=== PATIENT | male | born 1995 | race Caucasian/White ===

== ENCOUNTER 2019-09-28 17:19 | Observation (INO) | payer OTHER ==
[2019-09-28 17:29] VITALS: RESP 18
[2019-09-28] MEDS ORDERED: NALOXONE 0.4 MG/ML 1 ML VIAL IV PRN (18:02)
[2019-09-28] MEDS ORDERED: LORazepam 2 MG/ML INJ IV PRN (18:02)
--- NOTE | 2019-09-28 18:02 | ED ---
General Adult HPI - General Chief complaint: Nausea/Vomiting/Diarrhea Stated complaint: vomiting Time Seen by Provider: 09/28/19 17:30 Source: patient, EMS, RN notes reviewed, old records reviewed (Reviewed report from [facility]) Mode of arrival: EMS Limitations: no limitations - History of Present Illness Initial comments: Patient is a pleasant 23-year-old male presenting to the emergency Department as a transfer from [facility]. Patient has history of cyclic vomiting and states this is approximately his 12 time. Symptoms started this morning. Patient has vomited multiple times. Mild abdominal discomfort. patient diarrhea. No fevers. No bleeding. Patient admits to occasional marijuana use. Patient has been counseled on this. Patient has yet to see a a gastrointestinal specialist. - Related Data Allergies Allergy/AdvReac Type Severity Reaction Status Date / Time No Known Allergies Allergy Verified 09/28/19 17:25 Review of Systems ROS Statement: Those systems with pertinent positive or pertinent negative responses have been documented in the HPI. ROS Other: All systems not noted in ROS Statement are negative. Constitutional: Denies: fever Eyes: Denies: eye pain ENT: Denies: ear pain Respiratory: Denies: cough Cardiovascular: Denies: chest pain Endocrine: Denies: fatigue Gastrointestinal: Reports: nausea, vomiting. Denies: diarrhea, constipation Genitourinary: Denies: dysuria Musculoskeletal: Denies: back pain Skin: Denies: rash Neurological: Denies: weakness Past Medical History Past Medical History: No Reported History History of Any Multi-Drug Resistant Organisms: None Reported Past Surgical History: No Surgical Hx Reported Past Psychological History: No Psychological Hx Reported Smoking Status: Current every day smoker Past Alcohol Use History: None Reported Past Drug Use History: Marijuana General Exam Limitations: no limitations General appearance: alert, in no apparent distress Head exam: Present: normocephalic Eye exam: Present: normal appearance ENT exam: Present: normal oropharynx Neck exam: Present: normal inspection Respiratory exam: Present: normal lung sounds bilaterally Cardiovascular Exam: Present: regular rate, normal rhythm GI/Abdominal exam: Present: soft. Absent: distended, tenderness Extremities exam: Present: normal inspection Neurological exam: Present: alert Psychiatric exam: Present: normal affect, normal mood Skin exam: Present: normal color Course Vital Signs 09/28/19 17:26 Temperature 98.9 F Pulse Rate 61 Respiratory 18 Rate Blood Pressure 130/80 O2 Sat by Pulse 98 Oximetry Medical Decision Making - Medical Decision Making Chart reviewed. Case discussed with Dr. Bustillos, who will admit covering for hos pital call. Disposition Clinical Impression: Cyclical vomiting Disposition: ADMITTED IP TO THIS HOSP Is patient prescribed a controlled substance at d/c from ED?: No Referrals: None,Stated [Primary Care Provider] - 1-2 days Decision Time: 18:01
[2019-09-28] MEDS: SODIUM CHLORIDE 0.9% 1,000 ML IV SCH (20:21)
[2019-09-28] MEDS: PANTOPRAZOLE 40 MG/10 ML VIAL IV SCH (20:21)
[2019-09-28] MEDS ORDERED: ONDANSETRON 4 MG/2 ML VIAL IVP PRN (20:30)
--- NOTE | 2019-09-28 20:35 | P.HPIM ---
History of Present Illness H&P Date: 09/28/19 Chief Complaint: Nausea vomiting abdominal pain The patient is a 23-year-old male with a reported past medical history of cyclic vomiting syndrome, marijuana abuse disorder who was transferred here from [facility] after presented earlier today with chief complaint of sudden onset nausea vomiting abdominal cramps which reported severe without any significant radiation. The patient denies any diarrhea or constipation, but reports subjective fevers and chills. The patient reports that his symptoms are worsened by eating and drinking and only thing that helps is to be nothing by mouth. Apparently the patient has had multiple episodes with similar presentation and was referred to gastroenterology but hasn't been able to be seen by a GI doctor hence on presentation today the referred here for GI consultation. The patient was evaluated in the ED in [place] labs were done at the mouth is include a white count of 19 with left shift serum bicarb was 20, BUN/creatinine was 17 and 0.6 KUB was within normal limits. Patient was given Phenergan, GI cocktail, IV fluids and transferred here for GI consultation Review of Systems Pertinent pauses per HPI all other review of system is otherwise negative Past Medical History Past Medical History: No Reported History History of Any Multi-Drug Resistant Organisms: None Reported Past Surgical History: No Surgical Hx Reported Past Psychological History: No Psychological Hx Reported Smoking Status: Current every day smoker Past Alcohol Use History: None Reported Past Drug Use History: Marijuana Medications and Allergies Home Medications Medication Instructions Recorded Confirmed Type No Known Home Medications 09/28/19 09/28/19 History Allergies Allergy/AdvReac Type Severity Reaction Status Date / Time No Known Allergies Allergy Verified 09/28/19 18:23 Physical Exam Vitals: Vital Signs Temp Pulse Resp BP Pulse Ox 09/28/19 19:54 59 L 18 126/54 96 09/28/19 17:26 98.9 F 61 18 130/80 98 Intake and Output 09/28/19 09/28/19 09/28/19 06:59 14:59 22:59 Other: Weight 92.533 kg Constitutional: No acute distress, conversant, pleasant Eyes: Anicteric sclerae, moist conjunctiva, no lid-lag, PERRLA ENMT: NC/AT,Oropharynx clear, no erythema, exudates Neck:Supple, FROM, no masses, or JVD, No carotid bruits; No thyromegaly Lungs: Clear to auscultation, Clear to percussion, Normal respiratory effort, no accessory muscle use Cardiovascular: Heart regular in rate and rhythm, No murmurs, gallops, or rubs no peripheral edema Abdominal: Soft Nontender, nom distended, no guarding, no rebound or rigidity, Normoactive bowel sounds No hepatomegaly, No splenomegaly, No palpable mass No abdominal wall hernia noted Skin: Normal temperature, tone, texture, turgor, No induration No subcutaneous nodules, No rash, lesions, No ulcers Extremities:No digital cyanosis No clubbing, Pedal pulses intact and symmetrical Radial pulses intact and symmetrical Normal gait and station, No calf tenderness Psychiatric: Alert and oriented to person, place and time, Appropriate affect Intact judgement Neuro: Muscles Strength 5/5 in all 4 extremities, Sensation to light touch grossly present throughout, Cranial nerves II-XII grossly intact. No focal sensory deficits Assessment and Plan Assessment: Intractable nausea vomiting Abdominal pain History of cyclical vomiting syndrome Leukocytosis Plan: The patient is placed in observation status anticipated less than 2 midnight stay with intractable nausea vomiting and abdominal pain The patient with a history of cyclical vomiting syndrome with poor follow-up with GI was transferred here for GI consultation. The patient does not have any significant electrolyte abnormalities but does have a pronounced leukocytosis possibly acute phase stress response, he is afebrile. We'll continue supportive therapy with antiemetics, Zofran and IV fluids along with Bentyl with plans for GI consultation. Continue to follow the patient's clinical course CODE STATUS: Full code Anticipated discharge place: Home Discussed plan of care with: Patient Greater than 60 minutes was spent in evaluation of this patient
--- NOTE | 2019-09-28 21:11 | XR ---
EXAMINATION TYPE: XR chest 2V DATE OF EXAM: 09/28/2019 COMPARISON: Today HISTORY: Leukocytosis. Vomiting. TECHNIQUE: FINDINGS: Heart and mediastinum are normal. Lungs are clear. Diaphragm is normal. Bony thorax appears normal. IMPRESSION: Normal chest. No change.
[2019-09-28] MEDS: METOCLOPRAMIDE 5 MG/ML 2 ML VIAL IVP SCH (23:40)
[2019-09-28] MEDS: DICYCLOMINE 10 MG CAP PO SCH (23:40)
[2019-09-29] MEDS: SODIUM CHLORIDE 0.9% 1,000 ML IV SCH ×2 (02:23→11:23)
[2019-09-29] MEDS: METOCLOPRAMIDE 5 MG/ML 2 ML VIAL IVP SCH (05:32)
[2019-09-29 06:08] VITALS: BP 114/67; PULSE 52; TEMP 98.3
[2019-09-29] MEDS: DICYCLOMINE 10 MG CAP PO SCH (08:59)
[2019-09-29] MEDS: PANTOPRAZOLE 40 MG/10 ML VIAL IV SCH (08:59)
--- NOTE | 2019-09-29 10:36 | P.DS ---
Providers Date of admission: 09/28/19 18:02 Expected date of discharge: 09/29/19 Attending physician: Gil Barrientos MD Consults: 09/28/19 18:02 Consult Physician Urgent Consulting Provider: Kim Llanes Consult Reason/Comments: Cyclic vomiting Do you want consulting provider notified?: Yes Primary care physician: Stated None Hospital Course: The patient is a 23-year-old male with a reported past medical history of cyclic vomiting syndrome, marijuana abuse disorder who was transferred here from [facility] after presented earlier today with chief complaint of sudden onset nausea vomiting abdominal cramps which reported severe without any significant radiation. The patient was evaluated in the ED in [place] labs were done at the mouth is include a white count of 19 with left shift serum bicarb was 20, BUN/creatinine was 17 and 0.6 KUB was within normal limits. Patient was given Phenergan, GI cocktail, IV fluids and transferred here for GI consultation. Patient was initially started on normal saline at 125 mL per hour. He was given Protonix IV. He was given Zofran as needed for nausea and vomiting. His symptoms resolved the day after admission. Patient was seen and examined. No acute events overnight. Patient reports no further abdominal pain. No nausea or vomiting. No fever or chills. He does report anxiety and history of panic attacks at least twice a week. Patient smokes marijuana since age of 7. General: [non toxic], [no distress], [appears at stated age] Derm: [warm], [dry] Head: [atraumatic], [normocephalic], [symmetric] Eyes: [EOMI], [no lid lag], [anicteric sclera] Mouth: [no lip lesion], [mucus membranes moist] Cardiovascular: [S1S2 reg], [no murmur], [positive posterior tibial pulse bilateral], Lungs: [CTA bilateral], [no rhonchi, no rales] , [no accessory muscle use] Abdominal: [soft], [ nontender to palpation], [no guarding], [no appreciable organomegaly] Ext: [no gross muscle atrophy], [no edema], [no contractures] Neuro: [no focal neuro deficits] Psych: [Alert], [oriented], [appropriate affect] Intractable nausea and vomiting Abdominal pain History of cyclical vomiting syndrome Leukocytosis Patient symptoms have resolved. His nausea and vomiting is likely related to cyclical vomiting syndrome which is exacerbated by marijuana use. Patient was advised against marijuana use. Patient was advised that he would benefit from treatment of anxiety and panic attacks as this could be the cause of his cyclical vomiting. We'll discharge patient today to follow-up with his PCP within 3 days. Prescription for Zofran will be given on discharge. Patient verbalized understanding of the plan. Patient Condition at Discharge: Stable Plan - Discharge Summary New Discharge Prescriptions: New Ondansetron Odt [Zofran Odt] 4 mg PO Q8HR PRN #30 tab PRN Reason: Nausea And Vomiting Discharge Medication List Ondansetron Odt [Zofran Odt] 4 mg PO Q8HR PRN #30 tab 09/29/19 [Rx] Follow up Appointment(s)/Referral(s): None,Stated [Primary Care Provider] - 1-2 days Activity/Diet/Wound Care/Special Instructions: Diet: Low fiber Follow-up with PCP within 3 days of discharge. Discharge Disposition: HOME SELF-CARE
== END 2019-09-29 11:25 | disposition home or self-care (01) ==
LOC: EC 17:19 → 6NMEDSUR 18:02
PROVIDERS: ADMIT Family Medicine; ATTEND Family Medicine
DX: R11.15 Cyclical vomiting syndrome unrelated to migraine (principal); F12.10 Cannabis abuse, uncomplicated; R10.9 Unspecified abdominal pain; D72.829 Elevated white blood cell count, unspecified; F17.200 Nicotine dependence, unspecified, uncomplicated
CPT/HCPCS: 96376; 96361 ×2; 96374; 96375; 99285; 71046; G0378 ×2; J2765 ×2; C9113 ×2

== ENCOUNTER 2019-11-21 01:50 | Observation (INO) | payer OTHER ==
[2019-11-21] MEDS ORDERED: SODIUM CHLORIDE 0.9% 1,000 ML IV STA ×2 (01:55)
[2019-11-21] MEDS ORDERED: SODIUM CHLORIDE 0.9% 500 ML 500 ML IV STA (01:55)
[2019-11-21] MEDS ORDERED: ONDANSETRON 4 MG/2 ML VIAL IVP STA (01:55)
[2019-11-21] MEDS ORDERED: PANTOPRAZOLE 40 MG/10 ML VIAL IVP STA (01:55)
--- NOTE | 2019-11-21 01:56 | ED ---
Nausea/Vomiting/Diarrhea HPI - General Chief complaint: Nausea/Vomiting/Diarrhea Stated complaint: vomiting Time Seen by Provider: 11/21/19 01:53 Source: patient, EMS, RN notes reviewed, old records reviewed Mode of arrival: EMS Limitations: no limitations - History of Present Illness MD complaint: nausea, vomiting, diarrhea -: days(s) Description of Vomiting: food contents Description of Diarrhea: mucous Associated Abdominal Pain: Yes Location: diffuse Radiation: none Severity: severe Severity scale (1-10): 8 Quality: cramping, aching Consistency: constant Improves with: none Worsens with: vomiting Context: sick contacts Associated Symptoms: myalgias, loss of appetite, nausea/vomiting, weakness - Related Data Previous Rx's Medication Instructions Recorded Ondansetron [Zofran] 4 mg PO Q12HR PRN #8 tab 11/21/19 Pantoprazole Sodium [Protonix] 40 mg PO DAILY #30 tablet. 11/21/19 Allergies Allergy/AdvReac Type Severity Reaction Status Date / Time No Known Allergies Allergy Verified 09/28/19 18:23 Review of Systems ROS Statement: Those systems with pertinent positive or pertinent negative responses have been documented in the HPI. ROS Other: All systems not noted in ROS Statement are negative. Past Medical History Past Medical History: No Reported History History of Any Multi-Drug Resistant Organisms: None Reported Past Surgical History: No Surgical Hx Reported Past Psychological History: No Psychological Hx Reported Smoking Status: Current every day smoker Past Alcohol Use History: None Reported Past Drug Use History: Marijuana - Past Family History Father Family Medical History: Diabetes Mellitus Additional Family Medical History / Comment(s): . Alcoholism. Mother History Unknown: Yes Additional Family Medical History / Comment(s): Hypoglycemia General Exam Limitations: no limitations General appearance: alert, in no apparent distress Head exam: Present: atraumatic, normocephalic, normal inspection Eye exam: Present: normal appearance, PERRL, EOMI. Absent: scleral icterus, conjunctival injection, periorbital swelling ENT exam: Present: normal exam, mucous membranes moist Neck exam: Present: normal inspection. Absent: tenderness, meningismus, lymphadenopathy Respiratory exam: Present: normal lung sounds bilaterally. Absent: respiratory distress, wheezes, rales, rhonchi, stridor Cardiovascular Exam: Present: regular rate, normal rhythm, normal heart sounds. Absent: systolic murmur, diastolic murmur, rubs, gallop, clicks GI/Abdominal exam: Present: soft, normal bowel sounds. Absent: distended, tenderness, guarding, rebound, rigid Extremities exam: Present: normal inspection, full ROM, normal capillary refill. Absent: tenderness, pedal edema, joint swelling, calf tenderness Back exam: Present: normal inspection Neurological exam: Present: alert, oriented X3, CN II-XII intact Psychiatric exam: Present: normal affect, normal mood Skin exam: Present: warm, dry, intact, normal color. Absent: rash Course Vital Signs 11/21/19 11/21/19 11/21/19 01:51 03:10 03:59 Temperature 98.7 F 98.6 F Pulse Rate 67 62 Pulse Rate [ 67 Pulse Oximetery ] Respiratory 18 16 18 Rate Blood Pressure 154/82 112/57 Blood Pressure 106/65 [Left Arm Supine] O2 Sat by Pulse 98 97 95 Oximetry Medical Decision Making - Lab Data Result diagrams: 11/21/19 02:26 11/21/19 02:26 Lab Results 11/21/19 11/21/19 11/21/19 Range/Units 02:26 02:26 02:26 WBC 15.1 H (3.8-10.6) k/uL RBC 5.17 (4.30-5.90) m/uL Hgb 16.8 (13.0-17.5) gm/dL Hct 48.5 (39.0-53.0) % MCV 93.7 (80.0-100.0) fL MCH 32.5 (25.0-35.0) pg MCHC 34.7 (31.0-37.0) g/dL RDW 12.7 (11.5-15.5) % Plt Count 278 (150-450) k/uL Neutrophils % 90 % Lymphocytes % 6 % Monocytes % 3 % Eosinophils % 1 % Basophils % 0 % Neutrophils # 13.6 H (1.3-7.7) k/uL Lymphocytes # 0.8 L (1.0-4.8) k/uL Monocytes # 0.4 (0-1.0) k/uL Eosinophils # 0.1 (0-0.7) k/uL Basophils # 0.0 (0-0.2) k/uL Sodium 139 (137-145) mmol/L Potassium 3.9 (3.5-5.1) mmol/L Chloride 103 (98-107) mmol/L Carbon Dioxide 22 (22-30) mmol/L Anion Gap 14 mmol/L BUN 19 (9-20) mg/dL Creatinine 0.63 L (0.66-1.25) mg/dL Est GFR (CKD-EPI)AfAm >90 (>60 ml/min/1.73 sqM) Est GFR (CKD-EPI)NonAf >90 (>60 ml/min/1.73 sqM) Glucose 145 H (74-99) mg/dL Plasma Lactic Acid Rodger 1.5 (0.7-2.0) mmol/L Calcium 10.6 H (8.4-10.2) mg/dL Phosphorus 3.2 (2.5-4.5) mg/dL Magnesium 1.8 (1.6-2.3) mg/dL Total Bilirubin 1.1 (0.2-1.3) mg/dL AST 24 (17-59) U/L ALT 30 (4-49) U/L Alkaline Phosphatase 45 (38-126) U/L Creatine Kinase 163 (55-170) U/L Total Protein 8.7 H (6.3-8.2) g/dL Albumin 5.4 H (3.5-5.0) g/dL Disposition Clinical Impression: Dehydration, Cyclical vomiting, Intractable nausea and vomiting Disposition: ADMITTED IP TO THIS [facility] Condition: Good Is patient prescribed a controlled substance at d/c from ED?: No
[2019-11-21] MEDS ORDERED: DIAZEPAM 5 MG/ML 2 ML INJ IVP STA (01:58)
[2019-11-21 02:37] LABS: Basophils % (A) 0 %; Eosinophils # (A) 0.1 k/uL (0-0.7); Eosinophils % (A) 1 %; HCT 48.5 % (39.0-53.0); HGB 16.8 gm/dL (13.0-17.5); Lymphocytes # (A) 0.8 k/uL (1.0-4.8); Lymphocytes % (A) 6 %; MCH 32.5 pg (25.0-35.0); MCHC 34.7 g/dL (31.0-37.0); MCV 93.7 fL (80.0-100.0); Mean Platelet Volume 7.7; Monocytes # (A) 0.4 k/uL (0-1.0); Monocytes % (A) 3 %; Neutrophils # (A) 13.6 k/uL (1.3-7.7); Neutrophils % (A) 90 %; Platelet Count 278 k/uL (150-450); RBC 5.17 m/uL (4.30-5.90); RDW 12.7 % (11.5-15.5); WBC 15.1 k/uL (3.8-10.6)
[2019-11-21 02:47] LABS: ALT 30 U/L (4-49); AST 24 U/L (17-59); African American GFR (CKD) >90 (>60 ml/min/1.73 sqM); Albumin 5.4 g/dL (3.5-5.0); Alkaline Phosphatase 45 U/L (38-126); Anion Gap 14 mmol/L; Blood Urea Nitrogen 19 mg/dL (9-20); Calcium 10.6 mg/dL (8.4-10.2); Carbon Dioxide 22 mmol/L (22-30); Chloride 103 mmol/L (98-107); Creatine Kinase 163 U/L (55-170); Glucose 145 mg/dL (74-99); Magnesium 1.8 mg/dL (1.6-2.3); Non-African American GFR(CKD) >90 (>60 ml/min/1.73 sqM); Phosphorus 3.2 mg/dL (2.5-4.5); Potassium 3.9 mmol/L (3.5-5.1); Sodium 139 mmol/L (137-145); Total Bilirubin 1.1 mg/dL (0.2-1.3); Total Protein 8.7 g/dL (6.3-8.2)
[2019-11-21] MEDS ORDERED: ONDANSETRON 4 MG/2 ML VIAL IVP PRN (03:33)
[2019-11-21] MEDS ORDERED: DIAZEPAM 5 MG/ML 2 ML INJ IVP PRN (03:33)
[2019-11-21 05:15] LABS: Appearance,Urine Clear (Clear); Bilirubin,Urine Negative (Negative); Blood,Urine Negative (Negative); Color,Urine Yellow; Glucose,Urine (UA) Negative (Negative); Hyaline Casts,Urine 1 /lpf (0-2); Ketones,Urine 3+ (Negative); Leukocyte Esterase,Urine Negative (Negative); Mucus,Urine Many /hpf; Nitrite,Urine Negative (Negative); Protein,Urine 1+ (Negative); RBC,Urine 4 /hpf (0-5); Specific Gravity,Urine 1.028 (1.001-1.035); Squamous Epithelial Cell,Urine <1 /hpf (0-4); Urobilinogen,Urine <2.0 mg/dL (<2.0); WBC,Urine 8 /hpf (0-5)
[2019-11-21] MEDS ORDERED: PANTOPRAZOLE 40 MG/10 ML VIAL IVP SCH (09:00)
[2019-11-21 11:51] VITALS: BP 147/73; PULSE 64; RESP 17; TEMP 98.2
--- NOTE | 2019-11-21 21:14 | HP ---
HISTORY AND PHYSICAL This is a combination history and physical and discharge summary. HISTORY AND PHYSICAL/DISCHARGE SUMMARY: CHIEF COMPLAINT: Abdominal pain and vomiting. HISTORY OF PRESENT ILLNESS: This 24-year-old gentleman with past medical history of multiple medical problems including history of cyclical vomiting with multiple hospital admissions, history of anxiety, PTSD, history of nicotine dependence, being followed by primary physician apparently in [facility], was complaining of significant vomiting. The patient also had some abdominal discomfort. Patient came to [facility] and was admitted for further evaluation and treatment. The patient also had elevated white count. Otherwise, there is no history of fever, rigors, chills at this time. No chest pain, palpitations. After receiving treatment, patient is feeling slightly better. PAST MEDICAL HISTORY: History of cyclical vomiting. History of anxiety, PTSD, history of THC. MEDICATIONS: Prior to admission include: 1. Protonix 40 mg daily. 2. Zofran. ALLERGIES: None. FAMILY HISTORY: History of diabetes mellitus and alcoholics in the family. SOCIAL HISTORY: History of smoking. History of THC. REVIEW OF SYSTEMS: ENT: No diminished vision. No diminished hearing. CARDIOVASCULAR: No angina or palpitations. RESPIRATIONS: As mentioned earlier. GASTROINTESTINAL: As mentioned earlier. no dysuria. NERVOUS SYSTEM: No numbness or weakness. ALLERGY/IMMUNOLOGY: No asthma or hayfever. MUSCULOSKELETAL as mentioned earlier. HEMATOLOGY/ONCOLOGY: No history of anemia. ENDOCRINE: No history of diabetes or hypothyroidism. CONSTITUTIONAL: As mentioned earlier. DERMATOLOGY: Negative. RHEUMATOLOGY: Negative. PSYCHIATRIC: As mentioned earlier. PHYSICAL EXAMINATION: Alert and oriented times three. Pulse 64. Blood pressure 147/73. Respirations 17. Temperature 98.2, pulse ox 98% on room air. HEENT: Conjunctivae normal. NECK: No JVD. CARDIOVASCULAR: S1, S2 muffled. RESPIRATORY: Breath sounds diminished in the bases. A few scattered rhonchi and crackles. ABDOMEN: Soft, nontender. No mass palpable. LEGS: No edema. No swelling. NERVOUS SYSTEM: Higher functions as mentioned earlier. Moves all four limbs. No focal motor or sensory deficits. LYMPHATICS: No lymph nodes palpable in the neck, axillae or groin. SKIN: No ulcer. No rash and no bleeding. JOINTS: No active deforming arthropathy. LABS: WBC 15.1, glucose 145, calcium is 10.6. ASSESSMENT: 1. Cyclical vomiting syndrome with severe nausea, vomiting, accelerated dehydration, present on admission. 2. Increased WBC possibly reactive. 3. Increased random blood sugar. 4. Increased calcium. 5. History of anxiety, PTSD. 6. History of nicotine dependence. 7. History of THC. RECOMMENDATIONS AND DISCUSSION: In this 24-year-old gentleman who presented with multiple complex medical issues, we will monitor the patient closely, continue the current medications, management and symptomatic treatment. I recommend an upper endoscopy by Dr. Goss if the symptoms persist. Otherwise, recommend to stop THC and will recommend to continue the home medications. The patient is extremely keen on going home. The patient is willing to follow up with primary physician as well as Gastroenterology. The patient will be discharged if the patient is able to tolerate food with the following advice and medications: DISCHARGE ADVICE AND MEDICATIONS: 1. Diet is soft, bland as tolerated. 2. Medications: 3. Protonix 40 mg daily. 4. Zofran 4 mg p.o. b.i.d. p.r.n. MMCHELSEA / EVETTEN: [id number] /
== END 2019-11-21 12:31 | disposition home or self-care (01) ==
LOC: EC 01:50 → 5NMEDONC 03:35
PROVIDERS: ADMIT Hospitalist; ATTEND Hospitalist
DX: R11.15 Cyclical vomiting syndrome unrelated to migraine (principal); E86.0 Dehydration; D72.829 Elevated white blood cell count, unspecified; R73.09 Other abnormal glucose; E83.50 Unspecified disorder of calcium metabolism; R63.0 Anorexia; M79.10 Myalgia, unspecified site; F12.90 Cannabis use, unspecified, uncomplicated; F43.10 Post-traumatic stress disorder, unspecified; F41.9 Anxiety disorder, unspecified; F17.200 Nicotine dependence, unspecified, uncomplicated; Z83.3 Family history of diabetes mellitus; Z81.1 Family history of alcohol abuse and dependence
CPT/HCPCS: 96376; 96361; 96374; 96375; 99285; 36415; 80053; 82550; 83605; 83735; 84100; 85025; 81001; G0378; J3360; J2405; C9113

== ENCOUNTER 2019-12-10 12:56 | Emergency (ER) | payer OTHER ==
[2019-12-10] MEDS ORDERED: SODIUM CHLORIDE 0.9% 2,000 ML IV STA (12:58)
[2019-12-10] MEDS ORDERED: diphenhydrAMINE 50 MG/ML 1 ML VIAL IVP STA (12:58)
[2019-12-10] MEDS ORDERED: ONDANSETRON 4 MG/2 ML VIAL IVP STA (12:58)
[2019-12-10] MEDS ORDERED: PROMETHAZINE INJ 25 MG in SODIUM CHLORIDE 0.9% 50 ML IVPB STA (13:00)
[2019-12-10 13:06] VITALS: BP 127/83; PULSE 64; RESP 18; TEMP 98
--- NOTE | 2019-12-10 13:31 | ED ---
General Adult HPI - General Chief complaint: Anxiety Stated complaint: Vomiting, Anxiety Time Seen by Provider: 12/10/19 12:57 Source: patient, EMS, RN notes reviewed Mode of arrival: EMS Limitations: no limitations - History of Present Illness Initial comments: This is a 24-year-old male presents emergency Department chief complaint of nausea vomiting. Patient has a history of cyclic vomiting syndrome. Patient states that he recently moved to the area. He is to be seen primarily at [facility] and [facility]. Patient has been admitted in the past. Patient states he takes Zofran and Protonix he is out of his Zofran. He has no point of severe localized abdominal pain states is diffuse in nature. He states he just has not felt well over the last couple days. He states he stressed out at home secondary to his stomach virus, stress from his kids. Patient denies being suicidal or homicidal. Denies any chest pain or shortness of breath. - Related Data Previous Rx's Medication Instructions Recorded Ondansetron [Zofran] 4 mg PO Q12HR PRN #8 tab 11/21/19 Pantoprazole Sodium [Protonix] 40 mg PO DAILY #30 tablet. 11/21/19 Promethazine [Phenergan] 25 mg PO Q6HR PRN #15 tablet 12/10/19 Allergies Allergy/AdvReac Type Severity Reaction Status Date / Time No Known Allergies Allergy Verified 09/28/19 18:23 Review of Systems ROS Statement: Those systems with pertinent positive or pertinent negative responses have been documented in the HPI. ROS Other: All systems not noted in ROS Statement are negative. Past Medical History Past Medical History: No Reported History Additional Past Medical History / Comment(s): Cyclic vomiting syndrome History of Any Multi-Drug Resistant Organisms: None Reported Past Surgical History: No Surgical Hx Reported Additional Past Surgical History / Comment(s): Stitches, plantar wart removed Past Anesthesia/Blood Transfusion Reactions: No Reported Reaction Past Psychological History: No Psychological Hx Reported Smoking Status: Current every day smoker Past Alcohol Use History: None Reported Past Drug Use History: Marijuana - Past Family History Father Family Medical History: Diabetes Mellitus Additional Family Medical History / Comment(s): . Alcoholism. Mother History Unknown: Yes Additional Family Medical History / Comment(s): Hypoglycemia General Exam Limitations: no limitations General appearance: alert, in no apparent distress Head exam: Present: atraumatic, normocephalic, normal inspection Eye exam: Present: normal appearance, PERRL, EOMI. Absent: scleral icterus, conjunctival injection, periorbital swelling ENT exam: Present: normal exam, normal oropharynx, mucous membranes moist, TM's normal bilaterally Neck exam: Present: normal inspection, full ROM. Absent: tenderness, meningismus, lymphadenopathy Respiratory exam: Present: normal lung sounds bilaterally. Absent: respiratory distress, wheezes, rales, rhonchi, stridor Cardiovascular Exam: Present: regular rate, normal rhythm, normal heart sounds. Absent: systolic murmur, diastolic murmur, rubs, gallop, clicks GI/Abdominal exam: Present: soft, tenderness (Minimal diffuse), normal bowel sounds. Absent: distended, guarding, rebound, rigid Neurological exam: Present: alert, oriented X3, CN II-XII intact Skin exam: Present: warm, dry, intact, normal color. Absent: rash Course Vital Signs 12/10/19 13:00 Temperature 98.0 F Pulse Rate 64 Respiratory 18 Rate Blood Pressure 127/83 O2 Sat by Pulse 98 Oximetry - Reevaluation(s) Reevaluation #1: 12/10/19 13:51 Patient reevaluated states it is feeling much improved at this time. Medical Decision Making - Medical Decision Making Patient presented for cyclic vomiting syndrome. I do feel this is most likely related to his marijuana use in which he's been told to discontinue. Patient is reviewed no significant findings. Patient will be discharged stable condition with GI follow-up, antiemetics. - Lab Data Result diagrams: 12/10/19 13:14 12/10/19 13:14 Lab Results 12/10/19 12/10/19 Range/Units 13:14 13:14 WBC 11.5 H (3.8-10.6) k/uL RBC 5.00 (4.30-5.90) m/uL Hgb 16.6 (13.0-17.5) gm/dL Hct 48.0 (39.0-53.0) % MCV 96.0 (80.0-100.0) fL MCH 33.2 (25.0-35.0) pg MCHC 34.5 (31.0-37.0) g/dL RDW 12.1 (11.5-15.5) % Plt Count 233 (150-450) k/uL Neutrophils % 87 % Lymphocytes % 9 % Monocytes % 3 % Eosinophils % 0 % Basophils % 0 % Neutrophils # 10.1 H (1.3-7.7) k/uL Lymphocytes # 1.0 (1.0-4.8) k/uL Monocytes # 0.3 (0-1.0) k/uL Eosinophils # 0.0 (0-0.7) k/uL Basophils # 0.1 (0-0.2) k/uL Sodium 139 (137-145) mmol/L Potassium 4.0 (3.5-5.1) mmol/L Chloride 106 (98-107) mmol/L Carbon Dioxide 21 L (22-30) mmol/L Anion Gap 12 mmol/L BUN 16 (9-20) mg/dL Creatinine 0.69 (0.66-1.25) mg/dL Est GFR (CKD-EPI)AfAm >90 (>60 ml/min/1.73 sqM) Est GFR (CKD-EPI)NonAf >90 (>60 ml/min/1.73 sqM) Glucose 106 H (74-99) mg/dL Calcium 9.6 (8.4-10.2) mg/dL Total Bilirubin 1.3 (0.2-1.3) mg/dL AST 22 (17-59) U/L ALT 18 (4-49) U/L Alkaline Phosphatase 42 (38-126) U/L Total Protein 7.8 (6.3-8.2) g/dL Albumin 4.8 (3.5-5.0) g/dL Amylase 47 (30-110) U/L Lipase 71 (23-300) U/L Disposition Clinical Impression: Cyclical vomiting Disposition: HOME SELF-CARE Condition: Stable Instructions (If sedation given, give patient instructions): Cyclic Vomiting Syndrome (ED) Additional Instructions: Please return to the Emergency Department if symptoms worsen or any other concerns. Prescriptions: Promethazine [Phenergan] 25 mg PO Q6HR PRN #15 tablet PRN Reason: Nausea Is patient prescribed a controlled substance at d/c from ED?: No Referrals: None,Stated [Primary Care Provider] - 1-2 days Time of Disposition: 13:53
[2019-12-10 13:38] LABS: Basophils # (A) 0.1 k/uL (0-0.2); Basophils % (A) 0 %; Eosinophils % (A) 0 %; HGB 16.6 gm/dL (13.0-17.5); Lymphocytes % (A) 9 %; MCH 33.2 pg (25.0-35.0); MCHC 34.5 g/dL (31.0-37.0); Mean Platelet Volume 7.4; Monocytes # (A) 0.3 k/uL (0-1.0); Monocytes % (A) 3 %; Neutrophils # (A) 10.1 k/uL (1.3-7.7); Neutrophils % (A) 87 %; Platelet Count 233 k/uL (150-450); RDW 12.1 % (11.5-15.5); WBC 11.5 k/uL (3.8-10.6)
[2019-12-10 13:50] LABS: ALT 18 U/L (4-49); AST 22 U/L (17-59); African American GFR (CKD) >90 (>60 ml/min/1.73 sqM); Albumin 4.8 g/dL (3.5-5.0); Alkaline Phosphatase 42 U/L (38-126); Amylase 47 U/L (30-110); Anion Gap 12 mmol/L; Blood Urea Nitrogen 16 mg/dL (9-20); Calcium 9.6 mg/dL (8.4-10.2); Carbon Dioxide 21 mmol/L (22-30); Chloride 106 mmol/L (98-107); Glucose 106 mg/dL (74-99); Non-African American GFR(CKD) >90 (>60 ml/min/1.73 sqM); Sodium 139 mmol/L (137-145); Total Bilirubin 1.3 mg/dL (0.2-1.3); Total Protein 7.8 g/dL (6.3-8.2)
== END 2019-12-10 14:39 | disposition home or self-care (01) ==
LOC: EC 12:56
DX: R11.15 Cyclical vomiting syndrome unrelated to migraine (principal); F17.200 Nicotine dependence, unspecified, uncomplicated
CPT/HCPCS: 99284; 96365; 96375 ×2; 96361; 36415; 80053; 82150; 83690; 85025; J1200; J2550; J2405

== ENCOUNTER 2019-12-24 12:05 | Observation (INO) | payer OTHER ==
[2019-12-24] MEDS ORDERED: SODIUM CHLORIDE 0.9% 1,000 ML IV STA ×2 (12:19→14:00)
[2019-12-24] MEDS ORDERED: diphenhydrAMINE 50 MG/ML 1 ML VIAL IVP STA (12:19)
[2019-12-24] MEDS ORDERED: PANTOPRAZOLE 40 MG/10 ML VIAL IVP STA (12:19)
--- NOTE | 2019-12-24 12:24 | ED ---
Nausea/Vomiting/Diarrhea HPI - General Chief complaint: Nausea/Vomiting/Diarrhea Stated complaint: Vomiting Time Seen by Provider: 12/24/19 12:07 Source: patient Mode of arrival: EMS Limitations: no limitations - History of Present Illness Initial comments: Patient is a 24-year-old male presenting to the emergency Department, via EMS, with complaints of vomiting that started this morning. Patient has a history of cyclic vomiting syndrome. He was in here approximately 2 weeks ago for same complaint. Patient states he does have Zofran, Protonix, Pepcid at home however he was unable to keep these medicines down. Patient states he did follow up wi GI. Patient received 4 mg of Zofran in the EMS prior to arrival. Patient does admit to generalized abdominal cramping, no specific abdominal pain. He denies any chest pain, short of breath, fever. Patient states he is having chills. Patient denies any diarrhea. Patient does admit to smoking marijuana although he does not believe this is the cause of his vomiting. He has no other complaints at this time. - Related Data Home Medications Medication Instructions Recorded Confirmed Famotidine 20 mg PO HS 12/24/19 12/24/19 Ondansetron [Zofran ODT] 8 mg PO Q12H PRN 12/24/19 12/24/19 Pantoprazole Sodium [Protonix] 40 mg PO BID 12/24/19 12/24/19 Allergies Allergy/AdvReac Type Severity Reaction Status Date / Time No Known Allergies Allergy Verified 12/24/19 15:34 Review of Systems ROS Statement: Those systems with pertinent positive or pertinent negative responses have been documented in the HPI. ROS Other: All systems not noted in ROS Statement are negative. Past Medical History Past Medical History: No Reported History Additional Past Medical History / Comment(s): Cyclic vomiting syndrome History of Any Multi-Drug Resistant Organisms: None Reported Past Surgical History: No Surgical Hx Reported Additional Past Surgical History / Comment(s): Stitches, plantar wart removed Past Anesthesia/Blood Transfusion Reactions: No Reported Reaction Past Psychological History: No Psychological Hx Reported Smoking Status: Current every day smoker Past Alcohol Use History: None Reported Past Drug Use History: Marijuana - Past Family History Father Family Medical History: Diabetes Mellitus Additional Family Medical History / Comment(s): . Alcoholism. Mother History Unknown: Yes Additional Family Medical History / Comment(s): Hypoglycemia General Exam - General Exam Comments Initial Comments: GENERAL: Patient appears fatigued, in no acute distress. HEAD: Atraumatic, normocephalic. EYES: Pupils equal round and reactive to light, extraocular movements intact, sclera anicteric, conjunctiva are normal. ENT: TMs normal, nares patent, oropharynx clear without exudates. Moist mucous membranes. NECK: Normal range of motion, supple without lymphadenopathy or JVD. LUNGS: Breath sounds clear to auscultation bilaterally and equal. No wheezes rales or rhonchi. HEART: Regular rate and rhythm without murmurs, rubs or gallops. ABDOMEN: Generalized abdominal discomfort/cramping, no specific abdominal pain . Soft, normoactive bowel sounds. No guarding, no rebound. No masses appreciated. : Deferred EXTREMITIES: Normal range of motion, no pitting or edema. No clubbing or cyanosis. NEUROLOGICAL: Normal speech, normal gait. PSYCH: Normal mood, normal affect. SKIN: Warm, Dry, normal turgor, no rashes or lesions noted. Limitations: no limitations Course Vital Signs 12/24/19 12/24/19 12/24/19 12:07 13:14 14:00 Temperature 98.0 F Pulse Rate 55 L 82 98 Respiratory 20 20 20 Rate Blood Pressure 136/85 114/65 158/67 O2 Sat by Pulse 100 99 99 Oximetry 12/24/19 14:56 Temperature Pulse Rate 92 Respiratory 20 Rate Blood Pressure 108/65 O2 Sat by Pulse 99 Oximetry Medical Decision Making - Medical Decision Making Patient is a 24-year-old male here for vomiting, he has history of cyclic vomiting syndrome. Patient has been uncomfortable and dry heaving in the ER. Patient received 4 mg of Zofran and the EMS prior to arrival. Lab work reveals like leukocytosis 18.7, most likely reactive in nature. No other acute abnormalities and lab work. Patient was given fluids, Protonix, Benadryl, Zofran, Reglan, Ativan. He still is of vomiting and feeling weak and uncomf ortable. Patient also appears to be having anxiety while in the ER and with discussion of being discharged. Patient will be admitted for intractable nausea and vomiting. Patient was discussed with Dr. Ortega who accepts the patient. H&H is agreement with this plan of care. Case discussed with Dr. Ochoa. - Lab Data Result diagrams: 12/24/19 12:29 12/24/19 12:29 Lab Results 12/24/19 12/24/19 Range/Units 12:29 12:29 WBC 18.7 H (3.8-10.6) k/uL RBC 5.08 (4.30-5.90) m/uL Hgb 16.0 (13.0-17.5) gm/dL Hct 48.9 (39.0-53.0) % MCV 96.3 (80.0-100.0) fL MCH 31.5 (25.0-35.0) pg MCHC 32.7 (31.0-37.0) g/dL RDW 12.2 (11.5-15.5) % Plt Count 253 (150-450) k/uL Neutrophils % 86 % Lymphocytes % 9 % Monocytes % 3 % Eosinophils % 0 % Basophils % 0 % Neutrophils # 16.1 H (1.3-7.7) k/uL Lymphocytes # 1.7 (1.0-4.8) k/uL Monocytes # 0.6 (0-1.0) k/uL Eosinophils # 0.1 (0-0.7) k/uL Basophils # 0.0 (0-0.2) k/uL Sodium 139 (137-145) mmol/L Potassium 4.1 (3.5-5.1) mmol/L Chloride 107 (98-107) mmol/L Carbon Dioxide 20 L (22-30) mmol/L Anion Gap 12 mmol/L BUN 15 (9-20) mg/dL Creatinine 0.61 L (0.66-1.25) mg/dL Est GFR (CKD-EPI)AfAm >90 (>60 ml/min/1.73 sqM) Est GFR (CKD-EPI)NonAf >90 (>60 ml/min/1.73 sqM) Glucose 161 H (74-99) mg/dL Calcium 9.5 (8.4-10.2) mg/dL Total Bilirubin 0.6 (0.2-1.3) mg/dL AST 31 (17-59) U/L ALT 30 (4-49) U/L Alkaline Phosphatase 45 (38-126) U/L Total Protein 7.6 (6.3-8.2) g/dL Albumin 4.7 (3.5-5.0) g/dL Disposition Clinical Impression: Intractable nausea and vomiting Disposition: ADMITTED IP TO THIS HOSP Condition: Stable Is patient prescribed a controlled substance at d/c from ED?: No Decision Date: 12/24/19 Decision Time: 14:55
[2019-12-24 12:47] LABS: Basophils % (A) 0 %; Eosinophils # (A) 0.1 k/uL (0-0.7); Eosinophils % (A) 0 %; HCT 48.9 % (39.0-53.0); Lymphocytes # (A) 1.7 k/uL (1.0-4.8); Lymphocytes % (A) 9 %; MCH 31.5 pg (25.0-35.0); MCHC 32.7 g/dL (31.0-37.0); MCV 96.3 fL (80.0-100.0); Mean Platelet Volume 7.9; Monocytes # (A) 0.6 k/uL (0-1.0); Monocytes % (A) 3 %; Neutrophils # (A) 16.1 k/uL (1.3-7.7); Neutrophils % (A) 86 %; Platelet Count 253 k/uL (150-450); RBC 5.08 m/uL (4.30-5.90); RDW 12.2 % (11.5-15.5); WBC 18.7 k/uL (3.8-10.6)
[2019-12-24 12:59] LABS: ALT 30 U/L (4-49); AST 31 U/L (17-59); African American GFR (CKD) >90 (>60 ml/min/1.73 sqM); Albumin 4.7 g/dL (3.5-5.0); Alkaline Phosphatase 45 U/L (38-126); Anion Gap 12 mmol/L; Blood Urea Nitrogen 15 mg/dL (9-20); Calcium 9.5 mg/dL (8.4-10.2); Carbon Dioxide 20 mmol/L (22-30); Chloride 107 mmol/L (98-107); Glucose 161 mg/dL (74-99); Non-African American GFR(CKD) >90 (>60 ml/min/1.73 sqM); Potassium 4.1 mmol/L (3.5-5.1); Sodium 139 mmol/L (137-145); Total Bilirubin 0.6 mg/dL (0.2-1.3); Total Protein 7.6 g/dL (6.3-8.2)
[2019-12-24] MEDS ORDERED: METOCLOPRAMIDE 5 MG/ML 2 ML VIAL IVP STA (13:15)
[2019-12-24] MEDS ORDERED: LORazepam 2 MG/ML INJ IV STA (14:41)
[2019-12-24] MEDS ORDERED: ONDANSETRON 4 MG/2 ML VIAL IVP PRN ×2 (14:53→17:48)
[2019-12-24] MEDS ORDERED: NALOXONE 0.4 MG/ML 1 ML VIAL IV PRN (14:53)
[2019-12-24] MEDS ORDERED: DEXTROSE 5%-0.9% NACL 1,000 ML IV SCH (18:00)
--- NOTE | 2019-12-24 18:46 | P.HPIM ---
History of Present Illness This is a pleasant 24 years old male with past medical history of cyclic vomiting since last years with frequent hospitalizing within that time., And this hospital he was admitted about 2 weeks ago when he was DC'd from the emergency room and one more time about one month ago when he was admitted to the hospital for the same reason (vomiting and leukocytosis) was treated symptomatically and discharged in one day. Patient states yesterday his vomiting was nonstop so he decided to come to the hospital, he has some mild epigastric discomfort associated with mild tenderness on deep palpation only. Patient denies fever, no change in mental status, his bowel movements is more constipated due to his low oral intake Patient is in distress due to repeated vomiting bouts, not controlled with several antiemetics like Zofran, Reglan, Ativan and Benadryl and also he got more than 2 L of normal saline in the emergency room and he was admitted for hydration and control of symptoms On admission he is afebrile, blood pressure stable, labs showed leukocytosis of 18 K but no overt signs of infection, mostly reactive due to his symptoms We will increase Zofran to 8 mg every 8 hours and start scheduled Reglan , As well as IV hydration Glucose is noticed to be elevated 161, we'll check hemoglobin A1c throughout diabetes and gastric paresis Review of Systems CONSTITUTIONAL: No fever, no malaise, no fatigue. HEENT: No recent visual problems or hearing problems. Denied any sore throat. CARDIOVASCULAR: No orthopnea, PND, no palpitations, no syncope. PULMONARY: No shortness of breath, no cough, no hemoptysis. GASTROINTESTINAL: No diarrhea, Normoactive bowel sounds. NEUROLOGICAL: No headaches, no weakness, no numbness. HEMATOLOGICAL: Denies any bleeding or petechiae. GENITOURINARY: Denies any burning micturition, frequency, or urgency. MUSCULOSKELETAL/RHEUMATOLOGICAL: Denies any joint pain, swelling, or any muscle pain. ENDOCRINE: Denies any polyuria or polydipsia. 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 Smoking Status: Current every day smoker Past Alcohol Use History: None Reported Past Drug Use History: Marijuana Additional Drug Use History / Comment(s): Maijuana: 1.5 grams-3 grams daily. Normally less than 4 grams daily. - Past Family History Father Family Medical History: Diabetes Mellitus Additional Family Medical History / Comment(s): . Alcoholism. Mother History Unknown: Yes Additional Family Medical History / Comment(s): Hypoglycemia Medications and Allergies Home Medications Medication Instructions Recorded Confirmed Type Famotidine 20 mg PO HS 12/24/19 12/24/19 History Ondansetron [Zofran ODT] 8 mg PO Q12H PRN 12/24/19 12/24/19 History Pantoprazole Sodium [Protonix] 40 mg PO BID 12/24/19 12/24/19 History Allergies Allergy/AdvReac Type Severity Reaction Status Date / Time No Known Allergies Allergy Verified 12/24/19 15:34 Physical Exam Vitals: Vital Signs Temp Pulse Pulse Resp BP BP Pulse Ox 12/24/19 16:00 97.9 F 59 L 17 113/56 95 12/24/19 15:30 98.0 F 81 20 123/88 97 12/24/19 14:56 92 20 108/65 99 12/24/19 14:00 98 20 158/67 99 12/24/19 13:14 82 20 114/65 99 12/24/19 12:07 98.0 F 55 L 20 136/85 100 Intake and Output 12/24/19 12/24/19 12/24/19 06:59 14:59 22:59 Other: Voiding Method Toilet Weight 97.976 kg 97.976 kg -GENERAL: The patient is alert and oriented x3, in distress due to repeated vomiting. Well developed, well nourished. HEENT: Pupils are round and equally reacting to light. EOMI. No scleral icterus. No conjunctival pallor. Normocephalic, atraumatic. No pharyngeal erythema. No thyromegaly. CARDIOVASCULAR: S1 and S2 present. No murmurs, rubs, or gallops. PULMONARY: Chest is clear to auscultation, no wheezing or crackles. -ABDOMEN: Soft, mild epigastric tenderness on deep palpation with no rebound tenderness or guarding , nondistended, normoactive bowel sounds. No palpable organomegaly. MUSCULOSKELETAL: No joint swelling or deformity. EXTREMITIES: No cyanosis, clubbing, or pedal edema. NEUROLOGICAL: Gross neurological examination did not reveal any focal deficits. SKIN: No rashes. No petechiae Results CBC & Chem 7: 12/24/19 12:29 12/24/19 12:29 Labs: Abnormal Lab Results - Last 24 Hours (Table) 12/24/19 12/24/19 Range/Units 12:29 12:29 WBC 18.7 H (3.8-10.6) k/uL Neutrophils # 16.1 H (1.3-7.7) k/uL Carbon Dioxide 20 L (22-30) mmol/L Creatinine 0.61 L (0.66-1.25) mg/dL Glucose 161 H (74-99) mg/dL Thrombosis Risk Factor Assmnt - Choose All That Apply Any of the Below Risk Factors Present?: No Assessment and Plan Assessment: -Cyclic vomiting with multiple hospitalization for the same, could be related to marijuana cyclic vomiting, other less likely causes are viral infection with gastroenteritis, fluid presenting, food intolerance or irritable bowel syndrome, gastric paresis secondary to diabetes -Leukocytosis, mostly reactive -High glucose, check hemoglobin A1c and rule out diabetes mellitus -substance abuse including marijuana Plan: This is a pleasant 24 years old male who presents with cyclic vomiting. Continue with Zofran 8 mg as needed, Reglan scheduled dose, continue with D5 normal saline, follow-up leukocyte count, check hemoglobin A1c. Patient is counseled about quitting marijuana Labs and medication were reviewed.. Continue same treatment. Continue with symptomatic treatment. Resume home medication. Monitor lytes and vitals. DVT and GI prophylaxis. Further recommendations of the clinical course of the patient DVT prophylaxis: Subcutaneous heparin GI Prophylaxis: Pepcid
[2019-12-24] MEDS: METOCLOPRAMIDE 5 MG/ML 2 ML VIAL IVP SCH (20:06)
[2019-12-24] MEDS ORDERED: FAMOTIDINE 20 MG/2 ML VIAL IV SCH (21:00)
[2019-12-24] MEDS ORDERED: HEPARIN SODIUM,PORCINE 5,000 UNIT/ML 1 ML VIAL SQ SCH (21:00)
[2019-12-25] MEDS: METOCLOPRAMIDE 5 MG/ML 2 ML VIAL IVP SCH ×2 (00:18→05:42)
[2019-12-25 07:57] LABS: Basophils % (A) 0 %; Eosinophils # (A) 0.1 k/uL (0-0.7); Eosinophils % (A) 1 %; HCT 46.2 % (39.0-53.0); HGB 14.7 gm/dL (13.0-17.5); Lymphocytes # (A) 1.9 k/uL (1.0-4.8); Lymphocytes % (A) 17 %; MCH 31.7 pg (25.0-35.0); MCHC 31.9 g/dL (31.0-37.0); MCV 99.3 fL (80.0-100.0); Mean Platelet Volume 7.8; Monocytes # (A) 0.6 k/uL (0-1.0); Monocytes % (A) 6 %; Neutrophils # (A) 8.2 k/uL (1.3-7.7); Neutrophils % (A) 75 %; Platelet Count 221 k/uL (150-450); RBC 4.65 m/uL (4.30-5.90); RDW 12.5 % (11.5-15.5); WBC 10.9 k/uL (3.8-10.6)
[2019-12-25 09:09] VITALS: BP 125/87; PULSE 67; RESP 16; TEMP 98.1
--- NOTE | 2019-12-25 09:56 | P.DS ---
Providers Date of admission: 12/24/19 14:53 Attending physician: Brannon Ortega MD Primary care physician: Stated None Hospital Course: Patient signed leaving AMA. I got a call from the bedside nurse this morning the patient wants to be discharged otherwise he will leave AMA probably because he's feeling better. I came to see the patient within half an hour, however patient was already signed leaving AMA Based upon my evaluation patient has capacity to make medical decision Please refer to yesterday H&P note for more details Patient Condition at Discharge: Stable Plan - Discharge Summary Discharge Rx Participant: No New Discharge Prescriptions: No Action Ondansetron [Zofran ODT] 8 mg PO Q12H PRN PRN Reason: Nausea Famotidine 20 mg PO HS Pantoprazole Sodium [Protonix] 40 mg PO BID Discharge Medication List Famotidine 20 mg PO HS 12/24/19 [History] Ondansetron [Zofran ODT] 8 mg PO Q12H PRN 12/24/19 [History] Pantoprazole Sodium [Protonix] 40 mg PO BID 12/24/19 [History] Follow up Appointment(s)/Referral(s): None,Stated [Primary Care Provider] - 1-2 days Discharge Disposition: Left Against Medical Advice
[2019-12-25 19:57] LABS: Hemoglobin A1C 5.8 % (4.0-6.0)
== END 2019-12-25 09:17 | disposition left against medical advice (07) ==
LOC: EC 12:05 → 4SSUR 14:53
PROVIDERS: ADMIT Internal Medicine; ATTEND Internal Medicine
DX: R11.15 Cyclical vomiting syndrome unrelated to migraine (principal); R73.09 Other abnormal glucose; F12.10 Cannabis abuse, uncomplicated; K59.00 Constipation, unspecified; F17.200 Nicotine dependence, unspecified, uncomplicated; Z79.899 Other long term (current) drug therapy; Z53.29 Procedure and treatment not carried out because of patient's decision for other reasons; Z98.890 Other specified postprocedural states; Z87.2 Personal history of diseases of the skin and subcutaneous tissue; Z83.3 Family history of diabetes mellitus; Z81.1 Family history of alcohol abuse and dependence; Z84.89 Family history of other specified conditions
CPT/HCPCS: 96376 ×2; 96372; 96375 ×2; 96361; 96374; 99285; 36415; 80053; 85025 ×2; 83036; 87635; G0378 ×2; J2060; J1200; J1644; J2765 ×2; C9113

== ENCOUNTER 2020-01-04 13:46 | Emergency (ER) | payer OTHER ==
[2020-01-04] MEDS ORDERED: DICYCLOMINE 10 MG/ML 2 ML AMP IM STA (14:18)
[2020-01-04] MEDS ORDERED: SODIUM CHLORIDE 0.9% 1,000 ML IV STA (14:18)
[2020-01-04] MEDS ORDERED: LORazepam 2 MG/ML INJ IV STA (14:19)
[2020-01-04] MEDS ORDERED: PANTOPRAZOLE 40 MG/10 ML VIAL IVP STA (14:19)
[2020-01-04] MEDS ORDERED: HYDROmorphone 0.5 MG/0.5 ML SYRINGE IVP STA (14:20)
--- NOTE | 2020-01-04 14:23 | ED ---
General Adult HPI - General Chief complaint: Nausea/Vomiting/Diarrhea Stated complaint: Vomiting Time Seen by Provider: 01/04/20 13:55 Source: patient, EMS Mode of arrival: EMS Limitations: no limitations - History of Present Illness Initial comments: Patient is 24-year-old male with history of cyclic vomiting syndrome presenting to emergency Department with a chief complaint of nausea vomiting and abdominal pain. States the symptoms began this morning with multiple episodes of nonbilious and nonbloody vomiting. He states he is only dry heaving right now because there is nothing in his stomach. States there is diffuse abdominal cramping secondary to the vomiting. Does report smoking marijuana. Denies any chest pain or shortness of breath. States he has been to the ED multiple times with the similar symptoms. - Related Data Home Medications Medication Instructions Recorded Confirmed Famotidine 20 mg PO HS 12/24/19 01/04/20 Ondansetron [Zofran ODT] 8 mg PO Q12H PRN 12/24/19 01/04/20 Pantoprazole Sodium [Protonix] 40 mg PO BID 12/24/19 01/04/20 Previous Rx's Medication Instructions Recorded Ondansetron Odt [Zofran Odt] 4 mg PO Q8HR PRN #20 tab 01/04/20 Allergies Allergy/AdvReac Type Severity Reaction Status Date / Time No Known Allergies Allergy Verified 01/04/20 14:12 Review of Systems ROS Statement: Those systems with pertinent positive or pertinent negative responses have been documented in the HPI. ROS Other: All systems not noted in ROS Statement are negative. Past Medical History Past Medical History: No Reported History Additional Past Medical History / Comment(s): Cyclic vomiting syndrome History of Any Multi-Drug Resistant Organisms: None Reported Past Surgical History: No Surgical Hx Reported Additional Past Surgical History / Comment(s): Stitches, plantar wart removed Past Anesthesia/Blood Transfusion Reactions: No Reported Reaction Past Psychological History: No Psychological Hx Reported Smoking Status: Current every day smoker Past Alcohol Use History: None Reported Past Drug Use History: Marijuana - Past Family History Father Family Medical History: Diabetes Mellitus Additional Family Medical History / Comment(s): . Alcoholism. Mother History Unknown: Yes Additional Family Medical History / Comment(s): Hypoglycemia General Exam Limitations: no limitations General appearance: alert, in no apparent distress Head exam: Present: atraumatic, normocephalic, normal inspection Eye exam: Present: normal appearance, PERRL, EOMI Pupils: Present: normal accommodation ENT exam: Present: normal exam, normal oropharynx, mucous membranes dry Neck exam: Present: normal inspection, full ROM Respiratory exam: Present: normal lung sounds bilaterally. Absent: respiratory distress, wheezes Cardiovascular Exam: Present: regular rate, normal rhythm, normal heart sounds GI/Abdominal exam: Present: soft, tenderness (Epigastric). Absent: distended Extremities exam: Present: normal inspection, full ROM Back exam: Present: normal inspection, full ROM Neurological exam: Present: alert, oriented X3 Psychiatric exam: Present: normal affect, normal mood Skin exam: Present: warm, dry, intact, normal color Course Vital Signs 01/04/20 01/04/20 01/04/20 14:06 15:11 16:15 Temperature 98.9 F 98.3 F Pulse Rate 65 80 88 Respiratory 20 18 20 Rate Blood Pressure 123/56 121/65 151/68 O2 Sat by Pulse 99 99 98 Oximetry Medical Decision Making - Medical Decision Making Patient is a 24-year-old male with history of cyclic vomiting syndrome presenting to the emergency department with a chief complaint abdominal pain nausea vomiting. On exam patient has epigastric tenderness and continues to vomit while in the ED. Patient was given Zofran in the ambulance. Patient was given Ativan fluids and antiemetics and analgesia in the ED. Reevaluation patient reports improvement of symptoms and the vomiting and nausea since resolved. Advised to follow-up with his primary care. Also advised the patient to stop using marijuana considering that it will trigger his symptoms. Return parameters thoroughly discussed with patient is understanding and agreeable. Case discussed with physician. - Lab Data Result diagrams: 01/04/20 14:45 01/04/20 14:45 Lab Results 01/04/20 01/04/20 Range/Units 14:45 14:45 WBC 17.2 H (3.8-10.6) k/uL RBC 5.07 (4.30-5.90) m/uL Hgb 16.0 (13.0-17.5) gm/dL Hct 48.3 (39.0-53.0) % MCV 95.3 (80.0-100.0) fL MCH 31.5 (25.0-35.0) pg MCHC 33.1 (31.0-37.0) g/dL RDW 12.4 (11.5-15.5) % Plt Count 262 (150-450) k/uL Neutrophils % 93 % Lymphocytes % 4 % Monocytes % 2 % Eosinophils % 0 % Basophils % 0 % Neutrophils # 15.9 H (1.3-7.7) k/uL Lymphocytes # 0.8 L (1.0-4.8) k/uL Monocytes # 0.4 (0-1.0) k/uL Eosinophils # 0.0 (0-0.7) k/uL Basophils # 0.0 (0-0.2) k/uL Sodium 138 (137-145) mmol/L Potassium 4.0 (3.5-5.1) mmol/L Chloride 105 (98-107) mmol/L Carbon Dioxide 21 L (22-30) mmol/L Anion Gap 12 mmol/L BUN 20 (9-20) mg/dL Creatinine 0.62 L (0.66-1.25) mg/dL Est GFR (CKD-EPI)AfAm >90 (>60 ml/min/1.73 sqM) Est GFR (CKD-EPI)NonAf >90 (>60 ml/min/1.73 sqM) Glucose 164 H (74-99) mg/dL Calcium 9.7 (8.4-10.2) mg/dL Total Bilirubin 0.9 (0.2-1.3) mg/dL AST 25 (17-59) U/L ALT 23 (4-49) U/L Alkaline Phosphatase 41 (38-126) U/L Total Protein 8.2 (6.3-8.2) g/dL Albumin 5.1 H (3.5-5.0) g/dL Amylase 57 (30-110) U/L Lipase 31 (23-300) U/L Disposition Clinical Impression: Nausea & vomiting, Abdominal pain Disposition: HOME SELF-CARE Condition: Good Instructions (If sedation given, give patient instructions): Abdominal Pain (ED) Additional Instructions: Take prescribed medication as directed. Follow up with her primary care. Return to emergency department if symptoms worsen. Prescriptions: Ondansetron Odt [Zofran Odt] 4 mg PO Q8HR PRN #20 tab PRN Reason: Nausea Is patient prescribed a controlled substance at d/c from ED?: No Referrals: None,Stated [Primary Care Provider] - 1-2 days Time of Disposition: 15:51
[2020-01-04] MEDS ORDERED: METOCLOPRAMIDE 5 MG/ML 2 ML VIAL IVP STA (14:30)
[2020-01-04] MEDS ORDERED: diphenhydrAMINE 50 MG/ML 1 ML VIAL IVP STA (14:30)
[2020-01-04 14:56] LABS: Basophils % (A) 0 %; Eosinophils % (A) 0 %; HCT 48.3 % (39.0-53.0); Lymphocytes # (A) 0.8 k/uL (1.0-4.8); Lymphocytes % (A) 4 %; MCH 31.5 pg (25.0-35.0); MCHC 33.1 g/dL (31.0-37.0); MCV 95.3 fL (80.0-100.0); Mean Platelet Volume 8.2; Monocytes # (A) 0.4 k/uL (0-1.0); Monocytes % (A) 2 %; Neutrophils # (A) 15.9 k/uL (1.3-7.7); Neutrophils % (A) 93 %; Platelet Count 262 k/uL (150-450); RBC 5.07 m/uL (4.30-5.90); RDW 12.4 % (11.5-15.5); WBC 17.2 k/uL (3.8-10.6)
[2020-01-04 15:05] LABS: ALT 23 U/L (4-49); AST 25 U/L (17-59); African American GFR (CKD) >90 (>60 ml/min/1.73 sqM); Albumin 5.1 g/dL (3.5-5.0); Alkaline Phosphatase 41 U/L (38-126); Amylase 57 U/L (30-110); Anion Gap 12 mmol/L; Blood Urea Nitrogen 20 mg/dL (9-20); Calcium 9.7 mg/dL (8.4-10.2); Carbon Dioxide 21 mmol/L (22-30); Chloride 105 mmol/L (98-107); Glucose 164 mg/dL (74-99); Non-African American GFR(CKD) >90 (>60 ml/min/1.73 sqM); Sodium 138 mmol/L (137-145); Total Bilirubin 0.9 mg/dL (0.2-1.3); Total Protein 8.2 g/dL (6.3-8.2)
[2020-01-04 16:48] VITALS: BP 151/68; PULSE 88; RESP 20; TEMP 98.3
== END 2020-01-04 16:15 | disposition home or self-care (01) ==
LOC: EC 13:46
DX: R11.2 Nausea with vomiting, unspecified (principal); R10.9 Unspecified abdominal pain; F12.90 Cannabis use, unspecified, uncomplicated; F17.200 Nicotine dependence, unspecified, uncomplicated; Z79.899 Other long term (current) drug therapy; Z87.19 Personal history of other diseases of the digestive system
CPT/HCPCS: 36415; 80053; 82150; 83690; 85025; 99284; 96374; 96375 ×4; 96372; 96361; J2060; J1200; J0500; J2765; C9113; J1170

== ENCOUNTER 2020-01-06 08:20 | Emergency (ER) | payer OTHER ==
[2020-01-06 08:35] VITALS: RESP 20; TEMP 98.5
[2020-01-06] MEDS ORDERED: LORazepam 2 MG/ML INJ IV STA ×2 (08:48→11:50)
[2020-01-06] MEDS ORDERED: diphenhydrAMINE 50 MG/ML 1 ML VIAL IVP STA ×2 (08:48→11:00)
[2020-01-06] MEDS ORDERED: PROMETHAZINE INJ 25 MG in SODIUM CHLORIDE 0.9% 50 ML IVPB STA (08:48)
[2020-01-06] MEDS ORDERED: SODIUM CHLORIDE 0.9% 2,000 ML IV STA (08:48)
[2020-01-06] MEDS ORDERED: FAMOTIDINE 20 MG/2 ML VIAL IV STA (08:49)
[2020-01-06 09:43] LABS: Basophils % (A) 0 %; Eosinophils # (A) 0.1 k/uL (0-0.7); Eosinophils % (A) 0 %; HCT 47.4 % (39.0-53.0); HGB 15.7 gm/dL (13.0-17.5); Lymphocytes # (A) 1.8 k/uL (1.0-4.8); Lymphocytes % (A) 10 %; MCH 31.4 pg (25.0-35.0); MCV 94.9 fL (80.0-100.0); Mean Platelet Volume 7.9; Monocytes # (A) 0.7 k/uL (0-1.0); Monocytes % (A) 4 %; Neutrophils # (A) 15.4 k/uL (1.3-7.7); Neutrophils % (A) 85 %; Platelet Count 253 k/uL (150-450); RDW 12.4 % (11.5-15.5)
--- NOTE | 2020-01-06 09:46 | ED ---
Nausea/Vomiting/Diarrhea HPI - General Chief complaint: Nausea/Vomiting/Diarrhea Stated complaint: Abd pain, nausea Time Seen by Provider: 01/06/20 08:29 Source: patient, EMS, RN notes reviewed Mode of arrival: EMS Limitations: no limitations - History of Present Illness Initial comments: This a 24-year-old male presents emergency department to complaint of nausea vomiting. States it started yesterday. Patient states that it's he has this recurrent issue related to cyclic vomiting syndrome. He does admit to daily marijuana use. Patient states that he is scheduled for an EGD but has not had this completed. He's had hospitalizations for this. Patient said no relief with home medications. Patient denies any fevers or chills no localized abdo tami pain no chest pain or shortness breath. Patient offers no other complaints. - Related Data Home Medications Medication Instructions Recorded Confirmed Famotidine 20 mg PO HS 12/24/19 01/04/20 Ondansetron [Zofran ODT] 8 mg PO Q12H PRN 12/24/19 01/04/20 Pantoprazole Sodium [Protonix] 40 mg PO BID 12/24/19 01/04/20 Previous Rx's Medication Instructions Recorded Ondansetron Odt [Zofran Odt] 4 mg PO Q8HR PRN #20 tab 01/04/20 Promethazine Suppository 25 mg RECTAL QID #10 supp 01/06/20 [Phenergan] Allergies Allergy/AdvReac Type Severity Reaction Status Date / Time No Known Allergies Allergy Verified 01/04/20 14:12 Review of Systems ROS Statement: Those systems with pertinent positive or pertinent negative responses have been documented in the HPI. ROS Other: All systems not noted in ROS Statement are negative. Past Medical History Past Medical History: No Reported History Additional Past Medical History / Comment(s): Cyclic vomiting syndrome History of Any Multi-Drug Resistant Organisms: None Reported Past Surgical History: No Surgical Hx Reported Additional Past Surgical History / Comment(s): Stitches, plantar wart removed Past Anesthesia/Blood Transfusion Reactions: No Reported Reaction Past Psychological History: No Psychological Hx Reported Smoking Status: Current every day smoker Past Alcohol Use History: None Reported Past Drug Use History: Marijuana - Past Family History Father Family Medical History: Diabetes Mellitus Additional Family Medical History / Comment(s): . Alcoholism. Mother History Unknown: Yes Additional Family Medical History / Comment(s): Hypoglycemia General Exam Limitations: no limitations General appearance: alert, in no apparent distress Head exam: Present: atraumatic, normocephalic, normal inspection Eye exam: Present: normal appearance, PERRL, EOMI. Absent: scleral icterus, conjunctival injection, periorbital swelling ENT exam: Present: normal exam, normal oropharynx, mucous membranes moist Neck exam: Present: normal inspection, full ROM. Absent: tenderness, meningismus, lymphadenopathy Respiratory exam: Present: normal lung sounds bilaterally. Absent: respiratory distress, wheezes, rales, rhonchi, stridor Cardiovascular Exam: Present: regular rate, normal rhythm, normal heart sounds. Absent: systolic murmur, diastolic murmur, rubs, gallop, clicks GI/Abdominal exam: Present: soft, tenderness (Mild diffuse), normal bowel sounds. Absent: distended, guarding, rebound, rigid Back exam: Absent: CVA tenderness (R), CVA tenderness (L) Neurological exam: Present: alert, oriented X3, CN II-XII intact Skin exam: Present: warm, dry, intact, normal color. Absent: rash Course Vital Signs 01/06/20 01/06/20 01/06/20 08:26 08:34 09:34 Temperature 98.5 F Pulse Rate 65 66 Respiratory 20 20 20 Rate Blood Pressure 129/71 129/71 O2 Sat by Pulse 100 100 Oximetry 01/06/20 01/06/20 10:00 11:00 Temperature Pulse Rate 62 Respiratory 20 20 Rate Blood Pressure 138/98 O2 Sat by Pulse 100 100 Oximetry - Reevaluation(s) Reevaluation #1: 01/06/20 11:49 Patient's updated on results. Patient states that he does not want to discontinue marijuana use. Patient is given antiemetics he had a few bouts of emesis emergency department. Patient was able to tolerate GI cocktail. Patient will be discharged. Medical Decision Making - Medical Decision Making Patient is a 24-year-old male presents emergency department for nausea vomiting patient has history of cyclic vomiting most likely related to marijuana use. Patient states that he will not discontinue marijuana use. Patient was given antiemetics will be discharged in stable condition. - Lab Data Result diagrams: 01/06/20 09:29 01/06/20 09:29 Lab Results 01/06/20 01/06/20 01/06/20 Range/Units 09: 09:29 10:13 WBC 18.0 H (3.8-10.6) k/uL RBC 5.00 (4.30-5.90) m/uL Hgb 15.7 (13.0-17.5) gm/dL Hct 47.4 (39.0-53.0) % MCV 94.9 (80.0-100.0) fL MCH 31.4 (25.0-35.0) pg MCHC 33.0 (31.0-37.0) g/dL RDW 12.4 (11.5-15.5) % Plt Count 253 (150-450) k/uL Neutrophils % 85 % Lymphocytes % 10 % Monocytes % 4 % Eosinophils % 0 % Basophils % 0 % Neutrophils # 15.4 H (1.3-7.7) k/uL Lymphocytes # 1.8 (1.0-4.8) k/uL Monocytes # 0.7 (0-1.0) k/uL Eosinophils # 0.1 (0-0.7) k/uL Basophils # 0.0 (0-0.2) k/uL Sodium 137 (137-145) mmol/L Potassium 3.7 (3.5-5.1) mmol/L Chloride 105 (98-107) mmol/L Carbon Dioxide 22 (22-30) mmol/L Anion Gap 10 mmol/L BUN 16 (9-20) mg/dL Creatinine 0.67 (0.66-1.25) mg/dL Est GFR (CKD-EPI)AfAm >90 (>60 ml/min/1.73 sqM) Est GFR (CKD-EPI)NonAf >90 (>60 ml/min/1.73 sqM) Glucose 145 H (74-99) mg/dL Calcium 9.3 (8.4-10.2) mg/dL Total Bilirubin 1.7 H (0.2-1.3) mg/dL AST 30 (17-59) U/L ALT 24 (4-49) U/L Alkaline Phosphatase 39 (38-126) U/L Total Protein 7.9 (6.3-8.2) g/dL Albumin 4.9 (3.5-5.0) g/dL Lipase 67 (23-300) U/L Urine Opiates Screen Not Detected (NotDetected) Ur Oxycodone Screen Not Detected (NotDetected) Urine Methadone Screen Not Detected (NotDetected) Ur Propoxyphene Screen Not Detected (NotDetected) Ur Barbiturates Screen Not Detected (NotDetected) U Tricyclic Antidepress Not Detected (NotDetected) Ur Phencyclidine Scrn Not Detected (NotDetected) Ur Amphetamines Screen Not Detected (NotDetected) U Methamphetamines Scrn Not Detected (NotDetected) U Benzodiazepines Scrn Not Detected (NotDetected) Urine Cocaine Screen Not Detected (NotDetected) U Marijuana (THC) Screen Detected H (NotDetected) Disposition Clinical Impression: Cyclical vomiting, Marijuana use Disposition: HOME SELF-CARE Condition: Stable Instructions (If sedation given, give patient instructions): Acute Nausea and Vomiting (ED) Additional Instructions: Please return to the Emergency Department if symptoms worsen or any other concerns. Prescriptions: Promethazine Suppository [Phenergan] 25 mg RECTAL QID #10 supp Is patient prescribed a controlled substance at d/c from ED?: No Referrals: None,Stated [Primary Care Provider] - 1-2 days Kim Llanes MD [STAFF PHYSICIAN] - 1-2 days Time of Disposition: 11:51
[2020-01-06 09:52] LABS: ALT 24 U/L (4-49); AST 30 U/L (17-59); African American GFR (CKD) >90 (>60 ml/min/1.73 sqM); Albumin 4.9 g/dL (3.5-5.0); Alkaline Phosphatase 39 U/L (38-126); Anion Gap 10 mmol/L; Blood Urea Nitrogen 16 mg/dL (9-20); Calcium 9.3 mg/dL (8.4-10.2); Carbon Dioxide 22 mmol/L (22-30); Chloride 105 mmol/L (98-107); Glucose 145 mg/dL (74-99); Non-African American GFR(CKD) >90 (>60 ml/min/1.73 sqM); Potassium 3.7 mmol/L (3.5-5.1); Sodium 137 mmol/L (137-145); Total Bilirubin 1.7 mg/dL (0.2-1.3); Total Protein 7.9 g/dL (6.3-8.2)
[2020-01-06] MEDS ORDERED: MAG HYDROX/AL HYDROX/SIMETH 30 ML, HYOSCYAMINE ELIXIR 10 ML, LIDOCAINE VISCOUS 2% 10 ML PO STA ×3 (11:00)
[2020-01-06 11:16] LABS: Amorphous Sediment,Urine Rare /hpf; Appearance,Urine Cloudy (Clear); Bilirubin,Urine Negative (Negative); Blood,Urine Negative (Negative); Calcium Oxalate Crystals,Urine Rare /hpf; Color,Urine Light Yellow; Glucose,Urine (UA) Negative (Negative); Ketones,Urine 2+ (Negative); Leukocyte Esterase,Urine Negative (Negative); Mucus,Urine Rare /hpf; Nitrite,Urine Negative (Negative); PH, Urine 7.5 (5.0-8.0); Protein,Urine Negative (Negative); RBC,Urine <1 /hpf (0-5); Specific Gravity,Urine 1.014 (1.001-1.035); Urobilinogen,Urine <2.0 mg/dL (<2.0); WBC,Urine 1 /hpf (0-5)
[2020-01-06 11:33] LABS: Amphetamine Screen,Urine Not Detected (NotDetected); Barbiturate Screen,Urine Not Detected (NotDetected); Benzodiazepines Screen,Urine Not Detected (NotDetected); Cocaine Screen,Urine Not Detected (NotDetected); Methadone Screen, Urine Not Detected (NotDetected); Opiate Screen,Urine Not Detected (NotDetected); Oxycodone Screen, Urine Not Detected (NotDetected); Phencyclidine Screen,Urine Not Detected (NotDetected); Tricyclic Antidepressant,Urine Not Detected (NotDetected); Urn Cannabinoid Scrn Detected (NotDetected)
[2020-01-06] MEDS ORDERED: METOCLOPRAMIDE 5 MG/ML 2 ML VIAL IVP STA (11:50)
[2020-01-06 12:37] VITALS: BP 127/84; PULSE 71
== END 2020-01-06 12:56 | disposition home or self-care (01) ==
LOC: EC 08:20
DX: R11.15 Cyclical vomiting syndrome unrelated to migraine (principal); F12.90 Cannabis use, unspecified, uncomplicated; F17.200 Nicotine dependence, unspecified, uncomplicated; Z79.899 Other long term (current) drug therapy
CPT/HCPCS: 36415; 80053; 80306; 81001; 83690; 85025; 96361; 96365; 96375; 96376; 99284

== ENCOUNTER 2020-02-27 00:49 | Emergency (ER) | payer OTHER ==
[2020-02-27] MEDS ORDERED: SODIUM CHLORIDE 0.9% 1,000 ML IV STA (01:04)
[2020-02-27] MEDS ORDERED: HYDROmorphone 1 MG/ML 1 ML SYRINGE IVP STA (01:04)
[2020-02-27] MEDS ORDERED: LORazepam 2 MG/ML INJ IV STA (01:04)
[2020-02-27] MEDS ORDERED: SODIUM CHLORIDE 0.9% 500 ML 500 ML IV STA (01:04)
[2020-02-27] MEDS ORDERED: FAMOTIDINE 20 MG/2 ML VIAL IV STA (01:04)
[2020-02-27] MEDS ORDERED: ONDANSETRON 4 MG/2 ML VIAL IVP STA (01:04)
[2020-02-27 01:17] LABS: Basophils % (A) 0 %; Eosinophils # (A) 0.1 k/uL (0-0.7); Eosinophils % (A) 1 %; HCT 45.3 % (39.0-53.0); HGB 15.1 gm/dL (13.0-17.5); Lymphocytes # (A) 0.8 k/uL (1.0-4.8); Lymphocytes % (A) 5 %; MCH 31.3 pg (25.0-35.0); MCHC 33.3 g/dL (31.0-37.0); MCV 93.9 fL (80.0-100.0); Mean Platelet Volume 8.2; Monocytes # (A) 0.6 k/uL (0-1.0); Monocytes % (A) 4 %; Neutrophils # (A) 13.7 k/uL (1.3-7.7); Neutrophils % (A) 90 %; Platelet Count 245 k/uL (150-450); RBC 4.82 m/uL (4.30-5.90); RDW 12.2 % (11.5-15.5); WBC 15.2 k/uL (3.8-10.6)
[2020-02-27 01:26] LABS: ALT 17 U/L (4-49); AST 25 U/L (17-59); African American GFR (CKD) >90 (>60 ml/min/1.73 sqM); Albumin 5.5 g/dL (3.5-5.0); Alkaline Phosphatase 37 U/L (38-126); Amylase 60 U/L (30-110); Anion Gap 17 mmol/L; Blood Urea Nitrogen 16 mg/dL (9-20); Calcium 10.2 mg/dL (8.4-10.2); Carbon Dioxide 21 mmol/L (22-30); Chloride 99 mmol/L (98-107); Glucose 134 mg/dL (74-99); Non-African American GFR(CKD) >90 (>60 ml/min/1.73 sqM); Sodium 137 mmol/L (137-145); Total Bilirubin 1.4 mg/dL (0.2-1.3); Total Protein 8.5 g/dL (6.3-8.2)
[2020-02-27 01:32] VITALS: RESP 18
[2020-02-27] MEDS ORDERED: SODIUM CHLORIDE 0.9% 500 ML 500 ML IV ONE (02:06)
--- NOTE | 2020-02-27 02:27 | ED ---
General Adult HPI - General Chief complaint: Abdominal Pain Stated complaint: Vomiting Time Seen by Provider: 02/27/20 00:52 Source: patient, EMS Mode of arrival: EMS Limitations: no limitations - History of Present Illness Initial comments: 24 year-old male patient with past medical history significant for cyclic vomiting syndrome presents to the emergency department today for evaluation of upper abdominal pain and vomiting. Patient states he has been vomiting since 6:00 yesterday morning. States he has been unable to keep down any food or fluids. He denies any fever or chills. Denies any previous abdominal surgery. She does admit to smoking marijuana. He states that he has had cyclic vomiting syndrome for the last 2 years. He refuses to quit smoking marijuana. He is unable to take medications at home due to the vomiting. Patient denies any recent rash, cough, shortness of breath, chest pain, diarrhea, constipation, back pain, numbness, tingling, dizziness, weakness, hematuria, dysuria, urinary urgency, urinary frequency, headache, visual changes, or any other complaints. - Related Data Home Medications Medication Instructions Recorded Confirmed Famotidine 20 mg PO HS 12/24/19 01/04/20 Ondansetron [Zofran ODT] 8 mg PO Q12H PRN 12/24/19 01/04/20 Pantoprazole Sodium [Protonix] 40 mg PO BID 12/24/19 01/04/20 Previous Rx's Medication Instructions Recorded Ondansetron Odt [Zofran Odt] 4 mg PO Q8HR PRN #20 tab 01/04/20 Promethazine Suppository 25 mg RECTAL QID #10 supp 01/06/20 [Phenergan] Allergies Allergy/AdvReac Type Severity Reaction Status Date / Time No Known Allergies Allergy Verified 01/04/20 14:12 Review of Systems ROS Statement: Those systems with pertinent positive or pertinent negative responses have been documented in the HPI. ROS Other: All systems not noted in ROS Statement are negative. Past Medical History Past Medical History: No Reported History Additional Past Medical History / Comment(s): Cyclic vomiting syndrome History of Any Multi-Drug Resistant Organisms: None Reported Past Surgical History: No Surgical Hx Reported Additional Past Surgical History / Comment(s): Stitches, plantar wart removed Past Anesthesia/Blood Transfusion Reactions: No Reported Reaction Past Psychological History: No Psychological Hx Reported Past Alcohol Use History: None Reported Past Drug Use History: Marijuana - Past Family History Father Family Medical History: Diabetes Mellitus Additional Family Medical History / Comment(s): . Alcoholism. Mother History Unknown: Yes Additional Family Medical History / Comment(s): Hypoglycemia General Exam Limitations: no limitations General appearance: alert, in no apparent distress, other (This is a well- developed, well-nourished adult male patient in no acute distress. Vital signs upon presentation are temperature 99.2F, pulse 87, respirations 22, blood pressure 114/80, pulse ox 97% on room air.) Eye exam: Present: normal appearance, PERRL, EOMI. Absent: scleral icterus, conjunctival injection, periorbital swelling ENT exam: Present: normal exam, normal oropharynx, mucous membranes moist Respiratory exam: Present: normal lung sounds bilaterally. Absent: respiratory distress, wheezes, rales, rhonchi, stridor Cardiovascular Exam: Present: regular rate, normal rhythm, normal heart sounds. Absent: systolic murmur, diastolic murmur, rubs, gallop, clicks GI/Abdominal exam: Present: soft, tenderness (Midepigastric tenderness), normal bowel sounds. Absent: distended, guarding, rebound, rigid Neurological exam: Present: alert, oriented X3, CN II-XII intact Psychiatric exam: Present: normal affect, normal mood Skin exam: Present: warm, dry, intact, normal color. Absent: rash Course Vital Signs 02/27/20 02/27/20 00:50 01:31 Temperature 99.2 F 98.4 F Pulse Rate 87 83 Respiratory 22 18 Rate Blood Pressure 114/88 120/75 O2 Sat by Pulse 97 97 Oximetry Medical Decision Making - Medical Decision Making 24 year-old male patient with history of cyclic vomiting presents to the emergency department today for evaluation of upper abdominal pain and vomiting throughout the day today. Physical examination did reveal midepigastric tenderness. Patient does admit to smoking marijuana on a daily basis, we discussed this is a possible cause of his cyclic vomiting syndrome he states that he will not stop smoking. Labs reviewed and reveal elevated white blood cell, likely reactive from vomiting. He was given IV fluids, nausea medication, GI cocktail. He has not had any further episodes of vomiting in the emergency department so he will be discharged home to follow-up with his primary care p hysician for recheck in 1-2 days. Return parameters were discussed in detail. He verbalizes understanding and agrees this plan. - Lab Data Result diagrams: 02/27/20 01:09 02/27/20 01:09 Lab Results 02/27/20 02/27/20 02/27/20 Range/Units 01:09 01:09 01:09 WBC 15.2 H (3.8-10.6) k/uL RBC 4.82 (4.30-5.90) m/uL Hgb 15.1 (13.0-17.5) gm/dL Hct 45.3 (39.0-53.0) % MCV 93.9 (80.0-100.0) fL MCH 31.3 (25.0-35.0) pg MCHC 33.3 (31.0-37.0) g/dL RDW 12.2 (11.5-15.5) % Plt Count 245 (150-450) k/uL Neutrophils % 90 % Lymphocytes % 5 % Monocytes % 4 % Eosinophils % 1 % Basophils % 0 % Neutrophils # 13.7 H (1.3-7.7) k/uL Lymphocytes # 0.8 L (1.0-4.8) k/uL Monocytes # 0.6 (0-1.0) k/uL Eosinophils # 0.1 (0-0.7) k/uL Basophils # 0.0 (0-0.2) k/uL Sodium 137 (137-145) mmol/L Potassium 4.0 (3.5-5.1) mmol/L Chloride 99 (98-107) mmol/L Carbon Dioxide 21 L (22-30) mmol/L Anion Gap 17 mmol/L BUN 16 (9-20) mg/dL Creatinine 0.74 (0.66-1.25) mg/dL Est GFR (CKD-EPI)AfAm >90 (>60 ml/min/1.73 sqM) Est GFR (CKD-EPI)NonAf >90 (>60 ml/min/1.73 sqM) Glucose 134 H (74-99) mg/dL Plasma Lactic Acid Rodger 2.2 H* (0.7-2.0) mmol/L Calcium 10.2 (8.4-10.2) mg/dL Total Bilirubin 1.4 H (0.2-1.3) mg/dL AST 25 (17-59) U/L ALT 17 (4-49) U/L Alkaline Phosphatase 37 L (38-126) U/L Total Protein 8.5 H (6.3-8.2) g/dL Albumin 5.5 H (3.5-5.0) g/dL Amylase 60 (30-110) U/L Lipase 32 (23-300) U/L Urine Color Urine Appearance (Clear) Urine pH (5.0-8.0) Ur Specific Wallace (1.001-1.035) Urine Protein (Negative) Urine Glucose (UA) (Negative) Urine Ketones (Negative) Urine Blood (Negative) Urine Nitrite (Negative) Urine Bilirubin (Negative) Urine Urobilinogen (<2.0) mg/dL Ur Leukocyte Esterase (Negative) Urine RBC (0-5) /hpf Urine WBC (0-5) /hpf Ur Squamous Epith Cells (0-4) /hpf Hyaline Casts (0-2) /lpf Urine Mucus (None) /hpf 02/26/ Range/Units 02:51 WBC (3.8-10.6) k/uL RBC (4.30-5.90) m/uL Hgb (13.0-17.5) gm/dL Hct (39.0-53.0) % MCV (80.0-100.0) fL MCH (25.0-35.0) pg MCHC (31.0-37.0) g/dL RDW (11.5-15.5) % Plt Count (150-450) k/uL Neutrophils % % Lymphocytes % % Monocytes % % Eosinophils % % Basophils % % Neutrophils # (1.3-7.7) k/uL Lymphocytes # (1.0-4.8) k/uL Monocytes # (0-1.0) k/uL Eosinophils # (0-0.7) k/uL Basophils # (0-0.2) k/uL Sodium (137-145) mmol/L Potassium (3.5-5.1) mmol/L Chloride (98-107) mmol/L Carbon Dioxide (22-30) mmol/L Anion Gap mmol/L BUN (9-20) mg/dL Creatinine (0.66-1.25) mg/dL Est GFR (CKD-EPI)AfAm (>60 ml/min/1.73 sqM) Est GFR (CKD-EPI)NonAf (>60 ml/min/1.73 sqM) Glucose (74-99) mg/dL Plasma Lactic Acid Rodger (0.7-2.0) mmol/L Calcium (8.4-10.2) mg/dL Total Bilirubin (0.2-1.3) mg/dL AST (17-59) U/L ALT (4-49) U/L Alkaline Phosphatase (38-126) U/L Total Protein (6.3-8.2) g/dL Albumin (3.5-5.0) g/dL Amylase (30-110) U/L Lipase (23-300) U/L Urine Color Yellow Urine Appearance Clear (Clear) Urine pH 6.5 (5.0-8.0) Ur Specific Wallace 1.034 (1.001-1.035) Urine Protein 3+ H (Negative) Urine Glucose (UA) Trace H (Negative) Urine Ketones 4+ H (Negative) Urine Blood Negative (Negative) Urine Nitrite Negative (Negative) Urine Bilirubin Negative (Negative) Urine Urobilinogen 2.0 (<2.0) mg/dL Ur Leukocyte Esterase Negative (Negative) Urine RBC 5 (0-5) /hpf Urine WBC 3 (0-5) /hpf Ur Squamous Epith Cells <1 (0-4) /hpf Hyaline Casts 1 (0-2) /lpf Urine Mucus Many H (None) /hpf Disposition Clinical Impression: Vomiting, Abdominal pain Disposition: HOME SELF-CARE Condition: Good Instructions (If sedation given, give patient instructions): Acute Nausea and Vomiting (ED), Abdominal Pain (ED) Additional Instructions: Start with clear liquid diet and advance as tolerated. Follow-up with your primary care physician for recheck in 1-2 days. Return to the emergency depart ment immediately for any new, worsening, or concerning symptoms. Is patient prescribed a controlled substance at d/c from ED?: No Referrals: None,Stated [Primary Care Provider] - 1-2 days Time of Disposition: 03:08
[2020-02-27] MEDS ORDERED: MAG HYDROX/AL HYDROX/SIMETH 30 ML, HYOSCYAMINE ELIXIR 10 ML, LIDOCAINE VISCOUS 2% 10 ML PO STA ×3 (02:56)
[2020-02-27 03:04] LABS: Appearance,Urine Clear (Clear); Bilirubin,Urine Negative (Negative); Blood,Urine Negative (Negative); Color,Urine Yellow; Glucose,Urine (UA) Trace (Negative); Hyaline Casts,Urine 1 /lpf (0-2); Ketones,Urine 4+ (Negative); Leukocyte Esterase,Urine Negative (Negative); Mucus,Urine Many /hpf; Nitrite,Urine Negative (Negative); PH, Urine 6.5 (5.0-8.0); Protein,Urine 3+ (Negative); RBC,Urine 5 /hpf (0-5); Specific Gravity,Urine 1.034 (1.001-1.035); Squamous Epithelial Cell,Urine <1 /hpf (0-4); WBC,Urine 3 /hpf (0-5)
[2020-02-27 03:40] VITALS: BP 115/74; PULSE 70; TEMP 98.3
== END 2020-02-27 03:39 | disposition home or self-care (01) ==
LOC: EC 00:49
DX: R10.10 Upper abdominal pain, unspecified (principal); R11.10 Vomiting, unspecified; Z79.899 Other long term (current) drug therapy
CPT/HCPCS: 36415; 80053; 82150; 83605; 83690; 85025; 81001; 99284; 96374; 96375 ×3; 96361 ×2; J2060; J2405; J1170

== ENCOUNTER 2020-02-28 10:57 | Observation (INO) | payer OTHER ==
[2020-02-28] MEDS ORDERED: LORazepam 2 MG/ML INJ IV STA (11:17)
[2020-02-28] MEDS ORDERED: SODIUM CHLORIDE 0.9% 1,000 ML IV ONE (11:17)
[2020-02-28] MEDS ORDERED: diphenhydrAMINE 50 MG/ML 1 ML VIAL IVP STA (11:18)
[2020-02-28] MEDS ORDERED: METOCLOPRAMIDE 5 MG/ML 2 ML VIAL IVP STA (11:19)
--- NOTE | 2020-02-28 11:22 | ED ---
Nausea/Vomiting/Diarrhea HPI - General Source: EMS Mode of arrival: EMS Limitations: no limitations <Jaquelin Rodas - Last Filed: 02/28/20 12:53> <Jose Powell - Last Filed: 02/28/20 13:48> - General Chief complaint: Nausea/Vomiting/Diarrhea Stated complaint: Nausea, vomiting Time Seen by Provider: 02/28/20 10:57 - History of Present Illness Initial comments: 24-year-old male presented for chief complaint of continued vomiting, syncope. Patient states that he has had episodes where he has persistent vomiting that has been ongoing for 3 days he states he has an aortic been able to keep anything down. He states his symptoms were somewhat controlled in the emergency department yesterday and he was discharged home he felt a little better however her symptoms returned and have been persistent. Patient states that this morning he passed out. Denies hitting head or injury to neck. Denies chest pain or SOB. But states he believes he is dehydrated. Patient has no additional complaints, he denies fevers, blood in vomit or diarrhea> Denies dark or bloody stools. Patient actively vomiting on arrival. (Jaquelin Rodas) - Related Data Home Medications Medication Instructions Recorded Confirmed Pantoprazole Sodium [Protonix] 40 mg PO BID 12/24/19 02/28/20 Famotidine [Pepcid] 20 mg PO DAILY 02/28/20 02/28/20 Previous Rx's Medication Instructions Recorded Ondansetron Odt [Zofran Odt] 4 mg PO Q8HR PRN #20 tab 01/04/20 Ondansetron Odt [Zofran Odt] 4 mg PO Q8HR PRN 7 Days #21 tab 02/28/20 Allergies Allergy/AdvReac Type Severity Reaction Status Date / Time No Known Allergies Allergy Verified 02/28/20 11:21 Review of Systems ROS Other: All systems not noted in ROS Statement are negative. <Jaquelin Rodas - Last Filed: 02/28/20 12:53> ROS Other: All systems not noted in ROS Statement are negative. <Jose Powell - Last Filed: 02/28/20 13:48> ROS Statement: Those systems with pertinent positive or pertinent negative responses have been documented in the HPI. Past Medical History Past Medical History: No Reported History Additional Past Medical History / Comment(s): Cyclic vomiting syndrome History of Any Multi-Drug Resistant Organisms: None Reported Past Surgical History: No Surgical Hx Reported Additional Past Surgical History / Comment(s): Stitches, plantar wart removed Past Anesthesia/Blood Transfusion Reactions: No Reported Reaction Past Psychological History: No Psychological Hx Reported Past Alcohol Use History: None Reported Past Drug Use History: Marijuana - Past Family History Father Family Medical History: Diabetes Mellitus Additional Family Medical History / Comment(s): . Alcoholism. Mother History Unknown: Yes Additional Family Medical History / Comment(s): Hypoglycemia <Amy Rodaselen Sinclair - Last Filed: 02/28/20 12:53> General Exam Limitations: no limitations <GarlandkayleeAmyJaquelin L - Last Filed: 02/28/20 12:53> - General Exam Comments Initial Comments: General: The patient is awake and alert Eye: Pupils are equal, round and reactive to light, extra-ocular movements are intact. No nystagmus. There is normal conjunctiva bilaterally. No signs of icterus. Ears, nose, mouth and throat: There are moist mucous membranes and no oral lesions. Neck: The neck is supple, there is no tenderness or JVD. Cardiovascular: There is a regular rate and rhythm. No murmur, rub or gallop is appreciated. Respiratory: Lungs are clear to auscultation, respirations are non-labored, breath sounds are equal. No wheezes, stridor, rales, or rhonchi. Gastrointestinal: Soft, non-distended, mild diffuse tendernesss, no localized tenderness, abdomen without masses or organomegaly noted. There is no rebound or guarding present. acitvely vomiting Musculoskeletal: Normal ROM, no tenderness. Strength 5/5. Sensation intact. Radial pulses equal bilaterally 2+. Neurological: A&O x 3. CN II-XII intact, There are no obvious motor or sensory deficits. Coordination appears grossly intact. Speech is normal. Skin: Skin is warm and dry and no rashes or lesions are noted. Psychiatric: Cooperative (Amy Rodaselen Sinclair) Course <Amy Rodaselen Sinclair - Last Filed: 02/28/20 12:53> <Jose Powell - Last Filed: 02/28/20 13:48> Vital Signs 02/28/20 02/28/20 02/28/20 11:01 11:28 11:32 Temperature 98.7 F Pulse Rate 62 67 90 Respiratory 18 18 18 Rate Blood Pressure 142/78 148/83 148/82 O2 Sat by Pulse 98 98 98 Oximetry - Reevaluation(s) Reevaluation #1: 02/28/20 12:28 on re-evaluation patient sleeping, there is no active vomiting, appears well. (Jaquelin Rodas) Reevaluation #2: 02/28/20 13:47 PA supervision: I did personally evaluate this case patient does present with cleaned of persistent vomiting for past 3 days with a syncopal episode. He does have septal cyclical vomiting apparently he has a marijuana user. He is not improving in the emergency department. He will be admitted the case is discussed with Dr. Walter. (Jose Powell) Medical Decision Making - Lab Data Result diagrams: 02/28/20 11:12 02/28/20 11:12 <Jaquelin Rodas - Last Filed: 02/28/20 12:53> - Lab Data Result diagrams: 02/28/20 11:12 02/28/20 11:12 <Jose Powell - Last Filed: 02/28/20 13:48> - Medical Decision Making 24yo male with history of cyclic vomiting present to the ER for vomiting. Symptoms controlled the emergency department. Patient was out of Zofran outpatient. Given Reglan Ativan Benadryl. Patient resting comfortably. Patient's lips appear hydrated. Creatinine V1 within except for limits. Patient's white blood cell which is likely reactive is trending downward patient is no LOC localized abdominal pain pain does not appear severe. Patient describes this as typical to his previous episodes. EKG no acute findings. Discussed case with attending Dr. Powell including history of syncope, PMH, PE and labs which he reviewed. He recommend discharge with GI f/u. (Jaquelin Rodas) - Lab Data Lab Results 02/28/20 02/28/20 02/28/20 Range/Units 11:12 11:12 11:12 WBC 13.8 H (3.8-10.6) k/uL RBC 4.60 (4.30-5.90) m/uL Hgb 15.4 (13.0-17.5) gm/dL Hct 43.7 (39.0-53.0) % MCV 95.0 (80.0-100.0) fL MCH 33.5 (25.0-35.0) pg MCHC 35.3 (31.0-37.0) g/dL RDW 12.3 (11.5-15.5) % Plt Count 220 (150-450) k/uL Neutrophils % 83 % Lymphocytes % 12 % Monocytes % 4 % Eosinophils % 1 % Basophils % 0 % Neutrophils # 11.4 H (1.3-7.7) k/uL Lymphocytes # 1.6 (1.0-4.8) k/uL Monocytes # 0.5 (0-1.0) k/uL Eosinophils # 0.1 (0-0.7) k/uL Basophils # 0.0 (0-0.2) k/uL Sodium 138 (137-145) mmol/L Potassium 4.3 (3.5-5.1) mmol/L Chloride 105 (98-107) mmol/L Carbon Dioxide 22 (22-30) mmol/L Anion Gap 11 mmol/L BUN 16 (9-20) mg/dL Creatinine 0.75 (0.66-1.25) mg/dL Est GFR (CKD-EPI)AfAm >90 (>60 ml/min/1.73 sqM) Est GFR (CKD-EPI)NonAf >90 (>60 ml/min/1.73 sqM) Glucose 133 H (74-99) mg/dL Calcium 9.4 (8.4-10.2) mg/dL Total Bilirubin 1.6 H (0.2-1.3) mg/dL AST 39 (17-59) U/L ALT 17 (4-49) U/L Alkaline Phosphatase 25 L (38-126) U/L Total Protein 7.7 (6.3-8.2) g/dL Albumin 5.1 H (3.5-5.0) g/dL Lipase 51 (23-300) U/L Disposition Is patient prescribed a controlled substance at d/c from ED?: No Time of Disposition: 12:52 <Jaquelin Rodas - Last Filed: 02/28/20 12:53> <Jose Powell - Last Filed: 02/28/20 13:48> Clinical Impression: Nausea & vomiting, Syncope Disposition: HOME SELF-CARE Condition: Good Instructions (If sedation given, give patient instructions): Syncope (ED), Acute Nausea and Vomiting (ED) Additional Instructions: Please use medication as discussed. Please follow-up with family doctor in the next 2 days. Please return to emergency room if the symptoms increase or worsen or for any other concerns. Prescriptions: Ondansetron Odt [Zofran Odt] 4 mg PO Q8HR PRN 7 Days #21 tab PRN Reason: Nausea Referrals: None,Stated [Primary Care Provider] - 1-2 days [facility] Nitish cox [NON-STAFF] - 1-2 days Kim Llanes MD [STAFF PHYSICIAN] - 1-2 days
[2020-02-28] MEDS: SODIUM CHLORIDE 0.9% 1,000 ML IV SCH ×2 (11:27→21:25)
[2020-02-28 11:33] LABS: Basophils % (A) 0 %; Eosinophils # (A) 0.1 k/uL (0-0.7); Eosinophils % (A) 1 %; HCT 43.7 % (39.0-53.0); HGB 15.4 gm/dL (13.0-17.5); Lymphocytes # (A) 1.6 k/uL (1.0-4.8); Lymphocytes % (A) 12 %; MCH 33.5 pg (25.0-35.0); MCHC 35.3 g/dL (31.0-37.0); Mean Platelet Volume 8.3; Monocytes # (A) 0.5 k/uL (0-1.0); Monocytes % (A) 4 %; Neutrophils # (A) 11.4 k/uL (1.3-7.7); Neutrophils % (A) 83 %; Platelet Count 220 k/uL (150-450); RDW 12.3 % (11.5-15.5); WBC 13.8 k/uL (3.8-10.6)
[2020-02-28 11:42] LABS: ALT 17 U/L (4-49); AST 39 U/L (17-59); African American GFR (CKD) >90 (>60 ml/min/1.73 sqM); Albumin 5.1 g/dL (3.5-5.0); Alkaline Phosphatase 25 U/L (38-126); Anion Gap 11 mmol/L; Blood Urea Nitrogen 16 mg/dL (9-20); Calcium 9.4 mg/dL (8.4-10.2); Carbon Dioxide 22 mmol/L (22-30); Chloride 105 mmol/L (98-107); Glucose 133 mg/dL (74-99); Non-African American GFR(CKD) >90 (>60 ml/min/1.73 sqM); Sodium 138 mmol/L (137-145); Total Bilirubin 1.6 mg/dL (0.2-1.3); Total Protein 7.7 g/dL (6.3-8.2)
[2020-02-28 11:43] LABS: Potassium 4.3 mmol/L (3.5-5.1)
--- NOTE | 2020-02-28 12:27 | XR ---
EXAMINATION TYPE: XR chest 2V DATE OF EXAM: 02/28/2020 COMPARISON: Prior chest x-ray 09/28/2019 HISTORY: Syncope, chest pain TECHNIQUE: Frontal and lateral views of the chest are obtained. FINDINGS: There is no focal air space opacity, pleural effusion, or pneumothorax seen. The cardiac silhouette size is within normal limits. The osseous structures are intact. IMPRESSION: No acute cardiopulmonary process.
[2020-02-28] MEDS ORDERED: PANTOPRAZOLE 40 MG/10 ML VIAL IVP STA (13:50)
[2020-02-28] MEDS ORDERED: LORazepam 2 MG/ML INJ IV PRN (14:13)
[2020-02-28] MEDS ORDERED: NALOXONE 0.4 MG/ML 1 ML VIAL IV PRN (14:13)
[2020-02-28] MEDS ORDERED: ONDANSETRON 4 MG/2 ML VIAL IVP PRN (14:13)
[2020-02-28 14:54] VITALS: RESP 16
[2020-02-28 19:45] VITALS: BP 137/81; PULSE 56; TEMP 99
[2020-02-28] MEDS ORDERED: NICOTINE 14MG/24HR PATCH TRANSDERM STA (22:26)
--- NOTE | 2020-02-28 22:35 | HP ---
HISTORY AND PHYSICAL This patient is a 24-year-old white male admitted with symptoms of cyclic vomiting syndrome, nausea, vomiting, diarrhea, ongoing for 3 days. Discharged home. Feels a little better. Denies hitting his head or neck, chest pain or shortness of breath. He feels dehydrated. He has had this for 2 years intermittently, but it is now worsening. He was supposed to get an EGD by a GI doctor this week. So we will consult GI for possible EGD while he is in the hospital. He says the only thing that takes his nausea and vomiting away is some Zofran. ALLERGIES: NEGATIVE. REVIEW OF SYSTEMS: Fourteen-point review of systems negative except for mentioned in HPI. SOCIAL HISTORY: He does marijuana. 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 Otherwise plantar wart history. Otherwise negative. FAMILY HISTORY: Father with diabetes mellitus and alcoholism. Mother with hyperglycemia. PHYSICAL EXAMINATION: Alert and oriented x3. ENDOCRINE: BMI is over 40. CARDIOVASCULAR: S1, S2. LUNGS: Clear. GI is soft. Mild diffuse tenderness. No guarding. No rebound. MUSCULOSKELETAL: Range of motion full x4. PSYCH: Fair mood and affect. HEMATOLOGY: Negative Homans. SKIN: Warm and dry. VITAL SIGNS: Temperature 98.7, pulse 60 to 90, respiratory rate 16 to 18, blood pressure 140s over 80s, oxygen saturation 98%. ASSESSMENT: 1. Mild dehydration. 2. Cyclic vomiting syndrome. Possible EGD. Consult GI doctor for possibly EGD. Rehydrate. Give nausea medicines, Protonix, Zofran for nausea and vomiting. Please see further orders. MMODL / IJN: [id number] /
[2020-02-29 04:11] LABS: Hemoglobin A1C 5.2 % (4.0-6.0)
== END 2020-02-28 22:50 | disposition left against medical advice (07) ==
LOC: EC 10:57 → 1SOBS 13:47
PROVIDERS: ADMIT Family Medicine; ATTEND Family Medicine
DX: E86.0 Dehydration (principal); R11.15 Cyclical vomiting syndrome unrelated to migraine; R55 Syncope and collapse; Z03.818 Encounter for observation for suspected exposure to other biological agents ruled out; Z53.29 Procedure and treatment not carried out because of patient's decision for other reasons; Z79.899 Other long term (current) drug therapy; Z98.890 Other specified postprocedural states; Z86.19 Personal history of other infectious and parasitic diseases; Z83.3 Family history of diabetes mellitus; Z81.1 Family history of alcohol abuse and dependence; Z83.49 Family history of other endocrine, nutritional and metabolic diseases
CPT/HCPCS: 96361; 96374; 96375; 99285; 36415; 93005; 80053; 83690; 85025; 83036; 71046; G0378; U0003; J2060; J1200; J2765; C9113

== ENCOUNTER 2020-04-01 10:18 | Emergency (ER) | payer OTHER ==
[2020-04-01 10:26] VITALS: PULSE 70; TEMP 98.9
[2020-04-01] MEDS ORDERED: PANTOPRAZOLE 40 MG/10 ML VIAL IVP STA (10:32)
[2020-04-01] MEDS ORDERED: ONDANSETRON 4 MG/2 ML VIAL IVP STA (10:32)
[2020-04-01] MEDS ORDERED: SODIUM CHLORIDE 0.9% 1,000 ML IV STA (10:32)
--- NOTE | 2020-04-01 10:35 | ED ---
Nausea/Vomiting/Diarrhea HPI - General Chief complaint: Nausea/Vomiting/Diarrhea Stated complaint: NVD Time Seen by Provider: 04/01/20 10:22 Source: patient Mode of arrival: ambulatory Limitations: no limitations - History of Present Illness Initial comments: patient is a 24-year-old male, with history of cyclic vomiting, presenting to the emergency department via EMS with complaints of nausea and vomiting for the last 2 days. Patient states he ran out of his Protonix and Zofran and he was unable to control his vomiting. He states he has been seen Dr. Llanes for this. He denies any fever, chills, diarrhea. He does admit to generalized body cram ping, abdominal cramping but no specific area pain. he states he has not been able to eat anything in the last 2 days.He denies any chest pain or shortness of breath. Patient was given 4 mg by mouth Zofran in the EMS prior to arrival. He states his nausea has improved since that. He is not actively vomiting. Patient has no further complaints at this time. Upon arrival to the ER, his vital signs are stable. - Related Data Home Medications Medication Instructions Recorded Confirmed Famotidine [Pepcid] 20 mg PO HS 02/28/20 03/10/20 Previous Rx's Medication Instructions Recorded Ondansetron Odt [Zofran Odt] 4 mg PO Q8HR PRN 7 Days #21 tab 04/01/20 Pantoprazole Sodium [Protonix] 40 mg PO AC-BID #28 tab 04/01/20 Allergies Allergy/AdvReac Type Severity Reaction Status Date / Time No Known Allergies Allergy Verified 04/01/20 10:21 Review of Systems ROS Statement: Those systems with pertinent positive or pertinent negative responses have been documented in the HPI. ROS Other: All systems not noted in ROS Statement are negative. Past Medical History Past Medical History: No Reported History Additional Past Medical History / Comment(s): Cyclic vomiting syndrome History of Any Multi-Drug Resistant Organisms: None Reported Past Surgical History: No Surgical Hx Reported Additional Past Surgical History / Comment(s): Stitches, plantar wart removed Past Anesthesia/Blood Transfusion Reactions: No Reported Reaction Past Psychological History: PTSD Smoking Status: Current some day smoker Past Alcohol Use History: None Reported Past Drug Use History: Marijuana - Past Family History Father Family Medical History: Diabetes Mellitus Additional Family Medical History / Comment(s): . Alcoholism. Mother History Unknown: Yes Additional Family Medical History / Comment(s): Hypoglycemia General Exam - General Exam Comments Initial Comments: GENERAL: Patient is well-developed and well-nourished. Patient is nontoxic and in no acute distress, patient is not actively vomiting. HEAD: Atraumatic, normocephalic. EYES: Pupils equal round and reactive to light, extraocular movements intact, sclera anicteric, conjunctiva are normal. Eyelids were unremarkable. ENT: TMs normal, nares patent, oropharynx clear without exudates. Moist mucous membranes. NECK: Normal range of motion, supple without lymphadenopathy or JVD. LUNGS: Unlabored respirations. Breath sounds clear to auscultation bilaterally and equal. No wheezes rales or rhonchi. HEART: Regular rate and rhythm without murmurs, rubs or gallops. ABDOMEN: generalized discomfort with palpation, no specific area pain. Soft, normoactive bowel sounds. No guarding, no rebound. No masses appreciated. : Deferred MUSCULOSKELETAL: Normal extremities with adequate strength and normal range of motion, no pitting or edema. No clubbing or cyanosis. NEUROLOGICAL: Patient is alert and oriented x 3. Motor and sensory are also intact. Normal speech, normal gait. PSYCH: Normal mood, normal affect. SKIN: Warm, Dry, normal turgor, no rashes or lesions noted. Limitations: no limitations Course Vital Signs 04/01/20 10:21 Temperature 98.9 F Pulse Rate 70 Respiratory 18 Rate Blood Pressure 122/81 O2 Sat by Pulse 97 Oximetry Medical Decision Making - Medical Decision Making patient is a 24-year-old male, history surgical vomiting, presenting via EMS for nausea and vomiting 2 days. He was given 4mg of Zofranin the EMS prior to arrival. His vital signs are stable, he is not actively vomiting. His exam is unremarkable. Patient was given fluids, Protonix, additional Zofran. Labs show likely reactive leukocytosis at 16, dehydration, urine shows no evidence of infection, 4+ ketones. Patient was given nausea meds, liter and half of fluids. He has had no active vomiting in the ER. He has been resting comfortably. I did refill his proton next as well as Zofran. He is stable for discharge. Patient will follow up with Dr. Tumma. He is in agreement with this plan of care. Return parameters were discussed with the patient he verbalizes understanding. Case discussed Dr. Ochoa. - Lab Data Result diagrams: 04/01/20 10:39 04/01/20 10:39 Lab Results 04/01/20 04/01/20 04/01/20 Range/Units 10:39 10:39 12:04 WBC 16.5 H (3.8-10.6) k/uL RBC 5.06 (4.30-5.90) m/uL Hgb 16.1 (13.0-17.5) gm/dL Hct 47.3 (39.0-53.0) % MCV 93.5 (80.0-100.0) fL MCH 31.9 (25.0-35.0) pg MCHC 34.1 (31.0-37.0) g/dL RDW 12.3 (11.5-15.5) % Plt Count 270 (150-450) k/uL Neutrophils % 82 % Lymphocytes % 8 % Monocytes % 9 % Eosinophils % 0 % Basophils % 0 % Neutrophils # 13.5 H (1.3-7.7) k/uL Lymphocytes # 1.4 (1.0-4.8) k/uL Monocytes # 1.4 H (0-1.0) k/uL Eosinophils # 0.1 (0-0.7) k/uL Basophils # 0.0 (0-0.2) k/uL Sodium 140 (137-145) mmol/L Potassium 3.2 L (3.5-5.1) mmol/L Chloride 93 L (98-107) mmol/L Carbon Dioxide 30 (22-30) mmol/L Anion Gap 17 mmol/L BUN 27 H (9-20) mg/dL Creatinine 0.79 (0.66-1.25) mg/dL Est GFR (CKD-EPI)AfAm >90 (>60 ml/min/1.73 sqM) Est GFR (CKD-EPI)NonAf >90 (>60 ml/min/1.73 sqM) Glucose 122 H (74-99) mg/dL Calcium 10.0 (8.4-10.2) mg/dL Total Bilirubin 1.5 H (0.2-1.3) mg/dL AST 26 (17-59) U/L ALT 23 (4-49) U/L Alkaline Phosphatase 41 (38-126) U/L Total Protein 8.7 H (6.3-8.2) g/dL Albumin 5.5 H (3.5-5.0) g/dL Urine Color Yellow Urine Appearance Clear (Clear) Urine pH 8.5 H (5.0-8.0) Ur Specific Bruno 1.027 (1.001-1.035) Urine Protein 2+ H (Negative) Urine Glucose (UA) Negative (Negative) Urine Ketones 4+ H (Negative) Urine Blood Negative (Negative) Urine Nitrite Negative (Negative) Urine Bilirubin Negative (Negative) Urine Urobilinogen <2.0 (<2.0) mg/dL Ur Leukocyte Esterase Negative (Negative) Urine RBC 2 (0-5) /hpf Urine WBC 2 (0-5) /hpf Urine Mucus Few H (None) /hpf Disposition Clinical Impression: Cyclical vomiting, Dehydration, Nausea & vomiting Disposition: HOME SELF-CARE Condition: Stable Instructions (If sedation given, give patient instructions): Acute Nausea and Vomiting (ED) Additional Instructions: Please return to the Emergency Department if symptoms worsen or any other concerns. Take medication as prescribed. Follow-up with your GI doctor as discussed. Continue to increased water intake. Prescriptions: Pantoprazole Sodium [Protonix] 40 mg PO AC-BID #28 tab Ondansetron Odt [Zofran Odt] 4 mg PO Q8HR PRN 7 Days #21 tab PRN Reason: Nausea Is patient prescribed a controlled substance at d/c from ED?: No Referrals: None,Stated [Primary Care Provider] - 1-2 days Kim Llanes MD [STAFF PHYSICIAN] - 1-2 days
[2020-04-01 10:47] LABS: Basophils % (A) 0 %; Eosinophils # (A) 0.1 k/uL (0-0.7); Eosinophils % (A) 0 %; HCT 47.3 % (39.0-53.0); HGB 16.1 gm/dL (13.0-17.5); Lymphocytes # (A) 1.4 k/uL (1.0-4.8); Lymphocytes % (A) 8 %; MCH 31.9 pg (25.0-35.0); MCHC 34.1 g/dL (31.0-37.0); MCV 93.5 fL (80.0-100.0); Mean Platelet Volume 7.4; Monocytes # (A) 1.4 k/uL (0-1.0); Monocytes % (A) 9 %; Neutrophils # (A) 13.5 k/uL (1.3-7.7); Neutrophils % (A) 82 %; Platelet Count 270 k/uL (150-450); RBC 5.06 m/uL (4.30-5.90); RDW 12.3 % (11.5-15.5); WBC 16.5 k/uL (3.8-10.6)
[2020-04-01 11:14] LABS: ALT 23 U/L (4-49); AST 26 U/L (17-59); African American GFR (CKD) >90 (>60 ml/min/1.73 sqM); Albumin 5.5 g/dL (3.5-5.0); Alkaline Phosphatase 41 U/L (38-126); Anion Gap 17 mmol/L; Blood Urea Nitrogen 27 mg/dL (9-20); Carbon Dioxide 30 mmol/L (22-30); Chloride 93 mmol/L (98-107); Glucose 122 mg/dL (74-99); Non-African American GFR(CKD) >90 (>60 ml/min/1.73 sqM); Potassium 3.2 mmol/L (3.5-5.1); Sodium 140 mmol/L (137-145); Total Bilirubin 1.5 mg/dL (0.2-1.3); Total Protein 8.7 g/dL (6.3-8.2)
[2020-04-01] MEDS ORDERED: METOCLOPRAMIDE 5 MG/ML 2 ML VIAL IVP STA (12:32)
[2020-04-01] MEDS ORDERED: diphenhydrAMINE 50 MG/ML 1 ML VIAL IVP STA (12:32)
[2020-04-01] MEDS ORDERED: KETOROLAC 15 MG/ML 1 ML VIAL IVP STA (12:32)
[2020-04-01 12:33] LABS: Appearance,Urine Clear (Clear); Bilirubin,Urine Negative (Negative); Blood,Urine Negative (Negative); Color,Urine Yellow; Glucose,Urine (UA) Negative (Negative); Ketones,Urine 4+ (Negative); Leukocyte Esterase,Urine Negative (Negative); Mucus,Urine Few /hpf; Nitrite,Urine Negative (Negative); PH, Urine 8.5 (5.0-8.0); Protein,Urine 2+ (Negative); RBC,Urine 2 /hpf (0-5); Specific Gravity,Urine 1.027 (1.001-1.035); Urobilinogen,Urine <2.0 mg/dL (<2.0); WBC,Urine 2 /hpf (0-5)
[2020-04-01] MEDS ORDERED: SODIUM CHLORIDE 0.9% 500 ML 500 ML IV STA (12:58)
[2020-04-01 13:51] VITALS: BP 132/79; RESP 16
== END 2020-04-01 13:52 | disposition home or self-care (01) ==
LOC: EC 10:18
DX: E86.0 Dehydration (principal); R11.15 Cyclical vomiting syndrome unrelated to migraine; R10.9 Unspecified abdominal pain; F17.200 Nicotine dependence, unspecified, uncomplicated; Z79.899 Other long term (current) drug therapy
CPT/HCPCS: 36415; 80053; 85025; 81001; 99284; 96374; 96375 ×4; 96361 ×2; J1200; J2765; J2405; J1885; C9113

== ENCOUNTER 2020-04-02 13:05 | Emergency (ER) | payer OTHER ==
[2020-04-02] MEDS ORDERED: SODIUM CHLORIDE 0.9% 2,000 ML IV STA (13:07)
[2020-04-02] MEDS ORDERED: METOCLOPRAMIDE 5 MG/ML 2 ML VIAL IVP STA (13:07)
[2020-04-02] MEDS ORDERED: FAMOTIDINE 20 MG/2 ML VIAL IV STA (13:08)
[2020-04-02 13:14] VITALS: TEMP 97.9
--- NOTE | 2020-04-02 13:25 | ED ---
General Adult HPI - General Chief complaint: Nausea/Vomiting/Diarrhea Stated complaint: persistent vomiting Time Seen by Provider: 04/02/20 13:06 Source: patient, EMS, RN notes reviewed Mode of arrival: EMS Limitations: no limitations - History of Present Illness Initial comments: Patient is a 24-year-old male presenting to the emergency Department with complaints of nausea and vomiting. Onset of symptoms started an hour prior to arrival. Patient has had similar symptoms for years associated with cyclic vomiting. Patient admits to smoking marijuana however does not believe that plays a part of his symptoms. No fevers. No constipation or diarrhea. Patient denies having diabetes. Symptoms are similar to previous symptoms. Patient has continued nausea despite Zofran by EMS. - Related Data Home Medications Medication Instructions Recorded Confirmed Famotidine [Pepcid] 20 mg PO HS 02/28/20 03/10/20 Previous Rx's Medication Instructions Recorded Ondansetron Odt [Zofran Odt] 4 mg PO Q8HR PRN 7 Days #21 tab 04/01/20 Pantoprazole Sodium [Protonix] 40 mg PO AC-BID #28 tab 04/01/20 Allergies Allergy/AdvReac Type Severity Reaction Status Date / Time No Known Allergies Allergy Verified 04/02/20 13:14 Review of Systems ROS Statement: Those systems with pertinent positive or pertinent negative responses have been documented in the HPI. ROS Other: All systems not noted in ROS Statement are negative. Constitutional: Denies: fever Eyes: Denies: eye pain ENT: Denies: ear pain Respiratory: Denies: cough Cardiovascular: Denies: chest pain Gastrointestinal: Reports: abdominal pain, nausea, vomiting. Denies: hem atemesis Genitourinary: Denies: dysuria Musculoskeletal: Denies: back pain Skin: Denies: rash Neurological: Denies: weakness Past Medical History Past Medical History: No Reported History Additional Past Medical History / Comment(s): Cyclic vomiting syndrome History of Any Multi-Drug Resistant Organisms: None Reported Past Surgical History: No Surgical Hx Reported Additional Past Surgical History / Comment(s): Stitches, plantar wart removed Past Anesthesia/Blood Transfusion Reactions: No Reported Reaction Past Psychological History: PTSD Smoking Status: Current some day smoker Past Alcohol Use History: None Reported Past Drug Use History: Marijuana - Past Family History Father Family Medical History: Diabetes Mellitus Additional Family Medical History / Comment(s): . Alcoholism. Mother History Unknown: Yes Additional Family Medical History / Comment(s): Hypoglycemia General Exam Limitations: no limitations General appearance: alert, in no apparent distress Head exam: Present: normocephalic Eye exam: Present: normal appearance Neck exam: Present: normal inspection Respiratory exam: Present: normal lung sounds bilaterally Cardiovascular Exam: Present: regular rate, normal rhythm Expanded Peripheral pulses: 2+: Dorsalis Pedis (R), Dorsalis Pedis (L) GI/Abdominal exam: Present: soft, tenderness (Mild epigastric tenderness to palpation). Absent: distended Extremities exam: Present: normal inspection Neurological exam: Present: alert Psychiatric exam: Present: normal affect, normal mood Skin exam: Present: normal color Course Vital Signs 04/02/20 13:10 Temperature 97.9 F Pulse Rate 60 Respiratory 18 Rate Blood Pressure 112/61 O2 Sat by Pulse 99 Oximetry Medical Decision Making - Medical Decision Making Patient reevaluated and resting comfortably in bed. Nausea has improved. Patient updated on results. Patient also states Studies capsasin cream is helping. IV fluids provided. Potassium replacement provided. - Lab Data Result diagrams: 04/02/20 13:15 04/02/20 13:15 Lab Results 04/02/20 04/02/20 04/02/20 Range/Units 13:15 13:15 13:15 WBC 13.2 H (3.8-10.6) k/uL RBC 4.96 (4.30-5.90) m/uL Hgb 15.8 (13.0-17.5) gm/dL Hct 46.2 (39.0-53.0) % MCV 93.1 (80.0-100.0) fL MCH 31.9 (25.0-35.0) pg MCHC 34.2 (31.0-37.0) g/dL RDW 12.4 (11.5-15.5) % Plt Count 253 (150-450) k/uL Neutrophils % 78 % Lymphocytes % 14 % Monocytes % 6 % Eosinophils % 1 % Basophils % 0 % Neutrophils # 10.4 H (1.3-7.7) k/uL Lymphocytes # 1.8 (1.0-4.8) k/uL Monocytes # 0.8 (0-1.0) k/uL Eosinophils # 0.1 (0-0.7) k/uL Basophils # 0.1 (0-0.2) k/uL PT 11.1 (9.0-12.0) sec INR 1.1 (<1.2) APTT 22.0 (22.0-30.0) sec Sodium (137-145) mmol/L Potassium (3.5-5.1) mmol/L Chloride (98-107) mmol/L Carbon Dioxide (22-30) mmol/L Anion Gap mmol/L BUN (9-20) mg/dL Creatinine (0.66-1.25) mg/dL Est GFR (CKD-EPI)AfAm (>60 ml/min/1.73 sqM) Est GFR (CKD-EPI)NonAf (>60 ml/min/1.73 sqM) Glucose (74-99) mg/dL Calcium (8.4-10.2) mg/dL Total Bilirubin (0.2-1.3) mg/dL AST (17-59) U/L ALT (4-49) U/L Alkaline Phosphatase (38-126) U/L Total Protein (6.3-8.2) g/dL Albumin (3.5-5.0) g/dL Amylase (30-110) U/L Lipase (23-300) U/L Urine Color Yellow Urine Appearance Turbid (Clear) Urine pH 8.5 H (5.0-8.0) Ur Specific [place] 1.018 (1.001-1.035) Urine Protein Trace H (Negative) Urine Glucose (UA) Negative (Negative) Urine Ketones 3+ H (Negative) Urine Blood Negative (Negative) Urine Nitrite Negative (Negative) Urine Bilirubin Negative (Negative) Urine Urobilinogen <2.0 (<2.0) mg/dL Ur Leukocyte Esterase Negative (Negative) Urine RBC 3 (0-5) /hpf Urine WBC 12 H (0-5) /hpf Ur Squamous Epith Cells <1 (0-4) /hpf Amorphous Sediment Rare H (None) /hpf 04/02/20 Range/Units 13:15 WBC (3.8-10.6) k/uL RBC (4.30-5.90) m/uL Hgb (13.0-17.5) gm/dL Hct (39.0-53.0) % MCV (80.0-100.0) fL MCH (25.0-35.0) pg MCHC (31.0-37.0) g/dL RDW (11.5-15.5) % Plt Count (150-450) k/uL Neutrophils % % Lymphocytes % % Monocytes % % Eosinophils % % Basophils % % Neutrophils # (1.3-7.7) k/uL Lymphocytes # (1.0-4.8) k/uL Monocytes # (0-1.0) k/uL Eosinophils # (0-0.7) k/uL Basophils # (0-0.2) k/uL PT (9.0-12.0) sec INR (<1.2) APTT (22.0-30.0) sec Sodium 137 (137-145) mmol/L Potassium 3.1 L (3.5-5.1) mmol/L Chloride 95 L (98-107) mmol/L Carbon Dioxide 27 (22-30) mmol/L Anion Gap 15 mmol/L BUN 21 H (9-20) mg/dL Creatinine 0.82 (0.66-1.25) mg/dL Est GFR (CKD-EPI)AfAm >90 (>60 ml/min/1.73 sqM) Est GFR (CKD-EPI)NonAf >90 (>60 ml/min/1.73 sqM) Glucose 134 H (74-99) mg/dL Calcium 9.7 (8.4-10.2) mg/dL Total Bilirubin 2.3 H (0.2-1.3) mg/dL AST 29 (17-59) U/L ALT 20 (4-49) U/L Alkaline Phosphatase 45 (38-126) U/L Total Protein 8.0 (6.3-8.2) g/dL Albumin 5.2 H (3.5-5.0) g/dL Amylase 84 (30-110) U/L Lipase 57 (23-300) U/L Urine Color Urine Appearance (Clear) Urine pH (5.0-8.0) Ur Specific [place] (1.001-1.035) Urine Protein (Negative) Urine Glucose (UA) (Negative) Urine Ketones (Negative) Urine Blood (Negative) Urine Nitrite (Negative) Urine Bilirubin (Negative) Urine Urobilinogen (<2.0) mg/dL Ur Leukocyte Esterase (Negative) Urine RBC (0-5) /hpf Urine WBC (0-5) /hpf Ur Squamous Epith Cells (0-4) /hpf Amorphous Sediment (None) /hpf - Radiology Data Radiology results: image reviewed (Abdominal x-ray shows nonspecific abdomen) Disposition Clinical Impression: Dehydration, Cyclical vomiting, Chronic abdominal pain Disposition: HOME SELF-CARE Condition: Stable Instructions (If sedation given, give patient instructions): Cyclic Vomiting Syndrome (ED) Additional Instructions: Discontinue marijuana. Please follow-up with primary care physician in the next couple days for recheck. Return for fevers, not tolerating oral intake, change or worsening symptoms or other concerns. Is patient prescribed a controlled substance at d/c from ED?: No Referrals: Christine Ferreira MD [REFERRING] - 1-2 days Time of Disposition: 15:18
[2020-04-02] MEDS ORDERED: CAPSAICIN 0.025% CREAM 60 GM TUBE TOPICAL STA (13:26)
[2020-04-02 13:42] LABS: Basophils # (A) 0.1 k/uL (0-0.2); Basophils % (A) 0 %; Eosinophils # (A) 0.1 k/uL (0-0.7); Eosinophils % (A) 1 %; HCT 46.2 % (39.0-53.0); HGB 15.8 gm/dL (13.0-17.5); Lymphocytes # (A) 1.8 k/uL (1.0-4.8); Lymphocytes % (A) 14 %; MCH 31.9 pg (25.0-35.0); MCHC 34.2 g/dL (31.0-37.0); MCV 93.1 fL (80.0-100.0); Mean Platelet Volume 7.3; Monocytes # (A) 0.8 k/uL (0-1.0); Monocytes % (A) 6 %; Neutrophils # (A) 10.4 k/uL (1.3-7.7); Neutrophils % (A) 78 %; Platelet Count 253 k/uL (150-450); RBC 4.96 m/uL (4.30-5.90); RDW 12.4 % (11.5-15.5); WBC 13.2 k/uL (3.8-10.6)
--- NOTE | 2020-04-02 13:49 | XR ---
EXAMINATION TYPE: XR abdomen 1V DATE OF EXAM: 04/02/2020 1:44 PM CLINICAL HISTORY: Abdominal pain and vomiting. TECHNIQUE: Three Upright KUB images of the abdomen are obtained. COMPARISON: Outside abdominal x-ray September 28, 2019. FINDINGS: Some paucity of bowel gas. Gas seen in nondistended stomach epigastric region. Some scatter ed gas seen in nondistended small and large bowel loops. There is no visceromegaly, pneumoperitoneum, or abnormal calcification appreciated. The lung bases are clear . Mild to moderate axial joint space loss in both hips right greater than left is redemonstrated. IMPRESSION: Overall nonspecific but felt to be nonobstructive bowel gas pattern remains present.
[2020-04-02 13:50] LABS: ALT 20 U/L (4-49); AST 29 U/L (17-59); African American GFR (CKD) >90 (>60 ml/min/1.73 sqM); Albumin 5.2 g/dL (3.5-5.0); Alkaline Phosphatase 45 U/L (38-126); Amylase 84 U/L (30-110); Anion Gap 15 mmol/L; Blood Urea Nitrogen 21 mg/dL (9-20); Calcium 9.7 mg/dL (8.4-10.2); Carbon Dioxide 27 mmol/L (22-30); Chloride 95 mmol/L (98-107); Glucose 134 mg/dL (74-99); Non-African American GFR(CKD) >90 (>60 ml/min/1.73 sqM); Potassium 3.1 mmol/L (3.5-5.1); Sodium 137 mmol/L (137-145); Total Bilirubin 2.3 mg/dL (0.2-1.3)
[2020-04-02 13:57] LABS: Amorphous Sediment,Urine Rare /hpf; Appearance,Urine Turbid (Clear); Bilirubin,Urine Negative (Negative); Blood,Urine Negative (Negative); Color,Urine Yellow; Glucose,Urine (UA) Negative (Negative); Ketones,Urine 3+ (Negative); Leukocyte Esterase,Urine Negative (Negative); Nitrite,Urine Negative (Negative); PH, Urine 8.5 (5.0-8.0); Protein,Urine Trace (Negative); RBC,Urine 3 /hpf (0-5); Specific Gravity,Urine 1.018 (1.001-1.035); Squamous Epithelial Cell,Urine <1 /hpf (0-4); Urobilinogen,Urine <2.0 mg/dL (<2.0); WBC,Urine 12 /hpf (0-5)
[2020-04-02 14:03] LABS: INR 1.1 (<1.2); Prothrombin Time 11.1 sec (9.0-12.0)
[2020-04-02] MEDS ORDERED: POTASSIUM CHLORIDE 10 MEQ in WATER FOR INJECTION 1 100ML.BAG IVPB STA (14:16)
[2020-04-02] MEDS ORDERED: POTASSIUM CHLORIDE ER 20 MEQ TAB.ER PO STA (14:16)
[2020-04-02 15:25] VITALS: BP 108/52; PULSE 66; RESP 16
== END 2020-04-02 13:49 | disposition home or self-care (01) ==
LOC: EC 13:05
DX: E86.0 Dehydration (principal); R11.15 Cyclical vomiting syndrome unrelated to migraine; R10.13 Epigastric pain; G89.29 Other chronic pain; F17.200 Nicotine dependence, unspecified, uncomplicated
CPT/HCPCS: 36415; 74018; 80053; 81001; 82150; 83690; 85025; 85610; 85730; 87086; 96361; 96365; 96375; 99284

== ENCOUNTER 2020-04-03 08:24 | Observation (INO) | payer OTHER ==
[2020-04-03] MEDS ORDERED: SODIUM CHLORIDE 0.9% 1,000 ML IV STA (08:44)
[2020-04-03] MEDS ORDERED: SODIUM CHLORIDE 0.9% 500 ML 500 ML IV STA (08:44)
[2020-04-03] MEDS ORDERED: ONDANSETRON 4 MG/2 ML VIAL IVP STA (08:44)
[2020-04-03] MEDS ORDERED: FAMOTIDINE 20 MG/2 ML VIAL IV STA (08:44)
[2020-04-03] MEDS ORDERED: CAPSAICIN 0.025% CREAM 60 GM TUBE TOPICAL STA (08:44)
--- NOTE | 2020-04-03 09:06 | ED ---
General Adult HPI - General Source: patient, EMS, RN notes reviewed Mode of arrival: EMS Limitations: no limitations <James Huertas - Last Filed: 04/03/20 10:27> <Jose Powell - Last Filed: 04/03/20 10:32> - General Chief complaint: Abdominal Pain Stated complaint: Abd Pain Time Seen by Provider: 04/03/20 08:35 - History of Present Illness Initial comments: 24-year-old male with a past medical history of chronic abdominal pain, cyclic vomiting syndrome presents to the emergency room for chief amount of nausea vomiting. Patient states he has been having nausea vomiting for the past 3-4 days. Reports that this is consistent with his symptoms of cyclic vomiting syndrome. Patient initially was out of his Zofran and Protonix but has since had that refilled. States it is not helping much.Patient has no other complaints at this time including shortness of breath, chest pain, headache, or visual changes. (James Huertas) - Related Data Home Medications Medication Instructions Recorded Confirmed Famotidine [Pepcid] 20 mg PO HS 02/28/20 03/10/20 Previous Rx's Medication Instructions Recorded Ondansetron Odt [Zofran Odt] 4 mg PO Q8HR PRN 7 Days #21 tab 04/01/20 Pantoprazole Sodium [Protonix] 40 mg PO AC-BID #28 tab 04/01/20 Allergies Allergy/AdvReac Type Severity Reaction Status Date / Time No Known Allergies Allergy Verified 04/02/20 13:14 Review of Systems ROS Other: All systems not noted in ROS Statement are negative. <James Huertas - Last Filed: 04/03/20 10:27> ROS Other: All systems not noted in ROS Statement are negative. <Jose Powell - Last Filed: 04/03/20 10:32> ROS Statement: Those systems with pertinent positive or pertinent negative responses have been documented in the HPI. Past Medical History Past Medical History: No Reported History Additional Past Medical History / Comment(s): Cyclic vomiting syndrome History of Any Multi-Drug Resistant Organisms: None Reported Past Surgical History: No Surgical Hx Reported Additional Past Surgical History / Comment(s): Stitches, plantar wart removed Past Anesthesia/Blood Transfusion Reactions: No Reported Reaction Past Psychological History: PTSD Smoking Status: Current some day smoker Past Alcohol Use History: None Reported Past Drug Use History: Marijuana - Past Family History Father Family Medical History: Diabetes Mellitus Additional Family Medical History / Comment(s): . Alcoholism. Mother History Unknown: Yes Additional Family Medical History / Comment(s): Hypoglycemia <James Huertas - Last Filed: 04/03/20 10:27> General Exam Limitations: no limitations General appearance: alert, in no apparent distress Head exam: Present: atraumatic, normocephalic, normal inspection Eye exam: Present: normal appearance, PERRL, EOMI. Absent: scleral icterus, conjunctival injection, periorbital swelling ENT exam: Present: normal exam, mucous membranes moist Neck exam: Present: normal inspection. Absent: tenderness, meningismus, lymphadenopathy Respiratory exam: Present: normal lung sounds bilaterally. Absent: respiratory distress, wheezes, rales, rhonchi, stridor Cardiovascular Exam: Present: regular rate, normal rhythm, normal heart sounds. Absent: systolic murmur, diastolic murmur, rubs, gallop, clicks GI/Abdominal exam: Present: soft, normal bowel sounds. Absent: distended, tenderness, guarding, rebound, rigid Neurological exam: Present: alert <James Huertas - Last Filed: 04/03/20 10:27> Course <Jose Powell - Last Filed: 04/03/20 10:32> Vital Signs 04/03/20 08:26 Temperature 98.0 F Pulse Rate 54 L Respiratory 18 Rate Blood Pressure 132/67 O2 Sat by Pulse 98 Oximetry - Reevaluation(s) Reevaluation #1: 04/03/20 10:31 PA supervision: I personally evaluate this case patient will be admitted to Dr. Barrientos. Patient does present with the third time for intractable vomiting. The assessment and plan. (Jose Powell) Medical Decision Making - Lab Data Result diagrams: 04/03/20 09:32 04/03/20 09:32 <James Huertas - Last Filed: 04/03/20 10:27> - Lab Data Result diagrams: 04/03/20 09:32 04/03/20 09:32 <Jose Powell - Last Filed: 04/03/20 10:32> - Medical Decision Making Vitals are stable. CBC is unremarkable. There is leukocytosis which is likely reactive to vomiting. CMP shows mild hypokalemia which is persistent. This was orally replaced. Urinalysis shows 2+ ketones. Patient is still experiencing intractable nausea vomiting after several medications. He did attempt to get into GI but they cannot see him until April 26. This is patient's third visit in 3 days. At this time patient will be admitted for symptomatically treatment, IV rehydration and GI consultation. (James Huertas) - Lab Data Lab Results 04/03/20 04/03/20 04/03/20 Range/Units 09:32 09:32 09:32 WBC 14.8 H (3.8-10.6) k/uL RBC 4.44 (4.30-5.90) m/uL Hgb 14.2 (13.0-17.5) gm/dL Hct 42.5 (39.0-53.0) % MCV 95.8 (80.0-100.0) fL MCH 32.1 (25.0-35.0) pg MCHC 33.5 (31.0-37.0) g/dL RDW 12.4 (11.5-15.5) % Plt Count 225 (150-450) k/uL Neutrophils % 82 % Lymphocytes % 12 % Monocytes % 5 % Eosinophils % 0 % Basophils % 0 % Neutrophils # 12.1 H (1.3-7.7) k/uL Lymphocytes # 1.7 (1.0-4.8) k/uL Monocytes # 0.7 (0-1.0) k/uL Eosinophils # 0.0 (0-0.7) k/uL Basophils # 0.1 (0-0.2) k/uL Sodium 138 (137-145) mmol/L Potassium 3.3 L (3.5-5.1) mmol/L Chloride 103 (98-107) mmol/L Carbon Dioxide 25 (22-30) mmol/L Anion Gap 10 mmol/L BUN 14 (9-20) mg/dL Creatinine 0.70 (0.66-1.25) mg/dL Est GFR (CKD-EPI)AfAm >90 (>60 ml/min/1.73 sqM) Est GFR (CKD-EPI)NonAf >90 (>60 ml/min/1.73 sqM) Glucose 136 H (74-99) mg/dL Calcium 8.5 (8.4-10.2) mg/dL Total Bilirubin 1.9 H (0.2-1.3) mg/dL AST 28 (17-59) U/L ALT 16 (4-49) U/L Alkaline Phosphatase 31 L (38-126) U/L Total Protein 6.6 (6.3-8.2) g/dL Albumin 4.3 (3.5-5.0) g/dL Amylase 54 (30-110) U/L Lipase 65 (23-300) U/L Urine Color Light Yellow Urine Appearance Cloudy (Clear) Urine pH 8.0 (5.0-8.0) Ur Specific [place] 1.011 (1.001-1.035) Urine Protein Negative (Negative) Urine Glucose (UA) Negative (Negative) Urine Ketones 2+ H (Negative) Urine Blood Negative (Negative) Urine Nitrite Negative (Negative) Urine Bilirubin Negative (Negative) Urine Urobilinogen <2.0 (<2.0) mg/dL Ur Leukocyte Esterase Negative (Negative) Urine RBC 1 (0-5) /hpf Urine WBC 3 (0-5) /hpf Amorphous Sediment Rare H (None) /hpf Disposition Is patient prescribed a controlled substance at d/c from ED?: No Time of Disposition: 10:23 <James Huertas - Last Filed: 04/03/20 10:27> <Jose Powell - Last Filed: 04/03/20 10:32> Clinical Impression: Intractable nausea and vomiting, Cyclical vomiting, Chronic abdominal pain Disposition: ADMITTED IP TO THIS HOSP Condition: Fair Referrals: None,Stated [Primary Care Provider] - 1-2 days
[2020-04-03 09:41] LABS: Basophils # (A) 0.1 k/uL (0-0.2); Basophils % (A) 0 %; Eosinophils % (A) 0 %; HCT 42.5 % (39.0-53.0); HGB 14.2 gm/dL (13.0-17.5); Lymphocytes # (A) 1.7 k/uL (1.0-4.8); Lymphocytes % (A) 12 %; MCH 32.1 pg (25.0-35.0); MCHC 33.5 g/dL (31.0-37.0); MCV 95.8 fL (80.0-100.0); Mean Platelet Volume 7.7; Monocytes # (A) 0.7 k/uL (0-1.0); Monocytes % (A) 5 %; Neutrophils # (A) 12.1 k/uL (1.3-7.7); Neutrophils % (A) 82 %; Platelet Count 225 k/uL (150-450); RBC 4.44 m/uL (4.30-5.90); RDW 12.4 % (11.5-15.5); WBC 14.8 k/uL (3.8-10.6)
[2020-04-03 09:50] LABS: ALT 16 U/L (4-49); AST 28 U/L (17-59); African American GFR (CKD) >90 (>60 ml/min/1.73 sqM); Albumin 4.3 g/dL (3.5-5.0); Alkaline Phosphatase 31 U/L (38-126); Amylase 54 U/L (30-110); Anion Gap 10 mmol/L; Blood Urea Nitrogen 14 mg/dL (9-20); Calcium 8.5 mg/dL (8.4-10.2); Carbon Dioxide 25 mmol/L (22-30); Chloride 103 mmol/L (98-107); Glucose 136 mg/dL (74-99); Non-African American GFR(CKD) >90 (>60 ml/min/1.73 sqM); Sodium 138 mmol/L (137-145); Total Bilirubin 1.9 mg/dL (0.2-1.3); Total Protein 6.6 g/dL (6.3-8.2)
[2020-04-03 09:51] LABS: Amorphous Sediment,Urine Rare /hpf; Appearance,Urine Cloudy (Clear); Bilirubin,Urine Negative (Negative); Blood,Urine Negative (Negative); Color,Urine Light Yellow; Glucose,Urine (UA) Negative (Negative); Ketones,Urine 2+ (Negative); Leukocyte Esterase,Urine Negative (Negative); Nitrite,Urine Negative (Negative); Protein,Urine Negative (Negative); RBC,Urine 1 /hpf (0-5); Specific Gravity,Urine 1.011 (1.001-1.035); Urobilinogen,Urine <2.0 mg/dL (<2.0); WBC,Urine 3 /hpf (0-5)
[2020-04-03 10:00] LABS: Potassium 3.3 mmol/L (3.5-5.1)
[2020-04-03] MEDS ORDERED: METOCLOPRAMIDE 5 MG/ML 2 ML VIAL IVP STA (10:11)
[2020-04-03] MEDS ORDERED: diphenhydrAMINE 50 MG/ML 1 ML VIAL IVP STA (10:11)
[2020-04-03] MEDS ORDERED: KETOROLAC 15 MG/ML 1 ML VIAL IVP PRN (10:18)
[2020-04-03] MEDS ORDERED: NALOXONE 0.4 MG/ML 1 ML VIAL IV PRN ×2 (10:18→10:30)
[2020-04-03] MEDS ORDERED: ONDANSETRON 4 MG/2 ML VIAL IVP PRN (10:18)
[2020-04-03] MEDS ORDERED: PROCHLORPERAZINE 5 MG TAB PO PRN (10:30)
[2020-04-03] MEDS ORDERED: PROMETHAZINE 25 MG TAB PO PRN (10:30)
[2020-04-03] MEDS ORDERED: ALPRAZolam 0.25 MG TAB PO PRN (10:30)
[2020-04-03] MEDS ORDERED: PROCHLORPERAZINE SUPPOSITORY 25 MG SUPP RECTAL PRN (10:30)
[2020-04-03] MEDS ORDERED: SODIUM CHLORIDE 0.9% 1,000 ML IV SCH (10:30)
[2020-04-03] MEDS: POTASSIUM CHLORIDE ER 20 MEQ TAB.ER PO STA ×2 (10:39→10:43)
[2020-04-03] MEDS ORDERED: LORazepam 1 MG TAB PO PRN (10:59)
[2020-04-03] MEDS ORDERED: LORazepam 2 MG/ML INJ IV PRN (10:59)
[2020-04-03 11:13] LABS: Glucose,Whole Blood 119 mg/dL (75-99)
--- NOTE | 2020-04-03 11:26 | P.HPIM ---
History of Present Illness H&P Date: 04/03/20 Chief Complaint: Poor PO intake 24 year old man with history of marijuana use, cyclic vomiting syndrome presents with poor PO intake. Pt says that he has not been able to keep any fluids or food down since last , and has been to the ER multiple times for this issue. Unfortunately his home zofran medication is not working for his nausea/vomiting, and he feels very weak and dehydrated. He also is reporting soreness in his abdomen from constant retching, and describes episodes of abdominal/stomach spasms causing his body to shake. He reports chills, and feeling cold, but denies fevers, chest pain, palps, syncope, diarrhea, constipation, hematochezia, melena, hematemesis, dysuria, numbness. On arrival patient was afebrile, 132/67, HR 54, 98% on room air. CBC remarkable for leukocytosis to 14.8. Chemistries show hypokalemia to 3.3 and elevated glucose. LFTs and lipase unremarkable. Review of Systems All Systems reviewed and pertinent positives and negatives noted in HPI, all other symptoms are negative Past Medical History Past Medical History: No Reported History Additional Past Medical History / Comment(s): Cyclic vomiting syndrome History of Any Multi-Drug Resistant Organisms: None Reported Past Surgical History: No Surgical Hx Reported Additional Past Surgical History / Comment(s): Stitches, plantar wart removed Past Anesthesia/Blood Transfusion Reactions: No Reported Reaction Additional Past Anesthesia/Blood Transfusion Reaction / Comment(s): Pt has never had surgery Smoking Status: Current some day smoker - Past Family History Father Family Medical History: Diabetes Mellitus Additional Family Medical History / Comment(s): . Alcoholism. Mother History Unknown: Yes Additional Family Medical History / Comment(s): Hypoglycemia Medications and Allergies Home Medications Medication Instructions Recorded Confirmed Type Famotidine [Pepcid] 20 mg PO HS 02/28/20 03/10/20 History Ondansetron Odt [Zofran Odt] 4 mg PO Q8HR PRN 7 Days #21 tab 04/01/20 Rx Pantoprazole Sodium [Protonix] 40 mg PO AC-BID #28 tab 04/01/20 Rx Allergies Allergy/AdvReac Type Severity Reaction Status Date / Time No Known Allergies Allergy Verified 04/02/20 13:14 Physical Exam Osteopathic Statement: *. No significant issues noted on an osteopathic structural exam other than those noted in the History and Physical/Consult. Vitals: Vital Signs Temp Pulse Resp BP Pulse Ox 04/03/20 11:05 68 17 134/59 100 04/03/20 08:26 98.0 F 54 L 18 132/67 98 Intake and Output 04/02/20 04/03/20 04/03/20 22:59 06:59 14:59 Other: Weight 90.718 kg Gen: awake, alert HEENT: normocephalic, atraumatic, good hearing acuity, moist mucous membranes Resp: CTAB, good air exchange, no accessory muscle use, no wheezes, crackles, rhonchi CVS: good distal perfusion x 4, RRR, no murmurs, clicks, gallops GI: soft, NTTP, ND : no SPT, no CVAT, tobias catheter not present MSK: no pitting edema, no clubbing Neuro: non-focal, no sensory deficits, appropriate tone Psych: cooperative, euthymic mood Results CBC & Chem 7: 04/03/20 09:32 04/03/20 09:32 Labs: Abnormal Lab Results - Last 24 Hours (Table) 04/03/20 04/03/20 04/03/20 Range/Units 09:32 09:32 09:32 WBC 14.8 H (3.8-10.6) k/uL Neutrophils # 12.1 H (1.3-7.7) k/uL Potassium 3.3 L (3.5-5.1) mmol/L Glucose 136 H (74-99) mg/dL POC Glucose (mg/dL) (75-99) mg/dL Total Bilirubin 1.9 H (0.2-1.3) mg/dL Alkaline Phosphatase 31 L (38-126) U/L Urine Ketones 2+ H (Negative) Amorphous Sediment Rare H (None) /hpf 04/03/20 Range/Units 11:09 WBC (3.8-10.6) k/uL Neutrophils # (1.3-7.7) k/uL Potassium (3.5-5.1) mmol/L Glucose (74-99) mg/dL POC Glucose (mg/dL) 119 H (75-99) mg/dL Total Bilirubin (0.2-1.3) mg/dL Alkaline Phosphatase (38-126) U/L Urine Ketones (Negative) Amorphous Sediment (None) /hpf Thrombosis Risk Factor Assmnt - Choose All That Apply Any of the Below Risk Factors Present?: Yes Each Factor Represents 1 point: Obesity (BMI >25) Other Risk Factors: No Other congenital or acquired thrombophilia - If yes, enter type in comment: No Thrombosis Risk Factor Assessment Total Risk Factor Score: 1 Thrombosis Risk Factor Assessment Level: Low Risk Assessment and Plan Assessment: 1. Dehydration 2. Intractable nausea/vomiting 3. Cyclic vomiting syndrome 4. Hyperglycemia 5. Marijuana use next 24-year-old man with a past medical history marijuana use and cyclic vomiting syndrome presented with intractable nausea/vomiting since of last week causing dehydration with ketogenic urine; admitted for evaluation by GI. Plan: - LR @ 130cc/hr - daily BMP, Mg - PRN nausea control: zofran, compazine, reglan, phenergan, and ativan PRN - GI consult - A1c and beta-hydroxybutyrate to rule out type I DM. - cessation counseling for marijuana DVT PPx: chemoprophylaxis not indicated, ambulate TID Full Code
[2020-04-03] MEDS: LACTATED RINGERS 1,000 ML IV SCH ×2 (11:38→20:35)
[2020-04-03 12:11] LABS: Glucose,Whole Blood 99 mg/dL (75-99)
--- NOTE | 2020-04-03 15:06 | US ---
EXAMINATION TYPE: US abdomen complete DATE OF EXAM: 04/03/2020 COMPARISON: NONE CLINICAL HISTORY: ABDOMINAL PAIN, NAUSEA/VOMITING. ABD pain N&V x 3 days EXAM MEASUREMENTS: Liver Length: 14.0 cm Gallbladder Wall: 0.2 cm CBD: 0.2 cm Spleen: 10.8 cm Right Kidney: 10.7 x 4.9 x 5.1 cm Left Kidney: 11.1 x 5.6 x 5.3 cm Pancreas: Obscured by bowel gas Liver: Visualized portions appeared normal, visualized mostly intercostally Gallbladder: Normal. [employer] Database Manager reports no evidence of sonographic Lundberg sign. CBD: Normal. Spleen: Normal. Right Kidney: Normal. Left Kidney: Normal where visualized. The lower pole is obscured by overlying bowel gas. Upper IVC: Normal. Abd Aorta: Normal. IMPRESSION: 1. No acute process of the visualized abdomen to explain patient's abdominal pain. Normal gallbladder . 2. Pancreas obscured due to overlying bowel gas. 3. Left renal lower pole obscured by overlying bowel gas.
[2020-04-03 15:08] VITALS: BMI 31.3
[2020-04-03] MEDS ORDERED: METOCLOPRAMIDE 5 MG/ML 2 ML VIAL IVP PRN (16:00)
[2020-04-03 16:20] LABS: Hemoglobin A1C 5.5 % (4.0-6.0)
[2020-04-03] MEDS: NICOTINE 21MG/24HR PATCH TRANSDERM SCH (16:20)
[2020-04-03] MEDS: ONDANSETRON 4 MG/2 ML VIAL IVP SCH (16:20)
[2020-04-03 16:39] LABS: Glucose,Whole Blood 95 mg/dL (75-99)
[2020-04-03] MEDS: PANTOPRAZOLE 40 MG/10 ML VIAL IV SCH (22:05)
[2020-04-03 22:40] LABS: Glucose,Whole Blood 100 mg/dL (75-99)
[2020-04-04] MEDS ORDERED: ONDANSETRON 4 MG/2 ML VIAL ONE ×2 (00:24)
[2020-04-04] MEDS: ONDANSETRON 4 MG/2 ML VIAL IVP SCH ×2 (00:24→07:48)
--- NOTE | 2020-04-04 06:28 | ED ---
General Adult HPI - General Chief complaint: Abdominal Pain Stated complaint: Abd Pain Time Seen by Provider: 04/03/20 08:35 Source: patient, EMS, RN notes reviewed Mode of arrival: EMS Limitations: no limitations - Related Data Home Medications Medication Instructions Recorded Confirmed Famotidine [Pepcid] 20 mg PO HS 02/28/20 04/03/20 Ondansetron Odt [Zofran Odt] 4 mg PO Q8HR PRN 04/03/20 04/03/20 Pantoprazole Sodium [Protonix] 40 mg PO BID 04/03/20 04/03/20 Allergies Allergy/AdvReac Type Severity Reaction Status Date / Time No Known Allergies Allergy Verified 04/03/20 12:00 Review of Systems ROS Statement: Those systems with pertinent positive or pertinent negative responses have been documented in the HPI. ROS Other: All systems not noted in ROS Statement are negative. Past Medical History Past Medical History: No Reported History Additional Past Medical History / Comment(s): Cyclic vomiting syndrome History of Any Multi-Drug Resistant Organisms: None Reported Past Surgical History: No Surgical Hx Reported Additional Past Surgical History / Comment(s): Stitches, plantar wart removed Past Anesthesia/Blood Transfusion Reactions: No Reported Reaction Additional Past Anesthesia/Blood Transfusion Reaction / Comment(s): Pt has never had surgery Smoking Status: Current some day smoker - Past Family History Father Family Medical History: Diabetes Mellitus Additional Family Medical History / Comment(s): . Alcoholism. Mother History Unknown: Yes Additional Family Medical History / Comment(s): Hypoglycemia General Exam Limitations: no limitations General appearance: alert, in no apparent distress Course Vital Signs 04/03/20 04/03/20 08:26 11:05 Temperature 98.0 F Pulse Rate 54 L 68 Respiratory 18 17 Rate Blood Pressure 132/67 134/59 O2 Sat by Pulse 98 100 Oximetry Medical Decision Making - Lab Data Result diagrams: 04/03/20 09:32 04/03/20 09:32 Lab Results 04/03/20 04/03/20 04/03/20 Range/Units 09:32 09:32 09:32 WBC 14.8 H (3.8-10.6) k/uL RBC 4.44 (4.30-5.90) m/uL Hgb 14.2 (13.0-17.5) gm/dL Hct 42.5 (39.0-53.0) % MCV 95.8 (80.0-100.0) fL MCH 32.1 (25.0-35.0) pg MCHC 33.5 (31.0-37.0) g/dL RDW 12.4 (11.5-15.5) % Plt Count 225 (150-450) k/uL Neutrophils % 82 % Lymphocytes % 12 % Monocytes % 5 % Eosinophils % 0 % Basophils % 0 % Neutrophils # 12.1 H (1.3-7.7) k/uL Lymphocytes # 1.7 (1.0-4.8) k/uL Monocytes # 0.7 (0-1.0) k/uL Eosinophils # 0.0 (0-0.7) k/uL Basophils # 0.1 (0-0.2) k/uL Sodium 138 (137-145) mmol/L Potassium 3.3 L (3.5-5.1) mmol/L Chloride 103 (98-107) mmol/L Carbon Dioxide 25 (22-30) mmol/L Anion Gap 10 mmol/L BUN 14 (9-20) mg/dL Creatinine 0.70 (0.66-1.25) mg/dL Est GFR (CKD-EPI)AfAm >90 (>60 ml/min/1.73 sqM) Est GFR (CKD-EPI)NonAf >90 (>60 ml/min/1.73 sqM) Glucose 136 H (74-99) mg/dL Estimated Ave Glu mg/dL Hemoglobin A1c (4.0-6.0) % Calcium 8.5 (8.4-10.2) mg/dL Total Bilirubin 1.9 H (0.2-1.3) mg/dL AST 28 (17-59) U/L ALT 16 (4-49) U/L Alkaline Phosphatase 31 L (38-126) U/L Total Protein 6.6 (6.3-8.2) g/dL Albumin 4.3 (3.5-5.0) g/dL Amylase 54 (30-110) U/L Lipase 65 (23-300) U/L Urine Color Light Yellow Urine Appearance Cloudy (Clear) Urine pH 8.0 (5.0-8.0) Ur Specific [place] 1.011 (1.001-1.035) Urine Protein Negative (Negative) Urine Glucose (UA) Negative (Negative) Urine Ketones 2+ H (Negative) Urine Blood Negative (Negative) Urine Nitrite Negative (Negative) Urine Bilirubin Negative (Negative) Urine Urobilinogen <2.0 (<2.0) mg/dL Ur Leukocyte Esterase Negative (Negative) Urine RBC 1 (0-5) /hpf Urine WBC 3 (0-5) /hpf Amorphous Sediment Rare H (None) /hpf 04/03/20 Range/Units 09:32 WBC (3.8-10.6) k/uL RBC (4.30-5.90) m/uL Hgb (13.0-17.5) gm/dL Hct (39.0-53.0) % MCV (80.0-100.0) fL MCH (25.0-35.0) pg MCHC (31.0-37.0) g/dL RDW (11.5-15.5) % Plt Count (150-450) k/uL Neutrophils % % Lymphocytes % % Monocytes % % Eosinophils % % Basophils % % Neutrophils # (1.3-7.7) k/uL Lymphocytes # (1.0-4.8) k/uL Monocytes # (0-1.0) k/uL Eosinophils # (0-0.7) k/uL Basophils # (0-0.2) k/uL Sodium (137-145) mmol/L Potassium (3.5-5.1) mmol/L Chloride (98-107) mmol/L Carbon Dioxide (22-30) mmol/L Anion Gap mmol/L BUN (9-20) mg/dL Creatinine (0.66-1.25) mg/dL Est GFR (CKD-EPI)AfAm (>60 ml/min/1.73 sqM) Est GFR (CKD-EPI)NonAf (>60 ml/min/1.73 sqM) Glucose (74-99) mg/dL Estimated Ave Glu mg/dL 111 Hemoglobin A1c 5.5 (4.0-6.0) % Calcium (8.4-10.2) mg/dL Total Bilirubin (0.2-1.3) mg/dL AST (17-59) U/L ALT (4-49) U/L Alkaline Phosphatase (38-126) U/L Total Protein (6.3-8.2) g/dL Albumin (3.5-5.0) g/dL Amylase (30-110) U/L Lipase (23-300) U/L Urine Color Urine Appearance (Clear) Urine pH (5.0-8.0) Ur Specific [place] (1.001-1.035) Urine Protein (Negative) Urine Glucose (UA) (Negative) Urine Ketones (Negative) Urine Blood (Negative) Urine Nitrite (Negative) Urine Bilirubin (Negative) Urine Urobilinogen (<2.0) mg/dL Ur Leukocyte Esterase (Negative) Urine RBC (0-5) /hpf Urine WBC (0-5) /hpf Amorphous Sediment (None) /hpf Disposition Clinical Impression: Intractable nausea and vomiting, Cyclical vomiting, Chronic abdominal pain Disposition: ADMITTED IP TO THIS [facility] Condition: Fair
[2020-04-04 06:57] LABS: Glucose,Whole Blood 87 mg/dL (75-99)
--- NOTE | 2020-04-04 07:12 | P.CONS ---
History of Present Illness - Reason for Consult Consult date: 04/03/20 Nausea and vomiting Requesting physician: Gil Barrientos - Chief Complaint Nausea and vomiting - History of Present Illness 24-year-old male with a medical history significant for marijuana abuse, cyclical vomiting syndrome, GERD who presented to the hospital due to nausea, vomiting and poor oral intake. The patient reports symptoms occurring over the past few days prior to presentation. He has had multiple episodes of nausea and vomiting and been unable to hold down oral intake. The patient has a known history of marijuana abuse and has been told to remain abstinent in the past. In addition he followed up in the gastroenterology clinic a few months ago at which time he was told about GERD and was given the multiple lifestyle modifications to decrease acid reflux including avoiding trigger foods and eating late at night. He was also given medical therapy with PPIs and H2 antagonists. He reports much improvement in his symptoms with this regimen. He also notes that if he eats late at night or has dietary indiscretions his symptoms worsen. However he presents to the hospital after having multiple episodes of nonbloody nonbilious emesis. No prior EGD or colonoscopy reported. Ultrasound of the abdomen negative for any acute hepatobiliary pathology. Laboratory evaluation on presentation significant for WBC 14.8, hemoglobin 14.2, platelet count 225,000, total bilirubin 1.9, AST 28, ALT 16, alkaline phosphatase 31. He denies any change in bowel habits. Review of Systems REVIEW OF SYSTEMS: CONSTITUTIONAL: Denies any fevers, chills, weight change or fatigue. CARDIOVASCULAR: Denies any chest pain, palpitations high or low blood pressures RESPIRATORY: Denies any shortness of breath, hemoptysis or cough. GENITOURINARY: No dysuria or hematuria. MUSCULOSKELETAL: No weakness reported. SKIN: Denies any new rashes or lesions, jaundice or pallor. PSYCHIATRIC: Denies any depression or anxiety, marijuana abuse. NEUROLOGY: Denies headache, denies any new focal deficits. EARS/NOSE/THROAT: No recent hearing change, congestion, nasal discharge or sore throat. EYES: No pain in eyes, discharge or change in vision. GASTROINTESTINAL: As per HPI. Past Medical History Past Medical History: No Reported History Additional Past Medical History / Comment(s): Cyclic vomiting syndrome History of Any Multi-Drug Resistant Organisms: None Reported Past Surgical History: No Surgical Hx Reported Additional Past Surgical History / Comment(s): Stitches, plantar wart removed Past Anesthesia/Blood Transfusion Reactions: No Reported Reaction Additional Past Anesthesia/Blood Transfusion Reaction / Comm: Pt has never had surgery Smoking Status: Current some day smoker - Past Family History Father Family Medical History: Diabetes Mellitus Additional Family Medical History / Comment(s): . Alcoholism. Mother History Unknown: Yes Additional Family Medical History / Comment(s): Hypoglycemia Medications and Allergies Home Medications Medication Instructions Recorded Confirmed Type Famotidine [Pepcid] 20 mg PO HS 02/28/20 04/03/20 History Ondansetron Odt [Zofran Odt] 4 mg PO Q8HR PRN 04/03/20 04/03/20 History Pantoprazole Sodium [Protonix] 40 mg PO BID 04/03/20 04/03/20 History Allergies Allergy/AdvReac Type Severity Reaction Status Date / Time No Known Allergies Allergy Verified 04/03/20 12:00 Physical Exam Vitals: Vital Signs Temp Pulse Resp BP Pulse Ox 04/03/20 11:05 68 17 134/59 100 04/03/20 08:26 98.0 F 54 L 18 132/67 98 Intake and Output 04/02/20 04/03/20 04/03/20 22:59 06:59 14:59 Other: Weight 90.718 kg On physical examination, patient appears comfortable in no apparent distress. HEAD: Normocephalic, atraumatic. EYES: No scleral icterus. No conjunctival injection. MOUTH: No lesions, tongue midline. NECK: Trachea midline, no gross abnormalities. CHEST: Clear to auscultation with no wheezing or rhonchi appreciated. HEART: Regular rate and rhythm. ABDOMEN: Soft, overweight. Bowel sounds are positive. No organomegaly. No guarding or rigidity. EXTREMITIES: No pedal edema. SKIN: No rashes, no jaundice. NEUROLOGIC: Alert and oriented x3. No focal deficits. Results CBC & Chem 7: 04/03/20 09:32 04/03/20 09:32 Labs: Abnormal Lab Results - Last 24 Hours (Table) 04/03/20 04/03/20 04/03/20 Range/Units 09:32 09:32 09:32 WBC 14.8 H (3.8-10.6) k/uL Neutrophils # 12.1 H (1.3-7.7) k/uL Potassium 3.3 L (3.5-5.1) mmol/L Glucose 136 H (74-99) mg/dL POC Glucose (mg/dL) (75-99) mg/dL Total Bilirubin 1.9 H (0.2-1.3) mg/dL Alkaline Phosphatase 31 L (38-126) U/L Urine Ketones 2+ H (Negative) Amorphous Sediment Rare H (None) /hpf 04/03/20 Range/Units 11:09 WBC (3.8-10.6) k/uL Neutrophils # (1.3-7.7) k/uL Potassium (3.5-5.1) mmol/L Glucose (74-99) mg/dL POC Glucose (mg/dL) 119 H (75-99) mg/dL Total Bilirubin (0.2-1.3) mg/dL Alkaline Phosphatase (38-126) U/L Urine Ketones (Negative) Amorphous Sediment (None) /hpf US - abdomen: report reviewed (Normal gallbladder, no acute process on ultrasound of the abdomen.) Assessment and Plan (1) Cyclical vomiting Current Visit: Yes Status: Acute Code(s): R11.15 - CYCLICAL VOMITING SYNDROME UNRELATED TO MIGRAINE SNOMED Code(s): 09245045 (2) Intractable nausea and vomiting Narrative/Plan: 24-year-old male with long-standing history of intractable nausea and vomiting, cyclical vomiting presenting for nausea, vomiting and dehydration. Patient previously seen in the outpatient setting with antireflux measures provided including Protonix, Pepcid as well as lifestyle and dietary modifications. He does report improvement in symptoms with such measures as avoiding eating late at night as well as the medical treatment. However he presented to the hospital due to multiple episodes of nausea and vomiting. He does have a known history of marijuana abuse. No prior endoscopic evaluation. Ultrasound of the abdomen on presentation negative for any acute intra-abdominal process. Unclear etiology, may be related to marijuana/cannabinoid hyperemesis syndrome, uncontrolled reflux, peptic ulcer disease or other etiology. Current Visit: Yes Status: Acute Code(s): R11.2 - NAUSEA WITH VOMITING, UNSPECIFIED SNOMED Code(s): 484295469 (3) GERD (gastroesophageal reflux disease) Current Visit: Yes Status: Acute Code(s): K21.9 - GASTRO-ESOPHAGEAL REFLUX DISEASE WITHOUT ESOPHAGITIS SNOMED Code(s): 274982500 Plan: Supportive care Clear liquid diet Nothing by mouth after midnight Continue PPI therapy Marijuana abstinence Plan for EGD tomorrow for further evaluation IV fluid hydration Thank you for allowing us to participate in the care of the patient we will continue to follow
[2020-04-04] MEDS: PANTOPRAZOLE 40 MG/10 ML VIAL IV SCH (07:48)
[2020-04-04] MEDS: LACTATED RINGERS 1,000 ML IV SCH ×2 (07:53→11:42)
[2020-04-04] MEDS ORDERED: NALOXONE 0.4 MG/ML 1 ML VIAL IV PRN (08:55)
[2020-04-04] MEDS ORDERED: PANTOPRAZOLE 40 MG/10 ML VIAL IV SCH (09:00)
[2020-04-04 09:11] LABS: Basophils % (A) 0 %; Eosinophils # (A) 0.1 k/uL (0-0.7); Eosinophils % (A) 1 %; HCT 41.8 % (39.0-53.0); HGB 13.7 gm/dL (13.0-17.5); Lymphocytes # (A) 3.4 k/uL (1.0-4.8); Lymphocytes % (A) 40 %; MCH 31.7 pg (25.0-35.0); MCHC 32.8 g/dL (31.0-37.0); MCV 96.6 fL (80.0-100.0); Mean Platelet Volume 7.8; Monocytes # (A) 0.5 k/uL (0-1.0); Monocytes % (A) 6 %; Neutrophils # (A) 4.4 k/uL (1.3-7.7); Neutrophils % (A) 51 %; Platelet Count 211 k/uL (150-450); RBC 4.33 m/uL (4.30-5.90); RDW 12.1 % (11.5-15.5); WBC 8.6 k/uL (3.8-10.6)
[2020-04-04 09:16] VITALS: RESP 13
[2020-04-04 09:24] LABS: ALT 15 U/L (4-49); AST 19 U/L (17-59); African American GFR (CKD) >90 (>60 ml/min/1.73 sqM); Albumin 3.9 g/dL (3.5-5.0); Alkaline Phosphatase 32 U/L (38-126); Anion Gap 7 mmol/L; Bilirubin, Delta 0.1 mg/dL (0.0-0.2); Blood Urea Nitrogen 7 mg/dL (9-20); Calcium 8.7 mg/dL (8.4-10.2); Carbon Dioxide 26 mmol/L (22-30); Chloride 105 mmol/L (98-107); Glucose 102 mg/dL (74-99); Magnesium 1.8 mg/dL (1.6-2.3); Non-African American GFR(CKD) >90 (>60 ml/min/1.73 sqM); Potassium 3.3 mmol/L (3.5-5.1); Sodium 138 mmol/L (137-145); Total Bilirubin 2.1 mg/dL (0.2-1.3); Total Protein 6.2 g/dL (6.3-8.2)
[2020-04-04] MEDS: NICOTINE 21MG/24HR PATCH TRANSDERM SCH (11:42)
[2020-04-04 11:50] LABS: Glucose,Whole Blood 101 mg/dL (75-99)
[2020-04-04] MEDS ORDERED: IV FLUID CONTINUATION 1,000 ML IV ONE (13:43)
--- NOTE | 2020-04-04 13:43 | P.DS ---
Providers Date of admission: 04/03/20 10:30 Attending physician: Gil Barrientos MD Consults: 04/03/20 10:18 Consult Physician Routine Consulting Provider: Harsh Goss Consult Reason/Comments: intractable NV, abdominal pain, Do you want consulting provider notified?: Yes Primary care physician: Stated None Hospital Course: 1. Dehydration 2. Intractable nausea/vomiting 3. Cyclic vomiting syndrome 4. Hyperglycemia 5. Marijuana use next 24-year-old man with a past medical history marijuana use and cyclic vomiting syndrome presented with intractable nausea/vomiting since of last week causing dehydration with ketogenic urine; admitted for evaluation by GI. Pt to undergo EGD, then be discharged with final recommendations from malt liquors sales representative. During hospitalization, he was given IVF, PRN nausea medications, and ativan to abort episode of cyclical vomiting. On discharge, he was prescribed sumatriptan PRN for [facility] as an abortive measure should he have another episode. Marijuana cessation was re-emphasized. A1c was <5.7. Pt to follow up with PCP. Patient Condition at Discharge: Fair Plan - Discharge Summary Discharge Rx Participant: No New Discharge Prescriptions: New SUMAtriptan SUCCINATE [Imitrex] 25 mg PO Q2-3H PRN #30 tablet PRN Reason: Nausea/Vomiting Continue Famotidine [Pepcid] 20 mg PO HS Ondansetron Odt [Zofran ODT] 4 mg PO Q8HR PRN PRN Reason: Nausea And Vomiting Pantoprazole Sodium [Protonix] 40 mg PO BID Discharge Medication List Famotidine [Pepcid] 20 mg PO HS 02/28/20 [History] Ondansetron Odt [Zofran ODT] 4 mg PO Q8HR PRN 04/03/20 [History] Pantoprazole Sodium [Protonix] 40 mg PO BID 04/03/20 [History] SUMAtriptan SUCCINATE [Imitrex] 25 mg PO Q2-3H PRN #30 tablet 04/04/20 [Rx] Follow up Appointment(s)/Referral(s): None,Stated [Primary Care Provider] - 1-2 days Discharge Disposition: HOME SELF-CARE
[2020-04-04] MEDS ORDERED: PROPOFOL 10 MG/ML 20 ML VIAL IV ONE (13:48)
[2020-04-04] MEDS ORDERED: LIDOCAINE 1% INJ 10MG/ML (20 ML MDV) ONE (13:48)
--- NOTE | 2020-04-04 14:05 | P.PCN ---
Date of Procedure: 04/04/20 Description of Procedure: BRIEF HISTORY: 24-year-old male with a medical history significant for marijuana abuse, cyclical vomiting syndrome, GERD who presented to the hospital due to nausea, vomiting and poor oral intake. The patient reports symptoms occurring over the past few days prior to presentation. He has had multiple episodes of nausea and vomiting and been unable to hold down oral intake. The patient has a known history of marijuana abuse and has been told to remain abstinent in the past. In addition he followed up in the gastroenterology clinic a few months ago at which time he was told about GERD and was given the multiple lifestyle modifications to decrease acid reflux including avoiding trigger foods and eating late at night. He was also given medical therapy with PPIs and H2 antagonists. He reports much improvement in his symptoms with this regimen. He also notes that if he eats late at night or has dietary indiscretions his symptoms worsen. However he presents to the hospital after having multiple episodes of nonbloody nonbilious emesis. No prior EGD or colonoscopy reported. Ultrasound of the abdomen negative for any acute hepatobiliary pathology. PROCEDURE PERFORMED: Esophagogastroduodenoscopy with biopsy. PREOPERATIVE DIAGNOSIS: Intractable nausea and vomiting, epigastric abdominal pain, GERD. ESTIMATED BLOOD LOSS: Minimal. IV sedation per anesthesia. PROCEDURE: After informed consent was obtained, the patient was brought into the endoscopy unit. IV sedation was administered by Anesthesia under continuous monitoring. Initially the Olympus GIF-190 video endoscope was inserted into the mouth. Esophagus intubated without any difficulty. It was gradually advanced into the stomach and duodenum and carefully examined. The bulb and the second part of the duodenum appeared normal, with biopsies taken. The scope at this time was withdrawn to the stomach, adequately insufflated with air, and upon careful examination, mucosa of the antrum, body, cardia and the fundus appeared normal, except for some mild scattered erythema in the antrum and body suggestive of mild gastritis with biopsies taken. The scope was then withdrawn into the esophagus. The GE junction was located at 39 cm from the incisors, with biopsies taken. There was some erythema and inflammation in the distal esophagus consistent with LA grade B distal esophagitis. The esophagus appeared normal. There were no erosions or ulcerations seen and the patient tolerated the procedure well. IMPRESSION: 1. Mild gastritis. 2. LA grade B distal esophagitis. 3. Biopsies of the duodenum, GE junction and antrum and body. RECOMMENDATIONS: The findings of this examination were discussed with the patient. Okay for full liquid diet. Continue PPI therapy. Continue antiemetics as needed. Okay for discharge when otherwise medically stable. Follow-up in GI clinic as previously scheduled.
[2020-04-04 14:49] VITALS: BP 132/81; PULSE 49; TEMP 97.8
[2020-04-04] MEDS ORDERED: ONDANSETRON 4 MG/2 ML VIAL IVP SCH (16:00)
[2020-04-04 17:44] LABS: Gliadin AB IgA, Deaminated NEGATIVE (NEGATIVE); Gliadin AB IgA, Unit 2.7 U/mL
[2020-04-04 17:46] LABS: Gliadin AB IgG, Deaminated NEGATIVE (NEGATIVE)
[2020-04-05] MEDS ORDERED: PANTOPRAZOLE 40 MG TABLET PO SCH (07:30)
== END 2020-04-04 15:01 | disposition home or self-care (01) ==
LOC: EC 08:24 → 1SOBS 10:30 → OBSVTOIN 10:30 → INTOOBSV 10:30 → UNDODISIN 04-04 15:01 → UNDODISOB 04-04 15:01
PROVIDERS: ADMIT Family Medicine; ATTEND Family Medicine
PROC: 0DB98ZX Excision of Duodenum, Via Natural or Artificial Opening Endoscopic, Diagnostic (ICD-10-PCS; principal; 2020-04-04 13:50)
PROC: 0DB78ZX Excision of Stomach, Pylorus, Via Natural or Artificial Opening Endoscopic, Diagnostic (ICD-10-PCS; principal; 2020-04-04 13:50)
PROC: 0DB48ZX Excision of Esophagogastric Junction, Via Natural or Artificial Opening Endoscopic, Diagnostic (ICD-10-PCS; principal; 2020-04-04 13:50)
DX: K21.0 Gastro-esophageal reflux disease with esophagitis (principal); R11.15 Cyclical vomiting syndrome unrelated to migraine; E86.0 Dehydration; K29.50 Unspecified chronic gastritis without bleeding; F17.200 Nicotine dependence, unspecified, uncomplicated; F43.10 Post-traumatic stress disorder, unspecified; E87.6 Hypokalemia; F12.10 Cannabis abuse, uncomplicated; D72.829 Elevated white blood cell count, unspecified; R73.9 Hyperglycemia, unspecified; Z79.899 Other long term (current) drug therapy; Z98.890 Other specified postprocedural states; Z83.3 Family history of diabetes mellitus; Z81.1 Family history of alcohol abuse and dependence
CPT/HCPCS: 96361 ×2; 96375 ×2; 96376 ×2; 96374; 99284; 99285; 36415; 82010; 88305; 80053; 80048; 80076; 82150; 83690; 83735; 85025 ×2; 81001; 83516 ×4; 83036; 76700; 43239; G0378 ×2; S4990 ×2; J1200; J2765; J2405 ×2; J2001; J2704; C9113 ×2

== ENCOUNTER 2020-06-10 15:13 | Emergency (ER) | payer OTHER ==
[2020-06-10] MEDS ORDERED: SODIUM CHLORIDE 0.9% 1,000 ML IV STA (15:29)
[2020-06-10] MEDS ORDERED: ONDANSETRON 4 MG/2 ML VIAL IVP STA (15:29)
[2020-06-10] MEDS ORDERED: METOCLOPRAMIDE 5 MG/ML 2 ML VIAL IVP STA (15:47)
[2020-06-10 15:51] LABS: Basophils % (A) 0 %; Eosinophils # (A) 0.1 k/uL (0-0.7); Eosinophils % (A) 0 %; HCT 47.6 % (39.0-53.0); HGB 16.2 gm/dL (13.0-17.5); Lymphocytes # (A) 0.8 k/uL (1.0-4.8); Lymphocytes % (A) 6 %; MCH 32.9 pg (25.0-35.0); MCV 96.8 fL (80.0-100.0); Mean Platelet Volume 7.5; Monocytes # (A) 0.5 k/uL (0-1.0); Monocytes % (A) 4 %; Neutrophils # (A) 13.6 k/uL (1.3-7.7); Neutrophils % (A) 90 %; Platelet Count 240 k/uL (150-450); RBC 4.92 m/uL (4.30-5.90); WBC 15.1 k/uL (3.8-10.6)
[2020-06-10 16:04] LABS: ALT 23 U/L (4-49); AST 32 U/L (17-59); African American GFR (CKD) >90 (>60 ml/min/1.73 sqM); Albumin 4.7 g/dL (3.5-5.0); Alkaline Phosphatase 39 U/L (38-126); Anion Gap 11 mmol/L; Blood Urea Nitrogen 29 mg/dL (9-20); Carbon Dioxide 25 mmol/L (22-30); Chloride 100 mmol/L (98-107); Glucose 124 mg/dL (74-99); Non-African American GFR(CKD) >90 (>60 ml/min/1.73 sqM); Potassium 3.4 mmol/L (3.5-5.1); Sodium 136 mmol/L (137-145); Total Bilirubin 1.8 mg/dL (0.2-1.3); Total Protein 7.5 g/dL (6.3-8.2)
--- NOTE | 2020-06-10 16:09 | ED ---
General Adult HPI - General Chief complaint: Nausea/Vomiting/Diarrhea Stated complaint: vomiting Time Seen by Provider: 06/10/20 15:20 Source: patient, EMS, RN notes reviewed, old records reviewed Mode of arrival: EMS Limitations: no limitations - History of Present Illness Initial comments: 24-year-old male patient to ED for evaluation nausea and vomiting abdominal pain. Patient reports that he has history of cyclic vomiting. Believes he is having an exacerbation of this. Reports that last 2 days she has been having nausea vomiting some generalized abdominal discomfort. Denies any other acute complaints. Systemic: Pt denies fatigue, fever/chills, rash. Pt denies weakness, night sweats, weight loss. Neuro: Pt denies headache, visual disturbances, syncope or pre-syncope. HEENT: Pt denies ocular discharge or irritation, otalgia, rhinorrhea, pharyngitis or notable lymphadenopathy. Cardiopulmonary: Pt denies chest pain, SOB, heart palpitations, dyspnea on exertion. : Pt denies dysuria, burning w/ urination, frequency/urgency. Denies new onset urinary or bowel incontinence. MSK: Pt denies myalgia, loss of strength or function in extremities. Neuro: Pt denies new onset weakness, paresthesias. - Related Data Home Medications Medication Instructions Recorded Confirmed Famotidine [Pepcid] 20 mg PO HS 02/28/20 04/03/20 Ondansetron Odt [Zofran ODT] 4 mg PO Q8HR PRN 04/03/20 04/03/20 Pantoprazole Sodium [Protonix] 40 mg PO BID 04/03/20 04/03/20 Previous Rx's Medication Instructions Recorded SUMAtriptan SUCCINATE [Imitrex] 25 mg PO Q2-3H PRN #30 tablet 04/04/20 Allergies Allergy/AdvReac Type Severity Reaction Status Date / Time No Known Allergies Allergy Verified 04/03/20 12:00 Review of Systems ROS Statement: Those systems with pertinent positive or pertinent negative responses have been documented in the HPI. ROS Other: All systems not noted in ROS Statement are negative. Past Medical History Past Medical History: No Reported History Additional Past Medical History / Comment(s): Cyclic vomiting syndrome History of Any Multi-Drug Resistant Organisms: None Reported Past Surgical History: No Surgical Hx Reported Additional Past Surgical History / Comment(s): Stitches, plantar wart removed Past Anesthesia/Blood Transfusion Reactions: No Reported Reaction Additional Past Anesthesia/Blood Transfusion Reaction / Comment(s): Pt has never had surgery Past Psychological History: PTSD Smoking Status: Current some day smoker Past Alcohol Use History: None Reported Past Drug Use History: Marijuana - Past Family History Father Family Medical History: Diabetes Mellitus Additional Family Medical History / Comment(s): . Alcoholism. Mother History Unknown: Yes Additional Family Medical History / Comment(s): Hypoglycemia General Exam - General Exam Comments Initial Comments: Constitutional: NAD, AOX3, Pt has pleasant affect. HEENT: NC/AT, trachea midline, neck supple, no lymphadenopathy. External ears ap pear normal, without discharge. Mucous membranes moist. Eyes PERRLA, EOM intact. There is no scleral icterus. No pallor noted. Cardiopulmonary: RRR, no murmurs, rubs or gallops, no JVD noted. Lungs CTAB in anterior and posterior calvin. No peripheral edema. Abdominal exam: Abdomen soft and non-distended. Mild generalized abdominal tenderness. Bowel sounds active in LLQ. No hepatosplenomegaly. No ecchymosis Neuro: CN II-XII grossly intact. No nuchal rigidity. No raccon eyes, no zurita sign, no hemotympanum. No cervical spinal tenderness. MSK: No posterior calf tenderness bilaterally, homans sign negative bilaterally. Posterior tibialis and radial pulse +2 bilaterally. Sensation intact in upper and lower extremities. Full active ROM in upper and lower extremities, 5/5 stregnth. Limitations: no limitations Course Vital Signs 06/10/20 15:15 Temperature 98.2 F Pulse Rate 64 Respiratory 17 Rate Blood Pressure 162/62 O2 Sat by Pulse 100 Oximetry Medical Decision Making - Medical Decision Making 24-year-old male patient to be for nausea vomiting. Feels identical to his cyclic vomiting in the past. Patient vital signs are stable, afebrile. Physical exam initially displayed some mild abdominal discomfort.. Laboratory investigations are significant for mild dehydration mild leukocytosis likely reactive. Patient administered 1.5 L normal saline. Administered Reglan. Patient is feeling much improved. Repeat exam abdomen is soft and nontender. Patient was discharged with Zofran will follow up with primary care provider and GI tomorrow and will return to ER if any worsening symptoms. Case discussed with Dr. Burnett. - Lab Data Result diagrams: 06/10/20 15:44 06/10/20 15:44 Lab Results 06/10/20 06/10/20 06/10/20 Range/Units 15:44 15:44 17:40 WBC 15.1 H (3.8-10.6) k/uL RBC 4.92 (4.30-5.90) m/uL Hgb 16.2 (13.0-17.5) gm/dL Hct 47.6 (39.0-53.0) % MCV 96.8 (80.0-100.0) fL MCH 32.9 (25.0-35.0) pg MCHC 34.0 (31.0-37.0) g/dL RDW 12.0 (11.5-15.5) % Plt Count 240 (150-450) k/uL Neutrophils % 90 % Lymphocytes % 6 % Monocytes % 4 % Eosinophils % 0 % Basophils % 0 % Neutrophils # 13.6 H (1.3-7.7) k/uL Lymphocytes # 0.8 L (1.0-4.8) k/uL Monocytes # 0.5 (0-1.0) k/uL Eosinophils # 0.1 (0-0.7) k/uL Basophils # 0.0 (0-0.2) k/uL Sodium 136 L (137-145) mmol/L Potassium 3.4 L (3.5-5.1) mmol/L Chloride 100 (98-107) mmol/L Carbon Dioxide 25 (22-30) mmol/L Anion Gap 11 mmol/L BUN 29 H (9-20) mg/dL Creatinine 0.84 (0.66-1.25) mg/dL Est GFR (CKD-EPI)AfAm >90 (>60 ml/min/1.73 sqM) Est GFR (CKD-EPI)NonAf >90 (>60 ml/min/1.73 sqM) Glucose 124 H (74-99) mg/dL Calcium 9.0 (8.4-10.2) mg/dL Total Bilirubin 1.8 H (0.2-1.3) mg/dL AST 32 (17-59) U/L ALT 23 (4-49) U/L Alkaline Phosphatase 39 (38-126) U/L Total Protein 7.5 (6.3-8.2) g/dL Albumin 4.7 (3.5-5.0) g/dL Lipase 41 (23-300) U/L Urine Color Yellow Urine Appearance Clear (Clear) Urine pH 7.5 (5.0-8.0) Ur Specific [place] 1.022 (1.001-1.035) Urine Protein Trace H (Negative) Urine Glucose (UA) Negative (Negative) Urine Ketones 2+ H (Negative) Urine Blood Negative (Negative) Urine Nitrite Negative (Negative) Urine Bilirubin Negative (Negative) Urine Urobilinogen <2.0 (<2.0) mg/dL Ur Leukocyte Esterase Negative (Negative) Disposition Clinical Impression: Nausea and vomiting Disposition: HOME SELF-CARE Condition: Stable Instructions (If sedation given, give patient instructions): Acute Nausea and Vomiting (ED) Additional Instructions: Follow up with PCP and GI tomorrow. May use zofran every 12 hours as needed. Drink lots of water. Return to ED with any worsening symptoms. Is patient prescribed a controlled substance at d/c from ED?: No Referrals: None,Stated [Primary Care Provider] - 1-2 days John Reyes [STAFF PHYSICIAN] - 1-2 days Harsh Goss MD [STAFF PHYSICIAN] - 1-2 days
--- NOTE | 2020-06-10 16:42 | XR ---
EXAMINATION TYPE: XR KUB DATE OF EXAM: 06/10/2020 COMPARISON: None INDICATION: Abdomen pain, vomiting TECHNIQUE: Single view abdomen supine view FINDINGS: There is a normal colonic bowel gas pattern. Psoas margins are normal. No organomegaly is present. IMPRESSION: 1. Unremarkable Abdomen
[2020-06-10] MEDS ORDERED: SODIUM CHLORIDE 0.9% 500 ML 500 ML IV ONE (17:36)
[2020-06-10 17:51] LABS: Appearance,Urine Clear (Clear); Bilirubin,Urine Negative (Negative); Blood,Urine Negative (Negative); Color,Urine Yellow; Glucose,Urine (UA) Negative (Negative); Ketones,Urine 2+ (Negative); Leukocyte Esterase,Urine Negative (Negative); Nitrite,Urine Negative (Negative); PH, Urine 7.5 (5.0-8.0); Protein,Urine Trace (Negative); Specific Gravity,Urine 1.022 (1.001-1.035); Urobilinogen,Urine <2.0 mg/dL (<2.0)
[2020-06-10] MEDS ORDERED: POTASSIUM CHLORIDE ER 10 MEQ TAB.ER.PRT PO STA (18:22)
[2020-06-10] MEDS ORDERED: ONDANSETRON 4 MG ODT STARTER PACK 2 TAB BTL PO STA (18:23)
[2020-06-10] MEDS ORDERED: ONDANSETRON ODT 4 MG TAB PO STA (18:56)
--- NOTE | 2020-06-10 21:04 | CT ---
EXAMINATION TYPE: CT abdomen pelvis w con DATE OF EXAM: 06/10/2020 COMPARISON: None INDICATION: Nausea and vomiting. Abdominal pain. DLP: 1128.1 mGycm, Automated exposure control for dose reduction was used. CONTRAST: 100 mL of Isovue 300. Study performed without Oral Contrast TECHNIQUE: Axial images were obtained from above the diaphragm to the pubic rami in the axial plane a t 5 mm thick sections. Reconstructed images are reviewed on the computer in the coronal plane. FINDINGS: Limited CT sections are obtained the lung bases. The lung bases are clear. CT ABDOMEN: There appears to be some persistent mild thickening of the distal antrum on both early an d late phase contrast images. Underlying ulcer could be considered. Consider antritis. Correlate with epigastric pain Liver: Normal Spleen: Normal Pancreas: Normal Adrenal glands: The adrenal glands are normal. Gallbladder: Normal Kidneys: No masses are evident. No hydronephrosis is present. No cysts are present. Delayed images were obtained through the kidneys, which remain unremarkable. Aorta: Normal Inferior vena cava: Normal. CT PELVIS: Loops of bowel within the abdomen and pelvis are normal. Scattered diverticuli are through the sigm oid colon. The study is done without oral contrast limiting bowel evaluation. Appendix: Normal as visualized. Urinary bladder: Decompressed with limited evaluation. Genitourinary structures: Prostate is unremarkable Osseous structures: No suspicious lytic or sclerotic lesions. IMPRESSIONS: 1. Some mild thickening at the antrum of the stomach is not excluded. The patient's pain is epigastri c, consider additional evaluation for antritis or ulcer. 2. No additional suspicious abnormality to account for nausea and vomiting.
[2020-06-10 22:47] VITALS: BP 128/81; PULSE 65; RESP 16; TEMP 97.9
== END 2020-06-10 22:46 | disposition home or self-care (01) ==
LOC: EC 15:13
DX: R11.2 Nausea with vomiting, unspecified (principal); R10.84 Generalized abdominal pain; F17.200 Nicotine dependence, unspecified, uncomplicated
CPT/HCPCS: 36415; 80053; 83690; 85025; 81003; 74018; 74177; 99285; 96374; 96361 ×3; J2765; S0119; Q9967

== ENCOUNTER 2020-09-15 08:21 | Emergency (ER) | payer OTHER ==
[2020-09-15 08:28] VITALS: RESP 18
[2020-09-15] MEDS ORDERED: CAPSAICIN 0.025% CREAM 60 GM TUBE TOPICAL STA (08:31)
[2020-09-15] MEDS ORDERED: KETOROLAC 15 MG/ML 1 ML VIAL IVP STA (08:31)
[2020-09-15] MEDS ORDERED: SODIUM CHLORIDE 0.9% 2,000 ML IV ONE (08:31)
[2020-09-15] MEDS ORDERED: diphenhydrAMINE 50 MG/ML 1 ML VIAL IVP STA (08:31)
[2020-09-15 09:29] LABS: ALT 21 U/L (4-49); AST 23 U/L (17-59); African American GFR (CKD) >90 (>60 ml/min/1.73 sqM); Albumin 5.1 g/dL (3.5-5.0); Alkaline Phosphatase 42 U/L (38-126); Anion Gap 13 mmol/L; Blood Urea Nitrogen 21 mg/dL (9-20); Calcium 9.8 mg/dL (8.4-10.2); Carbon Dioxide 23 mmol/L (22-30); Chloride 104 mmol/L (98-107); Glucose 187 mg/dL (74-99); Lipase 31 U/L (23-300); Non-African American GFR(CKD) >90 (>60 ml/min/1.73 sqM); Potassium 3.8 mmol/L (3.5-5.1); Sodium 140 mmol/L (137-145); Total Bilirubin 1.3 mg/dL (0.2-1.3); Total Protein 8.2 g/dL (6.3-8.2)
[2020-09-15 09:32] LABS: Basophils % (A) 0 %; Eosinophils % (A) 0 %; HCT 47.5 % (39.0-53.0); HGB 16.3 gm/dL (13.0-17.5); Lymphocytes # (A) 0.8 k/uL (1.0-4.8); Lymphocytes % (A) 4 %; MCH 32.4 pg (25.0-35.0); MCHC 34.2 g/dL (31.0-37.0); MCV 94.6 fL (80.0-100.0); Mean Platelet Volume 7.5; Monocytes # (A) 0.3 k/uL (0-1.0); Monocytes % (A) 2 %; Neutrophils # (A) 17.3 k/uL (1.3-7.7); Neutrophils % (A) 94 %; Platelet Count 268 k/uL (150-450); RBC 5.03 m/uL (4.30-5.90); RDW 12.4 % (11.5-15.5); WBC 18.5 k/uL (3.8-10.6)
--- NOTE | 2020-09-15 09:39 | ED ---
General Adult HPI - General Chief complaint: Nausea/Vomiting/Diarrhea Stated complaint: Nausea/vomiting Time Seen by Provider: 09/15/20 08:23 Source: patient, EMS, RN notes reviewed Mode of arrival: EMS Limitations: no limitations - History of Present Illness Initial comments: 24-year-old male presents emergency Department with chief complaint of nausea vomiting. Patient has a chronic history of cyclic vomiting syndrome. Patient does use marijuana. Patient states she's been having vomiting since yesterday diffuse abdominal pain cramping. No fevers or chills no chest pain no significant diarrhea states his been slight. No dysuria no hematuria. Patient has been seen by multiple providers in the past. GI primary and multiple ER visits. - Related Data Previous Rx's Medication Instructions Recorded Ondansetron Odt [Zofran Odt] 4 mg PO Q8HR PRN #14 tab 09/15/20 Allergies Allergy/AdvReac Type Severity Reaction Status Date / Time No Known Allergies Allergy Verified 09/15/20 10:00 Review of Systems ROS Statement: Those systems with pertinent positive or pertinent negative responses have been documented in the HPI. ROS Other: All systems not noted in ROS Statement are negative. Past Medical History Past Medical History: No Reported History Additional Past Medical History / Comment(s): Cyclic vomiting syndrome History of Any Multi-Drug Resistant Organisms: None Reported Past Surgical History: No Surgical Hx Reported Additional Past Surgical History / Comment(s): Stitches, plantar wart removed Past Anesthesia/Blood Transfusion Reactions: No Reported Reaction Additional Past Anesthesia/Blood Transfusion Reaction / Comment(s): Pt has never had surgery Past Psychological History: PTSD Smoking Status: Current every day smoker Past Alcohol Use History: None Reported Past Drug Use History: Marijuana - Past Family History Father Family Medical History: Diabetes Mellitus Additional Family Medical History / Comment(s): . Alcoholism. Mother History Unknown: Yes Additional Family Medical History / Comment(s): Hypoglycemia General Exam Limitations: no limitations General appearance: alert, in no apparent distress Head exam: Present: atraumatic, normocephalic, normal inspection Eye exam: Present: normal appearance, PERRL, EOMI. Absent: scleral icterus, conjunctival injection, periorbital swelling ENT exam: Present: normal exam, normal oropharynx, mucous membranes moist Neck exam: Present: normal inspection, full ROM. Absent: tenderness, meningismus, lymphadenopathy Respiratory exam: Present: normal lung sounds bilaterally. Absent: respiratory distress, wheezes, rales, rhonchi, stridor Cardiovascular Exam: Present: regular rate, normal rhythm, normal heart sounds. Absent: systolic murmur, diastolic murmur, rubs, gallop, clicks GI/Abdominal exam: Present: soft, normal bowel sounds. Absent: distended, tenderness, guarding, rebound, rigid Back exam: Absent: CVA tenderness (R), CVA tenderness (L) Neurological exam: Present: alert Skin exam: Present: warm, dry, intact, normal color. Absent: rash Course Vital Signs 09/15/20 08:22 Temperature 98.5 F Pulse Rate 79 Respiratory 18 Rate Blood Pressure 116/52 O2 Sat by Pulse 99 Oximetry EKG Findings - EKG Comments: EKG Findings:: EKG performed at 8:37 sinus bradycardia with sinus arrhythmia rate of 51 PA 174 QRS 98 QT/QTC 450/414 Medical Decision Making - Medical Decision Making 24-year-old male presented for nausea vomiting patient was given antiemetics, fluids has greatly improved. Patient has been sleeping for over an hour in the room with no recurrence of vomiting. Patient's will be discharged with antiemetics recommend to discontinue marijuana use and follow-up with PCP and GI - Lab Data Result diagrams: 09/15/20 09:09 09/15/20 09:09 Lab Results 09/15/20 09/15/20 Range/Units 09:09 09:09 WBC 18.5 H (3.8-10.6) k/uL RBC 5.03 (4.30-5.90) m/uL Hgb 16.3 (13.0-17.5) gm/dL Hct 47.5 (39.0-53.0) % MCV 94.6 (80.0-100.0) fL MCH 32.4 (25.0-35.0) pg MCHC 34.2 (31.0-37.0) g/dL RDW 12.4 (11.5-15.5) % Plt Count 268 (150-450) k/uL MPV 7.5 Neutrophils % 94 % Lymphocytes % 4 % Monocytes % 2 % Eosinophils % 0 % Basophils % 0 % Neutrophils # 17.3 H (1.3-7.7) k/uL Lymphocytes # 0.8 L (1.0-4.8) k/uL Monocytes # 0.3 (0-1.0) k/uL Eosinophils # 0.0 (0-0.7) k/uL Basophils # 0.0 (0-0.2) k/uL Sodium 140 (137-145) mmol/L Potassium 3.8 (3.5-5.1) mmol/L Chloride 104 (98-107) mmol/L Carbon Dioxide 23 (22-30) mmol/L Anion Gap 13 mmol/L BUN 21 H (9-20) mg/dL Creatinine 0.72 (0.66-1.25) mg/dL Est GFR (CKD-EPI)AfAm >90 (>60 ml/min/1.73 sqM) Est GFR (CKD-EPI)NonAf >90 (>60 ml/min/1.73 sqM) Glucose 187 H (74-99) mg/dL Calcium 9.8 (8.4-10.2) mg/dL Total Bilirubin 1.3 (0.2-1.3) mg/dL AST 23 (17-59) U/L ALT 21 (4-49) U/L Alkaline Phosphatase 42 (38-126) U/L Total Protein 8.2 (6.3-8.2) g/dL Albumin 5.1 H (3.5-5.0) g/dL Lipase 31 (23-300) U/L Disposition Clinical Impression: Nausea & vomiting, Dehydration Disposition: HOME SELF-CARE Condition: Stable Instructions (If sedation given, give patient instructions): Acute Nausea and Vomiting (ED) Additional Instructions: Please return to the Emergency Department if symptoms worsen or any other concerns. Prescriptions: Ondansetron Odt [Zofran Odt] 4 mg PO Q8HR PRN #14 tab PRN Reason: Nausea Is patient prescribed a controlled substance at d/c from ED?: No Referrals: None,Stated [Primary Care Provider] - 1-2 days Time of Disposition: 10:15
[2020-09-15 10:54] VITALS: BP 118/72; PULSE 74; TEMP 98.1
== END 2020-09-15 10:53 | disposition home or self-care (01) ==
LOC: EC 08:21
DX: E86.0 Dehydration (principal); R11.2 Nausea with vomiting, unspecified; R10.9 Unspecified abdominal pain; F17.200 Nicotine dependence, unspecified, uncomplicated
CPT/HCPCS: 36415; 93005; 80053; 83690; 85025; 99284; 96374; 96375 ×2; 96361; J1200; J1885; J1790

== ENCOUNTER 2020-11-10 13:30 | Emergency (ER) | payer OTHER ==
[2020-11-10 13:34] VITALS: TEMP 98.5
[2020-11-10] MEDS ORDERED: SODIUM CHLORIDE 0.9% 500 ML 500 ML IV ONE (13:49)
--- NOTE | 2020-11-10 13:51 | ED ---
General Adult HPI - General Chief complaint: Nausea/Vomiting/Diarrhea Stated complaint: Vomiting Time Seen by Provider: 11/10/20 13:40 Source: patient, EMS, RN notes reviewed, old records reviewed Mode of arrival: EMS Limitations: no limitations - History of Present Illness Initial comments: This is a 25-year-old male who presents to the emergency department with a past history of cyclic vomiting. Patient states she's a daily marijuana smoker but does not believe that's the cause. Patient states it started a couple days ago and it continues today. Patient complains of diffuse abdominal pain. Patient denies any fever chills per patient denies any diarrhea. Patient denies any chest pain palpitations difficulty breathing shortness of breath. - Related Data Home Medications Medication Instructions Recorded Confirmed Famotidine [Pepcid] 20 mg PO DAILY 11/10/20 11/10/20 Pantoprazole Sodium [Protonix] 40 mg PO BID 11/10/20 11/10/20 Previous Rx's Medication Instructions Recorded Ondansetron Odt [Zofran Odt] 4 mg PO Q8HR PRN #14 tab 09/15/20 Allergies Allergy/AdvReac Type Severity Reaction Status Date / Time No Known Allergies Allergy Verified 11/10/20 14:03 Review of Systems ROS Statement: Those systems with pertinent positive or pertinent negative responses have been documented in the HPI. ROS Other: All systems not noted in ROS Statement are negative. Past Medical History Past Medical History: No Reported History Additional Past Medical History / Comment(s): Cyclic vomiting syndrome History of Any Multi-Drug Resistant Organisms: None Reported Past Surgical History: No Surgical Hx Reported Additional Past Surgical History / Comment(s): Stitches, plantar wart removed Past Anesthesia/Blood Transfusion Reactions: No Reported Reaction Additional Past Anesthesia/Blood Transfusion Reaction / Comment(s): Pt has never had surgery Past Psychological History: PTSD Smoking Status: Current every day smoker Past Alcohol Use History: None Reported Past Drug Use History: Marijuana - Past Family History Father Family Medical History: Diabetes Mellitus Additional Family Medical History / Comment(s): . Alcoholism. Mother History Unknown: Yes Additional Family Medical History / Comment(s): Hypoglycemia General Exam - General Exam Comments Initial Comments: GENERAL: Patient is well-developed and well-nourished. Patient is nontoxic and well-hydrated and is in no acute distress. ENT: Neck is soft and supple. No significant lymphadenopathy is noted. Oropharynx is clear. Moist mucous membranes. Neck has full range of motion without eliciting any pain. EYES: The sclera were anicteric and conjunctiva were pink and moist. Extraocular movements were intact and pupils were equal round and reactive to light. Eyelids were unremarkable. PULMONARY: Unlabored respirations. Good breath sounds bilaterally. No audible rales rhonchi or wheezing was noted. CARDIOVASCULAR: There is a regular rate and rhythm without any murmurs gallops or rubs. ABDOMEN: Soft and nontender with normal bowel sounds. SKIN: Skin is clear with no lesions or rashes and otherwise unremarkable. NEUROLOGIC: Patient is alert and oriented x3. Cranial nerves II through XII are grossly intact. Motor and sensory are also intact. Normal speech, volume and content. Symmetrical smile. MUSCULOSKELETAL: Normal extremities with adequate strength and full range of motion. No lower extremity swelling or edema. No calf tenderness. LYMPHATICS: No significant lymphadenopathy is noted PSYCHIATRIC: Normal psychiatric evaluation. Limitations: no limitations Course Vital Signs 11/10/20 11/10/20 11/10/20 13:31 15:11 15:22 Temperature 98.5 F 98.5 F Pulse Rate 63 88 88 Respiratory 16 18 18 Rate Blood Pressure 135/105 157/100 157/100 O2 Sat by Pulse 100 97 97 Oximetry Medical Decision Making - Medical Decision Making EKG shows sinus bradycardia 55 bpm NC interval 170 [place] is 80 QT interval 11/28/1969 QTC is 407. Patient's EKG shows no ST segment elevation or depression. Patient received droperidol and was not vomiting anymore the emergency department in fact was sleeping when I went back into the room. Patient did request multiple times for pain medicines but since he was sleeping and in no distress and did not give him any pain medicines at this time. I recommend he stop smoking marijuana he did not seem to agree with that thought. - Lab Data Result diagrams: 11/10/20 13:59 11/10/20 13:59 Lab Results 11/10/20 11/10/20 Range/Units 13:59 13:59 WBC 16.3 H (3.8-10.6) k/uL RBC 4.88 (4.30-5.90) m/uL Hgb 16.0 (13.0-17.5) gm/dL Hct 45.9 (39.0-53.0) % MCV 94.1 (80.0-100.0) fL MCH 32.9 (25.0-35.0) pg MCHC 34.9 (31.0-37.0) g/dL RDW 12.0 (11.5-15.5) % Plt Count 267 (150-450) k/uL MPV 7.4 Neutrophils % 93 % Lymphocytes % 5 % Monocytes % 2 % Eosinophils % 0 % Basophils % 0 % Neutrophils # 15.1 H (1.3-7.7) k/uL Lymphocytes # 0.8 L (1.0-4.8) k/uL Monocytes # 0.3 (0-1.0) k/uL Eosinophils # 0.0 (0-0.7) k/uL Basophils # 0.0 (0-0.2) k/uL Sodium 137 (137-145) mmol/L Potassium 4.2 (3.5-5.1) mmol/L Chloride 103 (98-107) mmol/L Carbon Dioxide 23 (22-30) mmol/L Anion Gap 11 mmol/L BUN 13 (9-20) mg/dL Creatinine 0.67 (0.66-1.25) mg/dL Est GFR (CKD-EPI)AfAm >90 (>60 ml/min/1.73 sqM) Est GFR (CKD-EPI)NonAf >90 (>60 ml/min/1.73 sqM) Glucose 157 H (74-99) mg/dL Calcium 9.8 (8.4-10.2) mg/dL Total Bilirubin 0.8 (0.2-1.3) mg/dL AST 27 (17-59) U/L ALT 24 (4-49) U/L Alkaline Phosphatase 50 (38-126) U/L Total Protein 8.1 (6.3-8.2) g/dL Albumin 5.1 H (3.5-5.0) g/dL Lipase 52 (23-300) U/L Disposition Clinical Impression: Cyclic vomiting syndrome Disposition: HOME SELF-CARE Instructions (If sedation given, give patient instructions): Acute Nausea and Vomiting (ED) Additional Instructions: Stop smoking marijuana Follow-up with Dr. Goss Is patient prescribed a controlled substance at d/c from ED?: No Referrals: None,Stated [Primary Care Provider] - 1-2 days Time of Disposition: 15:07
[2020-11-10 14:18] LABS: Basophils % (A) 0 %; Eosinophils % (A) 0 %; HCT 45.9 % (39.0-53.0); Lymphocytes # (A) 0.8 k/uL (1.0-4.8); Lymphocytes % (A) 5 %; MCH 32.9 pg (25.0-35.0); MCHC 34.9 g/dL (31.0-37.0); MCV 94.1 fL (80.0-100.0); Mean Platelet Volume 7.4; Monocytes # (A) 0.3 k/uL (0-1.0); Monocytes % (A) 2 %; Neutrophils # (A) 15.1 k/uL (1.3-7.7); Neutrophils % (A) 93 %; Platelet Count 267 k/uL (150-450); RBC 4.88 m/uL (4.30-5.90); WBC 16.3 k/uL (3.8-10.6)
[2020-11-10 14:28] LABS: ALT 24 U/L (4-49); AST 27 U/L (17-59); African American GFR (CKD) >90 (>60 ml/min/1.73 sqM); Albumin 5.1 g/dL (3.5-5.0); Alkaline Phosphatase 50 U/L (38-126); Anion Gap 11 mmol/L; Blood Urea Nitrogen 13 mg/dL (9-20); Calcium 9.8 mg/dL (8.4-10.2); Carbon Dioxide 23 mmol/L (22-30); Chloride 103 mmol/L (98-107); Glucose 157 mg/dL (74-99); Lipase 52 U/L (23-300); Non-African American GFR(CKD) >90 (>60 ml/min/1.73 sqM); Potassium 4.2 mmol/L (3.5-5.1); Sodium 137 mmol/L (137-145); Total Bilirubin 0.8 mg/dL (0.2-1.3); Total Protein 8.1 g/dL (6.3-8.2)
[2020-11-10] MEDS ORDERED: ONDANSETRON 4 MG ODT STARTER PACK 2 TAB BTL PO STA (15:07)
[2020-11-10 15:12] VITALS: BP 157/100; PULSE 88; RESP 18
== END 2020-11-10 15:22 | disposition home or self-care (01) ==
LOC: EC 13:30
DX: R11.15 Cyclical vomiting syndrome unrelated to migraine (principal); R10.84 Generalized abdominal pain; F12.90 Cannabis use, unspecified, uncomplicated; F17.200 Nicotine dependence, unspecified, uncomplicated
CPT/HCPCS: 36415; 93005; 80053; 83690; 85025; 99284; 96374; 96361; J1790

== ENCOUNTER 2020-11-30 15:41 | Emergency (ER) | payer OTHER ==
[2020-11-30 15:50] VITALS: BP 96/67; PULSE 63; RESP 18; TEMP 98.2
--- NOTE | 2020-11-30 17:10 | ED ---
Lower Extremity Injury HPI - General Chief Complaint: Extremity Injury, Lower Stated Complaint: L Foot Injury Time Seen by Provider: 11/30/20 15:53 Source: patient, RN notes reviewed Mode of arrival: wheelchair Limitations: no limitations - History of Present Illness Initial Comments: This a 25-year-old male presents emergency Department chief complaint left foot injury. Patient states he was upset earlier today states he kicked the door frame. Patient states that he has pain along his first and second digit into the foot. Patient states he believes he may have broken his foot before. Patient denies any paresthesias no other complaints. - Related Data Home Medications Medication Instructions Recorded Confirmed Famotidine [Pepcid] 20 mg PO DAILY 11/10/20 11/10/20 Pantoprazole Sodium [Protonix] 40 mg PO BID 11/10/20 11/10/20 Previous Rx's Medication Instructions Recorded Ondansetron Odt [Zofran Odt] 4 mg PO Q8HR PRN #14 tab 09/15/20 Ibuprofen [Motrin] 600 mg PO Q8HR PRN #20 tab 11/30/20 Allergies Allergy/AdvReac Type Severity Reaction Status Date / Time No Known Allergies Allergy Verified 11/30/20 15:49 Review of Systems ROS Statement: Those systems with pertinent positive or pertinent negative responses have been documented in the HPI. ROS Other: All systems not noted in ROS Statement are negative. Past Medical History Past Medical History: No Reported History Additional Past Medical History / Comment(s): Cyclic vomiting syndrome History of Any Multi-Drug Resistant Organisms: None Reported Past Surgical History: No Surgical Hx Reported Additional Past Surgical History / Comment(s): Stitches, plantar wart removed Past Anesthesia/Blood Transfusion Reactions: No Reported Reaction Additional Past Anesthesia/Blood Transfusion Reaction / Comment(s): Pt has never had surgery Past Psychological History: PTSD Smoking Status: Current every day smoker Past Alcohol Use History: None Reported Past Drug Use History: Marijuana - Past Family History Father Family Medical History: Diabetes Mellitus Additional Family Medical History / Comment(s): . Alcoholism. Mother History Unknown: Yes Additional Family Medical History / Comment(s): Hypoglycemia General Exam Limitations: no limitations General appearance: alert, in no apparent distress Head exam: Present: atraumatic, normocephalic, normal inspection Respiratory exam: Present: normal lung sounds bilaterally. Absent: respiratory distress, wheezes, rales, rhonchi, stridor Cardiovascular Exam: Present: regular rate, normal rhythm, normal heart sounds. Absent: systolic murmur, diastolic murmur, rubs, gallop, clicks Extremities exam: Present: other (Left foot there is tenderness across the first, second and third metatarsal region no obvious deformity Refill less than 2 seconds) Neurological exam: Present: alert, reflexes normal. Absent: motor sensory deficit Skin exam: Present: warm, dry, intact, normal color. Absent: rash Course Vital Signs 11/30/20 15:46 Temperature 98.2 F Pulse Rate 63 Respiratory 18 Rate Blood Pressure 96/67 O2 Sat by Pulse 99 Oximetry Medical Decision Making - Medical Decision Making X-rays are unremarkable. Patient's left foot sprain. Patient discharged in stable condition return parameters were discussed. Disposition Clinical Impression: Sprain of left foot Disposition: HOME SELF-CARE Condition: Stable Instructions (If sedation given, give patient instructions): Foot Sprain (ED) Additional Instructions: Please return to the Emergency Department if symptoms worsen or any other concerns. Prescriptions: Ibuprofen [Motrin] 600 mg PO Q8HR PRN #20 tab PRN Reason: Pain Is patient prescribed a controlled substance at d/c from ED?: No Referrals: None,Stated [Primary Care Provider] - 1-2 days Chaz Duarte DO [Doctor of Osteopathic Medicine] - 1-2 days Time of Disposition: 17:28
--- NOTE | 2020-11-30 17:19 | XR ---
EXAMINATION TYPE: XR foot complete LT DATE OF EXAM: 11/30/2020 COMPARISON: NONE HISTORY: pain. TECHNIQUE: AP, lateral, and oblique views of the left foot obtained. FINDINGS: No acute fracture. No dislocation. There is minimal degenerative spurring of the talonavicu lar joint. Normal mineralization. No significant soft tissue swelling. IMPRESSION: 1. No acute fracture or dislocation. 2. Minimal degenerative spurring of the talonavicular joint.
[2020-11-30] MEDS ORDERED: ACET/COD 300 MG/30 MG STARTER PACK 6 TAB BTL PO STA (17:28)
== END 2020-11-30 17:42 | disposition home or self-care (01) ==
LOC: EC 15:41
DX: S93.602A Unspecified sprain of left foot, initial encounter (principal); F17.200 Nicotine dependence, unspecified, uncomplicated; F12.90 Cannabis use, unspecified, uncomplicated; W22.8XXA Striking against or struck by other objects, initial encounter
CPT/HCPCS: 99283

== ENCOUNTER 2021-02-01 23:30 | Observation (INO) | payer OTHER ==
[2021-02-01] MEDS ORDERED: SODIUM CHLORIDE 0.9% 1,000 ML IV STA ×2 (23:41)
[2021-02-01] MEDS ORDERED: diphenhydrAMINE 50 MG/ML 1 ML VIAL IVP STA (23:41)
[2021-02-01] MEDS ORDERED: LORazepam 2 MG/ML INJ IV STA (23:41)
[2021-02-01] MEDS ORDERED: PROCHLORPERAZINE INJ 10 MG/2 ML VIAL IVP STA (23:41)
[2021-02-01] MEDS ORDERED: SODIUM CHLORIDE 0.9% 500 ML 500 ML IV STA (23:41)
[2021-02-01] MEDS ORDERED: HYDROmorphone 1 MG/ML 1 ML SYRINGE IVP STA (23:42)
--- NOTE | 2021-02-01 23:43 | ED ---
Nausea/Vomiting/Diarrhea HPI - General Chief complaint: Nausea/Vomiting/Diarrhea Stated complaint: NVD Time Seen by Provider: 02/01/21 23:39 Source: patient, EMS, RN notes reviewed, old records reviewed Mode of arrival: EMS Limitations: no limitations - History of Present Illness Initial comments: This is a 25-year-old male he presents today for evaluation. Patient presents today in regards to persistent nausea vomiting or abdominal pain. History of CVI cyclic vomiting syndrome. Patient states he does not feel well symptoms are worsening although he states he has been doing better and has not had many ER visits as of late. Patient is without fever currently. Unable to keep down any fluids medications or anything else at home MD complaint: nausea, vomiting, abdominal pain -: days(s) Description of Vomiting: food contents Description of Diarrhea: water Location: diffuse Radiation: none Severity: severe Severity scale (1-10): 10 Quality: constant Consistency: constant, intermittent Improves with: none Worsens with: none Associated Symptoms: myalgias, loss of appetite, nausea/vomiting, weakness - Related Data Home Medications Medication Instructions Recorded Confirmed Famotidine [Pepcid] 20 mg PO DAILY 11/10/20 11/10/20 Pantoprazole Sodium [Protonix] 40 mg PO BID 11/10/20 11/10/20 Previous Rx's Medication Instructions Recorded Ondansetron Odt [Zofran Odt] 4 mg PO Q8HR PRN #14 tab 09/15/20 Ibuprofen [Motrin] 600 mg PO Q8HR PRN #20 tab 11/30/20 Allergies Allergy/AdvReac Type Severity Reaction Status Date / Time No Known Allergies Allergy Verified 11/30/20 15:49 Review of Systems ROS Statement: Those systems with pertinent positive or pertinent negative responses have been documented in the HPI. ROS Other: All systems not noted in ROS Statement are negative. Past Medical History Past Medical History: No Reported History Additional Past Medical History / Comment(s): Cyclic vomiting syndrome History of Any Multi-Drug Resistant Organisms: None Reported Past Surgical History: No Surgical Hx Reported Additional Past Surgical History / Comment(s): Stitches, plantar wart removed Past Anesthesia/Blood Transfusion Reactions: No Reported Reaction Additional Past Anesthesia/Blood Transfusion Reaction / Comment(s): Pt has never had surgery Past Psychological History: PTSD Smoking Status: Current every day smoker Past Alcohol Use History: None Reported Past Drug Use History: Marijuana - Past Family History Father Family Medical History: Diabetes Mellitus Additional Family Medical History / Comment(s): . Alcoholism. Mother History Unknown: Yes Additional Family Medical History / Comment(s): Hypoglycemia General Exam Limitations: no limitations General appearance: alert, in no apparent distress, anxious Head exam: Present: atraumatic, normocephalic, normal inspection Eye exam: Present: normal appearance, PERRL, EOMI. Absent: scleral icterus, conjunctival injection, periorbital swelling ENT exam: Present: normal exam, mucous membranes moist Neck exam: Present: normal inspection. Absent: tenderness, meningismus, lymphadenopathy Respiratory exam: Present: normal lung sounds bilaterally. Absent: respiratory distress, wheezes, rales, rhonchi, stridor Cardiovascular Exam: Present: regular rate, normal rhythm, normal heart sounds. Absent: systolic murmur, diastolic murmur, rubs, gallop, clicks GI/Abdominal exam: Present: soft, normal bowel sounds. Absent: distended, tenderness, guarding, rebound, rigid Extremities exam: Present: normal inspection, full ROM, normal capillary refill. Absent: tenderness, pedal edema, joint swelling, calf tenderness Back exam: Present: normal inspection Neurological exam: Present: alert, oriented X3, CN II-XII intact Psychiatric exam: Present: normal affect, normal mood Skin exam: Present: warm, dry, intact, normal color. Absent: rash Course Vital Signs 02/01/21 23:37 Temperature 97.9 F Pulse Rate 75 Respiratory 16 Rate Blood Pressure 115/81 O2 Sat by Pulse 100 Oximetry - Reevaluation(s) Reevaluation #1: 02/02/21 02:47 Medical record is reviewed Reevaluation #2: 02/02/21 02:47 Patient symptoms are improved Medical Decision Making - Medical Decision Making 25 male to the for evaluation patient be admitted for symptomatic treatment - Lab Data Result diagrams: 02/02/21 00:23 02/02/21 00:23 Lab Results 02/02/21 02/02/21 02/02/21 Range/Units 00:23 00:23 00:23 WBC 18.6 H (3.8-10.6) k/uL RBC 4.47 (4.30-5.90) m/uL Hgb 15.4 (13.0-17.5) gm/dL Hct 42.4 (39.0-53.0) % MCV 94.7 (80.0-100.0) fL MCH 34.3 (25.0-35.0) pg MCHC 36.3 (31.0-37.0) g/dL RDW 12.7 (11.5-15.5) % Plt Count 244 (150-450) k/uL MPV 7.7 Neutrophils % 93 % Lymphocytes % 4 % Monocytes % 2 % Eosinophils % 0 % Basophils % 0 % Neutrophils # 17.3 H (1.3-7.7) k/uL Lymphocytes # 0.8 L (1.0-4.8) k/uL Monocytes # 0.4 (0-1.0) k/uL Eosinophils # 0.1 (0-0.7) k/uL Basophils # 0.0 (0-0.2) k/uL Sodium 142 (137-145) mmol/L Potassium 3.9 (3.5-5.1) mmol/L Chloride 106 (98-107) mmol/L Carbon Dioxide 20 L (22-30) mmol/L Anion Gap 16 mmol/L BUN 20 (9-20) mg/dL Creatinine 0.69 (0.66-1.25) mg/dL Est GFR (CKD-EPI)AfAm >90 (>60 ml/min/1.73 sqM) Est GFR (CKD-EPI)NonAf >90 (>60 ml/min/1.73 sqM) Glucose 181 H (74-99) mg/dL Plasma Lactic Acid Rodger 2.8 H* (0.7-2.0) mmol/L Calcium 9.9 (8.4-10.2) mg/dL Phosphorus 1.7 L (2.5-4.5) mg/dL Magnesium 1.7 (1.6-2.3) mg/dL Total Bilirubin 0.7 (0.2-1.3) mg/dL AST 29 (17-59) U/L ALT 21 (4-49) U/L Alkaline Phosphatase 49 (38-126) U/L Creatine Kinase 151 (55-170) U/L Total Protein 7.8 (6.3-8.2) g/dL Albumin 5.0 (3.5-5.0) g/dL Serum Alcohol <10 mg/dL Disposition Clinical Impression: Cyclical vomiting, Intractable nausea and vomiting, Nausea & vomiting Disposition: ADMITTED IP TO THIS [facility] Condition: Fair Instructions (If sedation given, give patient instructions): Acute Nausea and Vomiting (ED) Is patient prescribed a controlled substance at d/c from ED?: No Referrals: None,Stated [Primary Care Provider] - 1-2 days
[2021-02-02 00:39] LABS: Basophils % (A) 0 %; Eosinophils # (A) 0.1 k/uL (0-0.7); Eosinophils % (A) 0 %; HCT 42.4 % (39.0-53.0); HGB 15.4 gm/dL (13.0-17.5); Lymphocytes # (A) 0.8 k/uL (1.0-4.8); Lymphocytes % (A) 4 %; MCH 34.3 pg (25.0-35.0); MCHC 36.3 g/dL (31.0-37.0); MCV 94.7 fL (80.0-100.0); Mean Platelet Volume 7.7; Monocytes # (A) 0.4 k/uL (0-1.0); Monocytes % (A) 2 %; Neutrophils # (A) 17.3 k/uL (1.3-7.7); Neutrophils % (A) 93 %; Platelet Count 244 k/uL (150-450); RBC 4.47 m/uL (4.30-5.90); RDW 12.7 % (11.5-15.5); WBC 18.6 k/uL (3.8-10.6)
[2021-02-02 00:53] LABS: ALT 21 U/L (4-49); AST 29 U/L (17-59); African American GFR (CKD) >90 (>60 ml/min/1.73 sqM); Alcohol <10 mg/dL; Alkaline Phosphatase 49 U/L (38-126); Anion Gap 16 mmol/L; Blood Urea Nitrogen 20 mg/dL (9-20); Calcium 9.9 mg/dL (8.4-10.2); Carbon Dioxide 20 mmol/L (22-30); Chloride 106 mmol/L (98-107); Creatine Kinase 151 U/L (55-170); Glucose 181 mg/dL (74-99); Magnesium 1.7 mg/dL (1.6-2.3); Non-African American GFR(CKD) >90 (>60 ml/min/1.73 sqM); Phosphorus 1.7 mg/dL (2.5-4.5); Potassium 3.9 mmol/L (3.5-5.1); Sodium 142 mmol/L (137-145); Total Bilirubin 0.7 mg/dL (0.2-1.3); Total Protein 7.8 g/dL (6.3-8.2)
[2021-02-02] MEDS ORDERED: NALOXONE 0.4 MG/ML 1 ML VIAL IV PRN (02:11)
[2021-02-02] MEDS ORDERED: MORPHINE SULFATE 4 MG/ML SYRINGE IV PRN (02:11)
[2021-02-02] MEDS ORDERED: ONDANSETRON 4 MG/2 ML VIAL IVP PRN (02:11)
[2021-02-02] MEDS ORDERED: SODIUM CHLORIDE 0.9% 1,000 ML IV SCH (02:15)
[2021-02-02] MEDS ORDERED: Phosphorus Replacement Protoco 1 EACH MISC MISCELLANE PRN (04:41)
--- NOTE | 2021-02-02 04:47 | P.HPIM ---
History of Present Illness H&P Date: 02/02/21 Chief Complaint: Repeated vomiting 25-year-old male with history of cyclical vomiting syndrome Patient comes in with couple days history of worsening nausea vomiting and coup le episodes of diarrhea he denies any GI bleeding but he does report some episodes of bloody streaks in his vomiting from retching too much. He denies any fevers or chills denies any recent travel denies any sick contact he claims that these episodes has happened frequently get the past He denies any abdominal pain but cannot keep anything down even water he was started throwing up he started feeling tired foggy and dehydrated for which she decided come to the hospital to get some IV medications Patient otherwise denies any chest pain trouble breathing fevers or chills he denies any upper respiratory infection symptoms denies any sick contacts denies any abdominal pain In the ED blood work showed leukocytosis, hypophosphatemia, and lactic acidosis Review of Systems Pertinent positives as noted in HPI. All other systems were reviewed and are negative Past Medical History Past Medical History: No Reported History Additional Past Medical History / Comment(s): Cyclic vomiting syndrome History of Any Multi-Drug Resistant Organisms: None Reported Past Surgical History: No Surgical Hx Reported Additional Past Surgical History / Comment(s): Stitches, plantar wart removed Past Anesthesia/Blood Transfusion Reactions: No Reported Reaction Additional Past Anesthesia/Blood Transfusion Reaction / Comment(s): Pt has never had surgery Past Psychological History: PTSD Smoking Status: Current every day smoker Past Alcohol Use History: None Reported Past Drug Use History: Marijuana - Past Family History Father Family Medical History: Diabetes Mellitus Additional Family Medical History / Comment(s): . Alcoholism. Mother History Unknown: Yes Additional Family Medical History / Comment(s): Hypoglycemia Medications and Allergies Home Medications Medication Instructions Recorded Confirmed Type Ondansetron Odt [Zofran Odt] 4 mg PO Q8HR PRN #14 tab 09/15/20 11/10/20 Rx Famotidine [Pepcid] 20 mg PO DAILY 11/10/20 11/10/20 History Pantoprazole Sodium [Protonix] 40 mg PO BID 11/10/20 11/10/20 History Ibuprofen [Motrin] 600 mg PO Q8HR PRN #20 tab 11/30/20 Rx Allergies Allergy/AdvReac Type Severity Reaction Status Date / Time No Known Allergies Allergy Verified 11/30/20 15:49 Physical Exam Vitals: Vital Signs Temp Pulse Resp BP Pulse Ox 02/02/21 04:00 62 16 110/62 98 02/02/21 02:59 60 16 104/59 96 02/01/21 23:37 97.9 F 75 16 115/81 100 Intake and Output 02/01/21 02/01/21 02/02/21 14:59 22:59 06:59 Other: Weight 99.79 kg Constitutional: No acute distress, conversant, pleasant Eyes: Anicteric sclerae, moist conjunctiva, Pupils equal round reactive to light ENMT: NC/AT Oropharynx clear, no erythema, or exudates Neck: Supple, FROM, no masses, or JVD No carotid bruits No thyromegaly Lungs: Clear to auscultation Clear to percussion Normal respiratory effort, no accessory muscle use Cardiovascular: Heart regular in rate and rhythm, No murmurs, gallops, or rubs No peripheral edema Abdominal: Soft Nontender, no guarding, rebound or rigidity Abdomen moving with respiration Normoactive bowel sounds No hepatomegaly, No splenomegaly No palpable mass No abdominal wall hernia noted Skin: Normal temperature, tone, texture, turgor No induration No subcutaneous nodules No rash, lesions No ulcers Extremities: No digital cyanosis No clubbing Pedal pulses intact and symmetrical Radial pulses intact and symmetrical No calf tenderness Psychiatric: Alert and oriented to person, place and time Appropriate affect fair judgement Neuro Muscles Strength 5/5 in all 4 extremities Sensation to light touch grossly present throughout Cranial nerves II-XII grossly intact No focal sensory deficits Lymphatics: no palpable cervical or supraclavicular , or inguinal lymph nodes Results CBC & Chem 7: 02/02/21 00:23 02/02/21 00:23 Labs: Abnormal Lab Results - Last 24 Hours (Table) 02/02/21 02/02/21 02/02/21 Range/Units 00:23 00:23 00:23 WBC 18.6 H (3.8-10.6) k/uL Neutrophils # 17.3 H (1.3-7.7) k/uL Lymphocytes # 0.8 L (1.0-4.8) k/uL Carbon Dioxide 20 L (22-30) mmol/L Glucose 181 H (74-99) mg/dL Plasma Lactic Acid Rodger 2.8 H* (0.7-2.0) mmol/L Phosphorus 1.7 L (2.5-4.5) mg/dL Assessment and Plan Assessment: Cyclical vomiting syndrome Diarrhea, dehydration Lactic acidosis Hypophosphatemia Leukocytosis Plan Symptomatic control PPI Zofran when necessary IV fluid hydration Follow-up renal function Follow-up hemoglobin Monitor vital signs for any fevers Replace phosphorus through a peripheral line follow up phosphorus level Follow-up lactic acid level after aggressive hydration Patient encouraged to quit marijuana CODE STATUS: Full code DVT prophylaxis: Mechanical Discussed with: Patient, ER Anticipated length of stay <than [address]: Home A total of 65minutes was spent on the care of this complex patient more than 50% of the time was spent in counseling and care coordination.
[2021-02-02] MEDS: POTASSIUM PHOSPHATE 10 MMOL in SODIUM CHLORIDE 0.9% 250 ML IV SCH ×2 (05:08→07:46)
[2021-02-02] MEDS ORDERED: PANTOPRAZOLE 40 MG/10 ML VIAL IV SCH (09:00)
[2021-02-02] MEDS ORDERED: MORPHINE SULFATE 2 MG/ML SYRINGE IV PRN (10:29)
[2021-02-02] MEDS ORDERED: CALCIUM CARBONATE 500 MG CHEWABLE PO PRN (11:22)
[2021-02-02 13:10] VITALS: BP 112/70; PULSE 69; RESP 18; TEMP 97.3
--- NOTE | 2021-02-02 13:13 | P.DS ---
Providers Date of admission: 02/02/21 02:11 Expected date of discharge: 02/02/21 Attending physician: Burt Frank MD Primary care physician: Stated None Hospital Course: This is a 25-year-old male with past medical history significant for marijuana abuse who presented to the emergency room with nausea and vomiting. Patient was evaluated in the ER and placed on observation for further treatment of cyclic vomiting syndrome. He was treated with aggressive IV fluid hydration and antiemetic. His overall condition improved. He was able to tolerate regular diet on the day of discharge. He was counseled extensively to stop using marijuana. He would be discharged home in a stable condition. Patient Condition at Discharge: Fair Plan - Discharge Summary New Discharge Prescriptions: No Action No Known Home Medications Discharge Medication List No Known Home Medications 02/02/21 [History] Follow up Appointment(s)/Referral(s): None,Stated [Primary Care Provider] - 1-2 days Patient Instructions/Handouts: Acute Nausea and Vomiting (ED) Discharge Disposition: HOME SELF-CARE
== END 2021-02-02 14:38 | disposition home or self-care (01) ==
LOC: EC 23:30 → 5NMEDONC 02-02 02:11
PROVIDERS: ADMIT Internal Medicine; ATTEND Internal Medicine
DX: R11.15 Cyclical vomiting syndrome unrelated to migraine (principal); E86.0 Dehydration; E87.2 Acidosis; R19.7 Diarrhea, unspecified; D72.829 Elevated white blood cell count, unspecified; E83.39 Other disorders of phosphorus metabolism; F43.10 Post-traumatic stress disorder, unspecified; F12.10 Cannabis abuse, uncomplicated; F17.200 Nicotine dependence, unspecified, uncomplicated; Z20.822 Contact with and (suspected) exposure to COVID-19; Z79.899 Other long term (current) drug therapy; Z83.3 Family history of diabetes mellitus; Z81.1 Family history of alcohol abuse and dependence
CPT/HCPCS: 96376; 96375 ×2; 96361; 96374; 99285; 36415; 80053; 82550; 83605; 83735; 84100; 85025; 87635; G0378; G0480; J2060; J1200; J0780; J2405; J1170; C9113; 80320